=== PATIENT | female | born 2000 | race Caucasian/White ===

== ENCOUNTER 2023-01-25 05:24 | Inpatient (IN) | payer OTHER, SELFPAY ==
[2023-01-25] VITALS (40 sets, daily range): BP systolic 104–148; BP diastolic 47–84; PULSE 74–196; RESP 13–29; TEMP 36.4–36.8; O2SAT 97–100
[2023-01-25 06:33] LABS: Basophils Percent Auto 0.3 % (0.2-2.0); Eosinophils Absolute Auto 0.1 10^3/uL (0.0-0.7); Eosinophils Percent Auto 0.6 % (0.9-7.0); Hematocrit 34.1 % (36.0-48.0); Hemoglobin 11.2 g/dL (12.0-16.0); Immature Granulocytes Abs Auto 0.11 10^3/uL (0.00-0.03); Lymphocytes Percent Auto 18.3 % (20.5-60.0); Mean Corpuscular HGB Conc 32.8 g/dL (29.9-35.2); Mean Corpuscular Hemoglobin 27.8 pg (26.7-34.0); Mean Corpuscular Volume 84.6 fL (81.0-99.0); Mean Platelet Volume 12.2 fL (9.5-13.5); Monocytes Absolute Auto 0.8 10^3/uL (0.3-0.8); Monocytes Percent Auto 7.5 % (1.7-12.0); Neutrophils Percent Auto 72.3 % (43.0-75.0); Platelet Count 123 10^3/uL (150-450); Red Blood Count 4.03 10^6/uL (4.20-5.40); Red Cell Distribution Width 14.6 % (11.0-15.0)
[2023-01-25 06:35] LABS: Bilirubin Urine SMALL (NEGATIVE); Blood Urine NEGATIVE (NEGATIVE); Color Urine YELLOW (YELLOW); Glucose Urine UA NEGATIVE (NEGATIVE); Ketones Urine >=80 mg/dL (NEGATIVE); Leukocyte Esterase Urine TRACE (NEGATIVE); Nitrite Urine NEGATIVE (NEGATIVE); Protein Urine TRACE mg/dL (NEG/TRACE); Specific Gravity Urine 1.025 (1.005-1.025); pH Urine 6.5 (5.0-9.0)
[2023-01-25 06:44] LABS: Amphetamine Screen Urine NEGATIVE (NEGATIVE); Bacteria Urine SMALL #/HPF (NONE SEEN); Barbiturates Screen Urine NEGATIVE (NEGATIVE); Benzodiazepines Screen Urine NEGATIVE (NEGATIVE); Buprenorphine Screen Urine NEGATIVE (NEGATIVE); Cannabinoid Screen Urine NEGATIVE (NEGATIVE); Cast Seen? NONE SEEN #/LPF (NONE SEEN); Clarity Urine SLIGHTLY CLOUDY (CLEAR); Cocaine Screen Urine NEGATIVE (NEGATIVE); Crystals Seen? None Seen #/HPF (None Seen); Methadone Screen Urine NEGATIVE (NEGATIVE); Methamphetamines Screen Urine NEGATIVE (NEGATIVE); Mucus Urine NONE SEEN (NONE SEEN); Opiate Screen Urine NEGATIVE (NEGATIVE); Oxycodone Screen Urine NEGATIVE (NEGATIVE); Phencyclidine Screen Urine NEGATIVE (NEGATIVE); RBC Urine NONE SEEN #/HPF (0-2); Squamous Epithelial Cell Urine MANY #/LPF (NONE/RARE); Tricyclic Antidepressant Urine NEGATIVE (NEGATIVE); WBC Urine 0-2 #/HPF (NONE SEEN)
[2023-01-25] MEDS: LACTATED RINGER'S SOLUTION 1,000 ML 2000 ML IV (07:05)
--- NOTE | 2023-01-25 07:15 | P.OBHP_ITS ---
OB - H&P: HPI History of Present Illness Chief complaint: L&d : 2 Para: 1 Gestational age based on last menstrual period: 39.0 History of Present Dating criteria: LMP confirmed by 1st trimester US care: good care Ultrasounds: normal 1st trimester US and normal mid trimester US complications comment: none Medical complications OB: other Labs Blood type: A (+) positive Rubella: immune RPR/VDLR: nonreactive GBS status: positive HBsAG: negative Meds Home Medications and Allergies Allergies Allergy/AdvReac Type Severity Reaction Status Date / Time No Known Drug Allergies Allergy Verified 01/25/23 07:04 Exam Constitutional Vital Signs, click to edit/add: Last Vital Signs Temp 97.7 F 01/25/23 06:30 Pulse 116 H 01/25/23 06:30 Resp 18 01/25/23 06:30 BP 148/64 H 01/25/23 06:30 Pulse Ox 98 01/25/23 06:30 O2 Del Method Room Air 01/25/23 06:30 Common normals: no apparent distress and oriented x3 Orientation/consciousness: Yes awake, Yes oriented to person, Yes oriented to place and Yes oriented to time HENMT Common normals: normocephalic Eye Common normals: EOMs intact bilaterally Neck & C-Spine Common normals: full ROM and no lymphadenopathy Lymph Lymphatic: no lymphadenopathy noted Chest Common normals: inspection of chest normal Respiratory Common normals: normal respiratory effort Auscultation: clear to auscultation bilaterally Cardio Common normals: regular rate and regular rhythm GI Common normals: Normal to inspection, nondistended, normoactive bowel sounds present Inspection: normal to inspection Common normals: no CVA tenderness Back & Pelvis Common normals: no CVA tenderness Extremity Common normals: normal to inspection and full ROM Neuro Common normals: oriented x3 and moves all extremities Sensorium/orientation: awake, alert, oriented to person, oriented to place and oriented to time Psych Common normals: mental status grossly normal Results Labs Labs: Short CBC 01/25/23 Range/Units 06:05 WBC 11.0 (4.0-11.0) 10^3/uL Hgb 11.2 L (12.0-16.0) g/dL Hct 34.1 L (36.0-48.0) % Plt Count 123 L (150-450) 10^3/uL Urine 01/25/23 Range/Units 06:05 Urine Color Yellow (YELLOW) Urine Clarity Slightly cloudy A (CLEAR) Urine pH 6.5 (5.0-9.0) Ur Specific [place] 1.025 (1.005-1.025) Urine Protein Trace (NEG/TRACE) mg/dL Urine Glucose (UA) Negative (NEGATIVE) mg/dL OB - A/P Assessment and Plan (1) Term : (2) Status post repeat low transverse section: Plan repeat section Additional Plan Induction method: none Plan: expectant management and other (repeat section )
[2023-01-25] MEDS: ONDANSETRON PF 4 MG/2 ML VIAL IV (07:20)
[2023-01-25] MEDS: METOCLOPRAMIDE HCL 10 MG/2 ML VIAL IVP (07:20)
[2023-01-25] MEDS: CEFAZOLIN SODIUM/DEXTROSE,ISO 2 GM/50 ML PIGGYBACK IV ×2 (07:21→15:02)
[2023-01-25] MEDS: CITRIC ACID/SODIUM CITRATE 30 ML SOLUTION ORACIT SHOHL'S SOLN PO (07:21)
--- NOTE | 2023-01-25 07:30 | PC.NURSE ---
Pre-op GI meds and ATB admin as ordered. Anesthesia at bedside.
--- NOTE | 2023-01-25 08:36 | PM.ONB ---
Brief Operative Note Date of procedure: 01/25/23 Pre-op diagnosis: iup at 39wks, previous c/s Post-op diagnosis: same as pre-op Procedure: NAME OF PROCEDURE: [ section ] PROCEDURE: Patient was taken back to the Operating Room where she was given a spinal anesthesia with Duramorph without difficulty. She was prepped and draped in the normal sterile fashion. A Pfannenstiel skin incision was then made 2 cm above the symphysis pubis and carried down to underlying rectus fascia using a Bovie. The fascia was incised in the midline and extended laterally using Anderson scissors. Two Joseline clamps were placed on the superior aspect of the fascia and dissected off the underlying rectus muscles. The same was performed on the inferior aspect as well. The muscles were then in the midline. Peritoneum was identified and entered bluntly. The peritoneum was then extended superiorly and inferiorly with good visualization of the bladder. The bladder blade was inserted. A low transverse incision was made on the patient's uterus and extended laterally digitally. The infant was then delivered atraumatically after the bladder blade was removed in the cephalic position. The cord was clamped and cut. Cord blood was obtained. The was handed off to awaiting team. The patient's placenta was spontaneously delivered. The uterus was then exteriorized. The uterus was cleared of all clots and debris. The bladder blade was reinserted. The patient's uterine incision was closed using #0 Vicryl in a running lock fashion. Excellent hemostasis was assured. The uterus was then returned to the patient's abdomen. The patient's abdomen was copiously irrigated using warm saline. Peritoneal gutters were cleared of all clots and debris. Again excellent hemostasis was assured. The patient's peritoneum was closed using 3-0 Vicryl in a running fashion. The patient's fascia was closed using #0 Vicryl in a running fashion. The patient's skin was closed using 4-0 Vicryl subcuticularly. The patient tolerated the procedure well. Sponge, lap, and needle counts were correct x2. The patient was taken to the Recovery Room in stable condition. Anesthesia: spinal Surgeon: Oleksandr Roberson Wood Floor Refinisher: HOOD AMADOR Estimated blood loss (mL): 600 Pathology: none sent Condition: stable Disposition: floor
--- NOTE | 2023-01-25 08:37 | PM.OBPRCCS ---
Procedure Pre-op/Post-op diagnoses: Pre-Op/Post-Op Diagnoses Operation Date: 01/25/23 07:30 <No data on this case meets the specified criteria> Procedure: Procedures Operation Date: 01/25/23 07:30 Actual Procedure Side Surgeon p repeat (Francesca Amador) Not Applicable Oleksandr Roberson DO Nursing Surgical Services Director: HOOD AMADOR Estimated blood loss (mL): 600 Disposition: PACU Anesthesia type: Spinal
[2023-01-25] MEDS: LACTATED RINGER'S SOLUTION 1,000 ML 50 ML IV (08:40)
--- NOTE | 2023-01-25 09:05 | P.EN_ITS ---
Event Note Event Note: [employer] Note: I first assisted Dr Roberson with repeat section. I first assisted as directed by physician. I independently closed the SQ layer with 3-0 vicryl without difficulty. I then independently closed the skin incision with 4-0 vicryl on a Vitaliy needle without difficulty. Good hemostasis noted at completion. Patient tolerated procedure well.
[2023-01-25] MEDS: OXYTOCIN/0.9 % SODIUM CHLORIDE 20 UNITS/1,000 ML PLAST..BAG 200 UNIT IV (09:11)
[2023-01-25] MEDS: KETOROLAC TROMETHAMINE 30 MG/ML VIAL IVP ×3 (09:34→22:27)
[2023-01-25] MEDS: ENOXAPARIN SODIUM 40 MG/0.4 ML SYRINGE SUBQ (22:27)
[2023-01-26] VITALS (11 sets, daily range): BP systolic 95–102; BP diastolic 54–63; PULSE 70–74; RESP 16–18; TEMP 36.8–37.1
[2023-01-26] MEDS: KETOROLAC TROMETHAMINE 30 MG/ML VIAL IVP ×4 (05:00→22:04)
[2023-01-26 06:03] LABS: Basophils Percent Auto 0.2 % (0.2-2.0); Eosinophils Absolute Auto 0.1 10^3/uL (0.0-0.7); Eosinophils Percent Auto 0.6 % (0.9-7.0); Hematocrit 28.4 % (36.0-48.0); Hemoglobin 9.2 g/dL (12.0-16.0); Immature Granulocytes Abs Auto 0.12 10^3/uL (0.00-0.03); Lymphocytes Absolute Auto 2.2 10^3/uL (1.2-3.8); Lymphocytes Percent Auto 18.1 % (20.5-60.0); Mean Corpuscular HGB Conc 32.4 g/dL (29.9-35.2); Mean Corpuscular Volume 86.3 fL (81.0-99.0); Mean Platelet Volume 11.7 fL (9.5-13.5); Monocytes Absolute Auto 1.3 10^3/uL (0.3-0.8); Monocytes Percent Auto 10.4 % (1.7-12.0); Neutrophils Absolute Auto 8.5 10^3/uL (1.4-6.5); Neutrophils Percent Auto 69.7 % (43.0-75.0); Platelet Count 127 10^3/uL (150-450); Red Blood Count 3.29 10^6/uL (4.20-5.40); Red Cell Distribution Width 14.6 % (11.0-15.0); White Blood Count 12.2 10^3/uL (4.0-11.0)
--- NOTE | 2023-01-26 07:30 | W.PC.ACHO ---
Registration Status: ADM IN Primary Language: Estonian Preferred Language: Estonian Report is given. Care was relinguished. Diet Category Date Time Status NPO Diet Diet 01/25/23 05:39 Active Consults Category Date Time Status Consult to Anesthesiology Routine Cons 01/25/23 Ordered IV Insertion/Site Date of IV Line Insertion [ 01/25/23 right Wrist] IV Insertion Time [right Wrist 06:05 ] Neurology Patient orientation (short person,place,time,situation list) Respiratory Pulse Oximetry 98 Oxygen Delivery Method Room Air
--- NOTE | 2023-01-26 08:41 | P.OBPN_ITS ---
OB - PN: Subj Subjective Patient comments: no complaints and pain well controlled [place] status: doing well Exam Constitutional Vital Signs, click to edit/add: Last Vital Signs Temp 98.2 F 01/25/23 22:25 Pulse 71 01/26/23 04:47 Resp 15 01/25/23 12:30 BP 102/55 01/26/23 04:47 Pulse Ox 99 01/25/23 12:35 O2 Del Method Room Air 01/25/23 09:30 Documenting provider has reviewed patient's vital signs: yes Common normals: no apparent distress Respiratory Common normals: normal respiratory effort and clear to auscultation bilaterally Cardio Common normals: regular rate and regular rhythm GI Common normals: Normal to inspection, nondistended, normoactive bowel sounds present Extremity Common normals: no clubbing, cyanosis or edema and no calf tenderness Results Labs Labs: Short CBC 01/26/23 Range/Units 05:52 WBC 12.2 H (4.0-11.0) 10^3/uL Hgb 9.2 L (12.0-16.0) g/dL Hct 28.4 L (36.0-48.0) % Plt Count 127 L (150-450) 10^3/uL OB - PN: A/P Assessment and Plan (1) Term : (2) Status post repeat low transverse section: Plan - day: 1 Plan: routine postop care Time Spent with Patient Time: Total time spent is greater than 50% in coordination of care (as documented) at patient's floor/unit and/or counseling patient: Total time spent with greater than 50% in coordination of care (as documented) at patient's floor/unit and/or counseling patient: less than 15 minutes
[2023-01-26] MEDS: DOCUSATE SODIUM 100 MG CAPSULE PO ×2 (10:44→22:04)
--- NOTE | 2023-01-26 10:55 | PC.NURSE ---
1055 abdominal dressing removed, GEORGETTE with SS intact.
[2023-01-26] MEDS: ENOXAPARIN SODIUM 40 MG/0.4 ML SYRINGE SUBQ (22:04)
[2023-01-27] MEDS: OXYCODONE HCL/ACETAMINOPHEN 5MG/325MG 1 TAB PO (08:31)
[2023-01-27] MEDS: DOCUSATE SODIUM 100 MG CAPSULE PO (08:31)
[2023-01-27 08:36] VITALS: BP 101/59; PULSE 76
--- NOTE | 2023-01-27 11:15 | PM.OBDS ---
DS: Providers Provider Date of admission: 01/25/23 05:24 Primary care physician: DRAGAN BLACKWOOD Attending physician on admission: Oleksandr Roberson Consults: 01/25/23 Consult to Anesthesiology Routine Consulting Provider: Td Bains Reason for consultation: spinal Has provider been notified: Yes Discharging clinician: Anne Fisher DS: Diagnosis Discharge Diagnosis (1) Status post repeat low transverse section: Assessment and plan: CLINICAL EXAM NON FOCAL. REQUESTING TO BE DISCHARGED. SCRIPTS TO BE PROVIDED. TEACHING DONE WITH STATED UNDERSTANDING Plan ROUTINE POST C - SECTION INSTRUCTIONS GIVEN OB - DS: Summary Hospital Course Hospital Course: UNCOMPLICATED Peripartum Data - Procedures: Procedures Operation Date: 01/25/23 07:30 Actual Procedure Side Surgeon p repeat (Francesca Tiwari) Not Applicable Oleksandr Roberson DO Peripartum Data - Vaginal Delivery Procedures: Procedures Operation Date: 01/25/23 07:30 Actual Procedure Side Surgeon p repeat (Francesca Tiwari) Not Applicable Oleksandr Roberson DO Complications complications: none Delivery method: section Gender: male Discharge plan: home Status at Discharge Functional status at discharge: independent ambulation Time Spent with Patient Time attestation: Total time spent providing and/or coordinating discharge services: Time spent: less than 30 minutes Exam Constitutional Vital Signs, click to edit/add: Last Vital Signs Temp 98.8 F 01/26/23 22:41 Pulse 76 01/27/23 08:36 Resp 16 01/26/23 22:41 BP 101/59 01/27/23 08:36 Pulse Ox 99 01/25/23 12:35 O2 Del Method Room Air 01/25/23 09:30 Documenting provider has reviewed patient's vital signs: yes Common normals: no apparent distress HENMT Common normals: normocephalic and head/scalp atraumatic Eye Pupil: PERRL and accommodation reflex normal Neck & C-Spine Common normals: full ROM Respiratory Common normals: normal respiratory effort Cardio Common normals: regular rate and regular rhythm GI Common normals: Normal to inspection, nondistended, normoactive bowel sounds present Back & Pelvis Common normals: no CVA tenderness Extremity Common normals: normal to inspection, full ROM and no calf tenderness Neuro Common normals: CN's II-XII intact bilaterally, no focal motor deficits and no sensory deficits noted Psych Common normals: mental status grossly normal, cooperative and affect normal Discharge Plan Discharge Disposition: Home, Self-Care Condition: Good Assessment: CONDITION GOOD, VOICING NO COMPLAINTS, AMBULATING EATING AND ELIMINATING NORMAL, VSS, AFEBRILE, INCISION CLEAN AND INTACT Plan of Treatment: ROUTING POST CSECTION CARE Discharge Medications: New ibuprofen 800 mg tablet 800 mg PO Q8H PRN (Reason: pain) 14 Days Qty: 40 0RF oxycodone-acetaminophen [Percocet] 5-325 mg tablet 1 tab PO Q6H PRN (Reason: pain) 7 Days Qty: 28 0RF Continued [id number] 1 mg tablet PO Activity: resume usual activities as tolerated Activity Detail: NO SEX SIX WEEKS, MAY CLIMB STAIRS, WALKING ONLY EXERCISE, ONLY LIFT BABY, SPORTS BRA IF DECIDES TO STOP BREAST FEEDING, MAKE APPOINTMENT TO SEE DR. ROBERSON WITHIN WEEK FOR INCISION CHECK, CALL FOR PROBLEM OR CONCERN Diet: regular diet Patient Instructions: (DC) Activity Restrictions/Additional Instructions: STATED ABOVE Forms: Portal Instructions Follow Up Appointments: NEEDIS TO SEE DR. ROBERSON IN ONE WEEK FOR INCISION CHECK Discharge location: HOME
[2023-01-27 11:39] VITALS: BP 101/59; PULSE 76; RESP 16; TEMP 36.8
== END 2023-01-27 14:00 | disposition home or self-care (01) | DRG 788 ==
PROVIDERS: Obstetrics & Gynecology; Admitting Provider Midwife; PCP Internal Medicine; Visit Provider Obstetrics & Gynecology
PROC: 10D00Z1 Extraction of Products of Conception, Low, Open Approach (ICD-10-PCS; CPT 59514; principal; 2023-01-25 07:30)
DX: O34.211 Maternal care for low transverse scar from previous cesarean delivery (principal); Z3A.39 39 weeks gestation of pregnancy; Z37.0 Single live birth; O99.824 Streptococcus B carrier state complicating childbirth; Z23 Encounter for immunization
CPT/HCPCS: 36415; 80307; 81001; 85025; 86850; 86900; 86901; 94667; 94668; 96372; 96374; 96375; 96376

== ENCOUNTER 2023-01-29 08:40 | Outpatient (OUT) | payer OTHER, SELFPAY ==
--- NOTE | 2023-01-29 15:35 | PC.NURSE ---
Family arrives for follow up visit. Mom states she is doing well, first night home difficult but last night was much better. Family adjusting well to new baby, father supportive and hands on. Iesha states continues to take Percocet every 6-8 hours and has 1-2 doses of Motrin in 24 hours. No further comments or concerns noted. going well, nipples intact, feeds every 1-3 hours as baby cues for feed. Only feeds 1 breast for 30 minutes. Discussed benefits of nursing from both breasts at each feeding. Verbalized understanding. Baby attempts to latch in cradle hold, displays difficulties reaching breast and mom states he gets so frustrated with latching . Shown to use cross cradle hold for deeper latching, ease and comfort. Mom pleased with better positioning. Rodrick has audible swallows and feeds well. Assessment WNL and has large void and mod yellow stool during assessment. No concerns noted at this time. om aware to call or attend MOMS group as needed for continued support.
[2023-01-29 15:36] VITALS: BP 104/73; PULSE 68; RESP 16; TEMP 36.7; O2SAT 97
--- OUTSIDE RECORDS SUMMARY | 2023-03-06 18:44 | XMS_ITS | CCD ---
Author Name Unknown Address [address] [place] [address] Organization [facility] Care Team Providers Care Parts Product Analyst Name Role Phone SOHEILA MEHTA Referring Unavailabl e HIESTAND, DRAGAN Herrera Primary Care Unavailable SOHEILA MEHTA Referring Unavailabl e HIESTAND, DRAGAN Herrera Primary Care Unavailable ELISA RUVALCABA Admitting Unav ailable ELISA RUVALCABA Attending Unav ailable DRAGAN BLACKWOOD Admitting Unavailable DRAGAN BLACKWOOD Consulting Unavailable DRAGAN BLACKWOOD Attending Unavailable LA MALDONADO Admitting Unavailable ERICALA GAYLE Consulting Unavailable ERICALA GAYLE Attending Unavailable FLORHOOD Grimaldo Attending Unavailable FLORHOOD Grimaldo Attending Unavailable Problems Active Problems Problem Classification Problem Date Documented Da te Episodic/Chronic Administrative/social admission (4 sources) Encounter for pre-employment examination; Translations: [ENCOUNTER FOR PRE-EMPLOYMENT EXAM] Onset: 03-26-2020 Episodic Menstrual disorders (1 source) Amenorrhea, unspecified; Translations: [Amenorrhea, unspecified] Onset: 06-24-2018 Chronic Other and delivery including normal (2 sources) Encounter for supervision of normal , unspecified, first trimester; Translations: [Encounter for test, result positive] Onset: 06-24-2018 Episodic Past or Other Problems Problem Classification Problem Date Documented Da te Episodic/Chronic Immunizations and screening for infectious disease (4 sources) Contact with and (suspected) exposure to other viral communicable diseases; Translations: [CONTCT EXPS OTH VIRL COMMUNICABL DZ] Onset: 10-01-2019 Episodic Results Test Name Value Interpretation Reference Range Facil ity HEPATITIS B SURFACE ANTIBODY , QUANTon 03-30-2020 Hepatitis B Surf AB Quant <3.1 Critically low Immuni ty>9.9 [facility] Comment on above: Result Comment: Stat us of Immunity Anti-HBs Level Inconsistent with Immunity 0.0 - 9.9 Consistent with Immunity >9.9 Performed By: #### H EPBSRF #### [facility] [address] [place] [address] Darya Camejo MMR IMMUNITYon 03-30-2020 Mumps Abs, IgG 23.7 AU/mL Normal Immune >10.[address] [facility] Comment on above: Result Comment: Nega tive <9.0 Equivocal 9.0 - 10.9 Positive >10.9 A positive result generally indicates past exposure to Mumps virus or previous vaccination. Performed By: #### M MRIMMU #### [facility] [address] [place] [address] Darya Camejo Rubella Antibodies, IgG 1.71 index Normal Immune >0.99 [facility] Comment on above: Result Comment: Non- immune <0.90 Equivocal 0.90 - 0.99 Immune >0.99 Performed By: #### M MRIMMU #### [facility] [address] [place] [address] Darya Camejo Rubeola Ab, IgG 82.4 AU/mL Normal Immune >16.4 [facility] Comment on above: Result Comment: Nega tive <13.5 Equivocal 13.5 - 16.4 Positive >16.4 Presence of antibodies to Rubeola is presumptive evidence of immunity except when acute infection is suspected. Performed By: #### M MRIMMU #### [facility] [address] [place] [address] Darya Camejo QUANTIFERON TB GOLD PLUS (NO N-INC)on 03-30-2020 Comment Incubation performed. Normal [facility] Comment on above: Performed By: #### Q NTTBG #### [facility] [address] [place] [address] Darya Camejo Criteria Comment Normal [facility] Comment on above: Result Comment: The QuantiFERON-TB Gold Plus result is determined by subtracting the Nil value from either TB antigen (Ag) tube. The mitogen tube serves as a control for the test. Performed By: #### Q NTTBG #### [facility] [address] [place] [address] Daryarosmery Judgeen Mitogen Value >10.00 Normal [facility] Comment on above: Performed By: #### Q NTTBG #### [facility] [address] [place], [place] [id number] Darya Nell Nill Value 0.03 IU/mL Normal [facility] Comment on above: Performed By: #### Q NTTBG #### [facility] [address] [place] [address] Daryarosmery Judgeen Quantiferon Gold Plus Negative Normal Negative [facility] Comment on above: Performed By: #### Q NTTBG #### [facility] [address] [place] [address] Darya Nell TB1 Ag Value 0.02 IU/mL Normal [facility] Comment on above: Performed By: #### Q NTTBG #### [facility] [address] [place] [address] Darya Nell TB2 Ag Value 0.03 IU/mL Normal [facility] Comment on above: Performed By: #### Q NTTBG #### [facility] [address] [place] [address] Darya Camejo VARICELLA IGG ABon 1 Varicella Zoster IgG <135 Critically low Immune >165 [facility] Comment on above: Result Comment: Nega tive <135 Equivocal 135 - 165 Positive >165 A positive result generally indicates exposure to the pathogen or administration of specific immunoglobulins, but it is not indication of active infection or stage of disease. Performed By: #### V ARCEL #### [facility] [address] [place] [address] Darya Judgeen COVID-19 PCRon 10-04-2019 SARS-CoV-2, DYLAN Not Detected Normal Not Detected [facility] Comment on above: Result Comment: This test was developed and its performance characteristics determined by [facility]. This test has not been FDA cleared or approved. This test has been authorized by FDA under an Emergency Use Authorization (EUA). This test is only authorized for the duration of time the declaration that circumstances exist justifying the authorization of the emergency use of in vitro diagnostic tests for detection of SARS-CoV-2 virus and/or diagnosis of COVID-19 infection under section 564(b)(1) of the Act, 21 U.S.C. 360bbb-3(b)(1), unless the authorization is terminated or revoked sooner. When diagnostic testing is negative, the possibility of a false negative result should be considered in the context of a patient's recent exposures and the presence of clinical signs and symptoms consistent with COVID-19. An individual without symptoms of COVID-19 and who is not shedding SARS-CoV-2 virus would expect to have a negative (not detected) result in this assay. Performed By: #### C VDPCR #### [facility] [address] [address] Darya Oglesby & AYE RAMIREZon 04-28-2019 Chlamydia, DNA Negative Normal Negative [facility] Comment on above: Result Comment: The APTIMA Combo 2 Assay is a target amplification nucleic acid probe test that utilizes target capture for the in-vitro qualitative detection of ribosomal RNA (rRNA) form Chlamydia trachomatis/CT and /or Neisseria gonorrhoeae/GC. A negative result does not preclude the presence of a CT or GC infection because results are dependent of adequate specimen collection, absence of inhibitors and sufficient rRNA to be detected. Results from the APTIMA Combo 2 Assay should be interpreted in conjunction with other laboratory and clinical data available to the clinician. Performed By: #### . Automated Diff #### [facility] [address] [place] [address] Gonorrhea, DNA Negative Normal Negative [facility] Comment on above: Result Comment: The APTIMA Combo 2 Assay is a target amplification nucleic acid probe test that utilizes target capture for the in-vitro qualitative detection of ribosomal RNA (rRNA) form Chlamydia trachomatis/CT and /or Neisseria gonorrhoeae/GC A negative result does not preclude the presence of a CT or GC infection because results are dependent of adequate specimen collection, absence of inhibitors and sufficient rRNA to be detected. Results from the APTIMA Combo 2 Assay should be interpreted in conjunction with other laboratory and clinical data available to the clinician. Performed By: #### . Automated Diff #### [place] [address] Operative Reporton Operative Report Patient: Iesha Thomas Age: 18 years Sex: Female : 2000 Associated Diagnoses: None Author: Elisa Elizalde DO Preop: IUP at term Suspected CPD Persistent OP presentation Nonreassuring heart tones Post op: Same Procedure: Primary low transverse Surgeon: Elisa Elizalde D.O. Asst: Deven GarciaNMorris Anesthesia: epidural EBL: 600 cc Fluids: LR Urine: clear Condition: stable Complications: none Findings: Viable male in vtx presentation with caput; OP presentation; grossly nl uterus, tubes, and ovaries. Operative Note: The patient was taken to the operating suite where her epidural anesthesia was found to be adequate. She was prepped and draped in the normal sterile fashion in dorsal supine position with a leftward tilt. Time-out was performed prior to procedure start. A Morrow catheter was in place and draining. A Pfannenstiel skin incision was created with the scalpel and carried down to the underlying fascia. The fascia was incised in the midline and extended laterally and mildly elliptically using the Anderson scissors. The underlying rectus muscles were dissected free of the fascia, superiorly and inferiorly, and bluntly. The peritoneum was entered sharply. The peritoneal cavity was free of adhesions. The bladder blade was inserted. A hysterotomy was created in the low transverse fashion in the lower uterine segment with the scalpel and extended bluntly. The amnion was ruptured with an Allis clamp with clear fluid being noted. The head was delivered atraumatically through the hysterotomy, followed by both shoulders and the rest of the body. Spontaneous cry was noted upon delivery. The infant?s nose and mouth were bulb suctioned, the cord was doubly clamped and cut, and the was handed off to the nurses for further evaluation. The placenta was delivered. The uterus was exteriorized and a damp laparotomy pad used to clear the endometrial cavity, removing any remaining clot and membrane. The uterine incision was closed in a double layer fashion with 0 Vicryl with hemostasis being noted. The uterus was firm and returned to the abdomen. The gutters were cleared of all clot and debris. Hemostasis was assured. The peritoneum was closed with 3-0 Vicryl. Hemostasis was noted on the rectus muscles. The fascia was closed in a running fashion with 0 Vicryl. The subcutaneous layer was inspected and points of bleeding were cauterized. The sub-q layer was reapproximated with 3-0 Vicryl. The skin was closed in a subcuticular fashion with 4-0 Monocryl. Steri-strips and Mepilex dressing placed. All sponge, lap, needle and instrument counts were correct x 2. The patient tolerated the procedure well and was taken to her labor and delivery room to recover in apparently stable condition. Electronically signed by Elisa Elizalde DO 02/03/19 15:45 EST Normal [facility] CBC w/ Diffon 01-27-2019 Erythrocyte distribution wid th (RBC) [Ratio] 15.8 % High 11.6-14.8 [facility] Comment on above: Performed By: #### . Automated Diff #### [address] [address] Hematocrit (Bld) [Volume fraction] 26.5 % Low 36.0-46.0 [facility] Comment on above: Performed By: #### . Automated Diff #### [address] [address] Hemoglobin (Bld) [Mass/Vol] 8.6 g/dL Low 12.0-16. 0 [facility] Comment on above: Performed By: #### . Automated Diff #### [address] [address] MCH (RBC) [Entitic mass] 27.3 pg Normal 27.0-35.0 [facility] Comment on above: Performed By: #### . Automated Diff #### [address] [address] MCHC (RBC) [Mass/Vol] 32.5 % Normal 31.0-37.0 [facility] Comment on above: Performed By: #### . Automated Diff #### [address] [address] MCV (RBC) [Entitic vol] 83.9 fL Normal 80.0-100.0 [facility] Comment on above: Performed By: #### . Automated Diff #### [address] [address] Platelet mean volume (Bld) [Entitic vol] 9.3 fL Normal 6.7-10.6 [facility] Comment on above: Performed By: #### . Automated Diff #### [address] [address] Platelets (Bld) [#/Vol] 131 x10*3/mcL Low 150-350 [facility] Comment on above: Performed By: #### . Automated Diff #### [address] [address] RBC (Bld) [#/Vol] 3.16 x10*6/mcL Low 3.80-5.20 [facility] Comment on above: Performed By: #### . Automated Diff #### [address] [address] WBC (Bld) [#/Vol] 13.3 x10*3/mcL High 4.5-11.0 [facility] Comment on above: Performed By: #### . Automated Diff #### [address] [address] Diff Autoon 01-27-2019 Baso Absolute 0.0 x10*3/mcL Normal 0.0-0.2 [facility] Comment on above: Performed By: #### . Automated Diff #### [address] [address] Basophils/100 WBC (Bld) 0.1 % Normal 0.0-1.5 [facility] Comment on above: Performed By: #### . Automated Diff #### [address] [address] Eos Absolute 0.1 x10*3/mcL Normal 0.0-0.4 [facility] Comment on above: Performed By: #### . Automated Diff #### [address] [address] Eosinophils/100 WBC (Bld) 0.4 % Normal 0.0-5.4 [facility] Comment on above: Performed By: #### . Automated Diff #### [address] [address] Lymphocytes (Bld) [#/Vol] 2.0 x10*3/mcL Normal 1.2-5.2 [facility] Comment on above: Performed By: #### . Automated Diff #### [address] [address] Lymphocytes/100 WBC (Bld) 14.7 % Low 28.0-42.0 [facility] Comment on above: Performed By: #### . Automated Diff #### [address] [address] [place] Absolute 1.5 x10*3/mcL High 0.1-1.1 [facility] Comment on above: Performed By: #### . Automated Diff #### [address] [address] Monocytes/100 WBC (Bld) 11.4 % Normal 3.7-11.9 [facility] Comment on above: Performed By: #### . Automated Diff #### [address] [address] Neutro Absolute 9.8 x10*3/mcL High 1.8-8.0 [facility] Comment on above: Performed By: #### . Automated Diff #### [address] [address] Neutro Auto 73.4 % High 45.6-68.4 [facility] Comment on above: Performed By: #### . Automated Diff #### [facility] [address] [place] [address] Inpatient Clinical Summaryon 01-27-2019 Inpatient Clinical Summary [address] [address] Clinical Summary Person Information Name: Iesha Thomas Age: 18 Years : 2000 Sex: Female PCP: Marital Status: Single PCP: Race: White Ethnicity: Not or Language: German Visit Id: Visit Reason: IUP Speciality: Acuity: PP C/S Enc Type: Inpatient Med Service: Gynecology-Obstetrics Arrival: 01/24/2019 10:56:00 Discharge: Dispo Type: Address: [address] [place] [address] [place] [address] Diagnosis: Mother positive for group B Streptococcus colonization; Post-op pain; Prolonged ; Thin meconium stained amniotic fluid Discharged To: Home Treatments: Devices/Equipment: Professional Skilled Services: Special Services and Community Resources: Mode of Discharge Transportation: Discharge Orders Activity Restrictions Diet Instruction Regular home diet Discharge Special Instructions Follow up 01/27/19 10:35:00 EST, 1 week Allergies No Known Allergies Functional Status: Sensory Deficits: History of Falls: Mobility Assistance Prior to Admission: ADLs: Independent Gait: Steady Ambulation Assist: Assistive Device: Special Orthopedic Devices: Current Level of Assistance for Self-Care/Mobility: Cognitive Status: Orientation: Orientation Assessment Oriented x 4 Level of Consciousness: Alert Characteristics of Speech: Clear Aspiration Risk: None Affect/Behavior: Appropriate, Calm, Cooperative Laboratory or Other Results This Visit (last charted value for your 01/24/2019 visit) Hematology 01/27/2019 8:41 AM WBC: 13.3 x10 RBC: 3.16 x10 Neutro Auto: 73.4 % -- Normal range between ( 45.6 and 68.4 ) Lymph Auto: 14.7 % -- Normal range between ( 28.0 and 42.0 ) [place] Auto: 11.4 % -- Normal range between ( 3.7 and 11.9 ) Eos Auto: 0.4 % -- Normal range between ( 0.0 and 5.4 ) Basophil Auto: 0.1 % -- Normal range between ( 0.0 and 1.5 ) Baso Absolute: 0.0 x10 MCV: 83.9 fL -- Normal range between ( 80.0 and 100.0 ) MCHC: 32.5 % -- Normal range between ( 31.0 and 37.0 ) Lymph Absolute: 2.0 x10 Hct: 26.5 % -- Normal range between ( 36.0 and 46.0 ) [place] Absolute: 1.5 x10 MCH: 27.3 pg -- Normal range between ( 27.0 and 35.0 ) Neutro Absolute: 9.8 x10 Hgb: 8.6 g/dL -- Normal range between ( 12.0 and 16.0 ) Mean Platelet Volume: 9.3 fL -- Normal range between ( 6.7 and 10.6 ) Platelet: 131 x10 Eos Absolute: 0.1 x10 RDW: 15.8 % -- Normal range between ( 11.6 and 14.8 ) Urinalysis 01/24/2019 12:07 PM UA Spec Grav: 1.015 -- Normal range between ( 1.003 and 1.035 ) UA pH: 6.0 Chemistry 01/24/2019 12:07 PM Ur Creatinine Tox Scrn: 102.2 mg/dL Toxicology 01/24/2019 12:07 PM Ur Methadone Scrn w/Conf: Negative ng/mL Ur Amph Scrn w/Conf: Negative ng/mL Ur Serene Scrn w/Conf: Negative ng/mL Ur Benzodia Scrn w/Conf: Negative ng/mL Ur Cannab Scrn w/Conf: Negative ng/mL Ur Cocaine Scrn w/Conf: Negative ng/mL Ur Opiate Scrn w/Conf: Negative ng/mL Ur PCP Scrn w/Conf: Negative ng/mL Ur Buprenorphine Scrn w/Conf: Negative ng/mL Ur Oxy Screen w/Conf: Negative ng/mL Measurements: Height: Weight: Blood Pressure: 100 mmHg / BMI: Respiratory: Respirations: Unlabored, Quiet Respiratory Symptoms: Cardiovascular: Heart Sounds: Heart Rhythm: Regular Gastrointestinal: GI Symptoms: Bowel Sounds: Present Vital Signs: Temp Axillary: Temp Temporal Artery: 36.4 degC Temp Oral: 36.8 degC Temp Rectal: Apical Heart Rate: Peripheral Pulse Rate: 80 bpm Heart Rate: 88 bpm Respiratory Rate: 14 br/min Diet Diet: Feeding Tolerance: Appetite: Good [place] Assessment: 23 Procedures (01/25/2019) Section (01/25/2019) Immunizations No Immunizations Documented This Visit New Medications [facility], [address] [place], [place] [id number], [phone] docusate (Doculase 100 mg oral capsule) 1 Capsules Oral (given by mouth) 2 times a day. Refills: 0. Last Dose: ibuprofen (ibuprofen 800 mg oral tablet) 800 Milligram Oral (given by mouth) every 8 hours standard times as needed as needed for pain. Refills: 0. Last Dose: oxyCODONE-acetaminophen (oxyCODONE-acetaminophen 5 mg-325 mg oral tablet) 1 Tabs Oral (given by mouth) every 4 hours as needed moderate pain [4-6 on pain scale] for 7 Days. Refills: 0. Last Dose: Care Team Members: Attending Physician: Elisa Elizalde DO Consulting Physician: Referring Physician: Follow up: Michael [facility] Obstetrics Progress Noteon 1 03-29-2018 Obstetrics Progress Note Patient: Iesha Thomas Age: 18 years Sex: Female : 2000 Associated Diagnoses: Thin meconium stained amniotic fluid; Prolonged ; Post-op pain; Mother positive for group B Streptococcus colonization Author: William ERVIN, Elmira Beard Basic Information Pt is POD#2 s/p primary LTCS, doing well. Pain controlled, louise po well, voiding/amb without difficulties, decreased vb. Desires d/c today Review of Systems Constitutional: Negative. Respiratory: Negative. Cardiovascular: Negative. Gastrointestinal: Negative. Neurologic: Negative. Psychiatric: Negative. Health Status Allergies: Allergic Reactions (Selected) No Known Allergies Problem list: All Problems / [id number] / Confirmed, Problems (Active Problems Only) (SNOMED CT: [id number], Onset: 06/14/18) Physical Examination VS/Measurements Vital Signs (last 24 hrs) Last Charted Temp Oral 36.8 degC (JAN 27:) Heart Rate Peripheral 80 bpm (JAN 27:) Resp Rate 14 br/min (JAN 27:) SBP 100 mmHg (JAN 27:) DBP 64 mmHg (JAN 27:) General: Alert and oriented, No acute distress. HENT: Normocephalic. Respiratory: Respirations are non-labored. Cardiovascular: Normal rate. Gastrointestinal: Soft, Non-tender, Non-distended. Exam: incision: Clean, Dry. Uterus: Fundal height ( U/1 ). Integumentary: Warm, Dry. Neurologic: Alert, Oriented. Psychiatric: Cooperative, Appropriate mood & affect. Review / Management Results review: Labs (Last four charted values) WBC H 13.3 (JAN 27) H 22.8 (JAN 26) H 17.0 (JAN 25) H 13.9 (JAN 24) Hgb L 8.6 (JAN 27) L 10.2 (JAN 26) L 10.2 (JAN 25) L 10.3 (JAN 24) Hct L 26.5 (JAN 27) L 31.4 (JAN 26) L 30.6 (JAN 25) L 30.4 (JAN 24) Plt L 131 (JAN 27) 152 (JAN 26) 150 (JAN 25) L 114 (JAN 24) . Impression and Plan Condition: Stable. Plan Routine care. Diagnosis Thin meconium stained amniotic fluid (WDH26-FA P96.83, Discharge, Medical). Prolonged (RDM56-IH O48.1, Discharge, Medical). Post-op pain (VOK69-ES G89.18, Discharge, Medical). Mother positive for group B Streptococcus colonization (NRF63-EC P00.2, Discharge, Medical). Course: Progressing as expected, d/c home. Electronically signed by Elmira Thomas MD 01/27/19 10:36 EST Normal [facility] CBC w/ Diffon 01-26-2019 Erythrocyte distribution wid th (RBC) [Ratio] 15.8 % High 11.6-14.8 [facility] Comment on above: Performed By: #### . Automated Diff #### [address] [address] Hematocrit (Bld) [Volume fraction] 31.4 % Low 36.0-46.0 [facility] Comment on above: Performed By: #### . Automated Diff #### [address] [address] Hemoglobin (Bld) [Mass/Vol] 10.2 g/dL Low 12.0-16. 0 [facility] Comment on above: Performed By: #### . Automated Diff #### [address] [address] MCH (RBC) [Entitic mass] 27.4 pg Normal 27.0-35.0 [facility] Comment on above: Performed By: #### . Automated Diff #### [address] [address] MCHC (RBC) [Mass/Vol] 32.6 % Normal 31.0-37.0 [facility] Comment on above: Performed By: #### . Automated Diff #### [address] [address] MCV (RBC) [Entitic vol] 84.1 fL Normal 80.0-100.0 [facility] Comment on above: Performed By: #### . Automated Diff #### [address] [address] Platelet mean volume (Bld) [Entitic vol] 9.4 fL Normal 6.7-10.6 [facility] Comment on above: Performed By: #### . Automated Diff #### [address] [address] Platelets (Bld) [#/Vol] 152 x10*3/mcL Normal 150-350 [facility] Comment on above: Performed By: #### . Automated Diff #### [address] [address] RBC (Bld) [#/Vol] 3.73 x10*6/mcL Low 3.80-5.20 [facility] Comment on above: Performed By: #### . Automated Diff #### [address] [address] WBC (Bld) [#/Vol] 22.8 x10*3/mcL High 4.5-11.0 [facility] Comment on above: Performed By: #### . Automated Diff #### [address] [address] Diff Autoon 01-26-2019 Baso Absolute 0.0 x10*3/mcL Normal 0.0-0.2 [facility] Comment on above: Performed By: #### . Automated Diff #### [address] [address] Basophils/100 WBC (Bld) 0.1 % Normal 0.0-1.5 [facility] Comment on above: Performed By: #### . Automated Diff #### [address] [address] Eos Absolute 0.0 x10*3/mcL Normal 0.0-0.4 [facility] Comment on above: Performed By: #### . Automated Diff #### [address] [address] Eosinophils/100 WBC (Bld) 0.0 % Normal 0.0-5.4 [facility] Comment on above: Performed By: #### . Automated Diff #### [address] [address] Lymphocytes (Bld) [#/Vol] 0.7 x10*3/mcL Low 1.2-5.2 [facility] Comment on above: Performed By: #### . Automated Diff #### [address] [address] Lymphocytes/100 WBC (Bld) 2.9 % Low 28.0-42.0 [facility] Comment on above: Performed By: #### . Automated Diff #### [address] [address] [place] Absolute 1.0 x10*3/mcL Normal 0.1-1.1 [facility] Comment on above: Performed By: #### . Automated Diff #### [address] [address] Monocytes/100 WBC (Bld) 4.2 % Normal 3.7-11.9 [facility] Comment on above: Performed By: #### . Automated Diff #### [address] [address] Neutro Absolute 21.2 x10*3/mcL High 1.8-8.0 [facility] Comment on above: Performed By: #### . Automated Diff #### [address] [address] Neutro Auto 92.8 % High 45.6-68.4 [facility] Comment on above: Performed By: #### . Automated Diff #### [address] [address] Obstetrics Progress Noteon 1 03-28-2018 Obstetrics Progress Note Patient: Iesha Thomas Age: 18 years Sex: Female : 2000 Associated Diagnoses: None Author: Molly Neal CNM Progress Note S: Patient doing well s/p delivery. medications and comfort measures effective - pain controlled. Patient is tolerating a regular diet. She is ambulating without difficulty. Morrow is still in place. Bonding appropriately with baby. O: Vital signs are stable. Patient is afebrile. Vital Signs (last 24 hrs) Last Charted Temp Oral 36.7 degC (JAN 26) Resp Rate 18 br/min (JAN 26:) SBP 118 mmHg (JAN 26:) DBP 61 mmHg (JAN 26:) SpO2 94 % (JAN 26) CBC showed significant elevation in WBC and shift with elevated neutrophils Labs (Last four charted values) WBC H 22.8 (JAN 26) H 17.0 (JAN 25) H 13.9 (JAN 24) Hgb L 10.2 (JAN 26) L 10.2 (JAN 25) L 10.3 (JAN 24) Hct L 31.4 (JAN 26) L 30.6 (JAN 25) L 30.4 (JAN 24) Plt 152 (JAN 26) 150 (JAN 25) L 114 (JAN 24) Breasts: soft/not engorged; Patient is breast feeding. Abdomen: soft/appropriate tenderness/minimal distention; Fundus is firm and below the umbilicus. Incision is dry and intact with Mepilex dressing in place. A: Normal/stable course. P: D/C Morrow today. Routine supportive care. Collaborated with Dr Grace - will start antibiotics, monitor closely for fever or tachycardia, repeat CBC tomorrow morning. Electronically signed by Val RIZWANADeanneMolly Cay 01/26/19 10:04 EST Normal [facility] CBC w/ Diffon 01-25-2019 Erythrocyte distribution wid th (RBC) [Ratio] 15.9 % High 11.6-14.8 [facility] Comment on above: Performed By: #### C BC #### [facility] [address] [place] [address] Hematocrit (Bld) [Volume fraction] 30.6 % Low 36.0-46.0 [facility] Comment on above: Performed By: #### C BC #### [facility] [address] [place] [address] Hemoglobin (Bld) [Mass/Vol] 10.2 g/dL Low 12.0-16. 0 [facility] Comment on above: Performed By: #### C BC #### [facility] [address] [place] [address] MCH (RBC) [Entitic mass] 28.0 pg Normal 27.0-35.0 [facility] Comment on above: Performed By: #### C BC #### [address] [address] MCHC (RBC) [Mass/Vol] 33.3 % Normal 31.0-37.0 [facility] Comment on above: Performed By: #### C BC #### [address] [address] MCV (RBC) [Entitic vol] 84.1 fL Normal 80.0-100.0 [facility] Comment on above: Performed By: #### C BC #### [address] [address] Platelet mean volume (Bld) [Entitic vol] 9.2 fL Normal 6.7-10.6 [facility] Comment on above: Performed By: #### C BC #### [address] [address] Platelets (Bld) [#/Vol] 150 x10*3/mcL Normal 150-350 [facility] Comment on above: Performed By: #### C BC #### [address] [address] RBC (Bld) [#/Vol] 3.64 x10*6/mcL Low 3.80-5.20 [facility] Comment on above: Performed By: #### C BC #### [address] [address] WBC (Bld) [#/Vol] 17.0 x10*3/mcL High 4.5-11.0 [facility] Comment on above: Performed By: #### C BC #### [address] [address] Diff Autoon 01-25-2019 Baso Absolute 0.0 x10*3/mcL Normal 0.0-0.2 [facility] Comment on above: Performed By: #### . Automated Diff #### [address] [address] Basophils/100 WBC (Bld) 0.0 % Normal 0.0-1.5 [facility] Comment on above: Performed By: #### . Automated Diff #### [address] [address] Eos Absolute 0.0 x10*3/mcL Normal 0.0-0.4 [facility] Comment on above: Performed By: #### . Automated Diff #### [address] [address] Eosinophils/100 WBC (Bld) 0.1 % Normal 0.0-5.4 [facility] Comment on above: Performed By: #### . Automated Diff #### [address] [address] Lymphocytes (Bld) [#/Vol] 1.6 x10*3/mcL Normal 1.2-5.2 [facility] Comment on above: Performed By: #### . Automated Diff #### [address] [address] Lymphocytes/100 WBC (Bld) 9.5 % Low 28.0-42.0 [facility] Comment on above: Performed By: #### . Automated Diff #### [address] [address] [place] Absolute 1.5 x10*3/mcL High 0.1-1.1 [facility] Comment on above: Performed By: #### . Automated Diff #### [address] [address] Monocytes/100 WBC (Bld) 9.0 % Normal 3.7-11.9 [facility] Comment on above: Performed By: #### . Automated Diff #### [address] [address] Neutro Absolute 13.8 x10*3/mcL High 1.8-8.0 [facility] Comment on above: Performed By: #### . Automated Diff #### [address] [address] Neutro Auto 81.4 % High 45.6-68.4 [facility] Comment on above: Performed By: #### . Automated Diff #### [facility] [address] [place] [address] Obstetrics Progress Noteon 1 03-27-2018 Obstetrics Progress Note Patient: Iesha Thomas Age: 18 years Sex: Female : 2000 Associated Diagnoses: None Author: Molly Neal CNM Basic Information Gestational Age: Gestational Age (EGA) and MASOOD * Note: EGA calculated as of 01/25/2019 MASOOD: 01/23/2019 EGA*: 40 weeks 2 days Type: Final Method Date: 06/14/2018 Method: Last Menstrual Period (06/14/2018) Confirmation: Confirmed Description: -- Comments: -- Entered by: La Cassidy on 01/24/2019 Other MASOOD Calculations for this : No additional MASOOD calculations have been recorded for this . Review of Systems No change in system findings from previous examination Health Status Problem list: Problems (Active Problems Only) (SNOMED CT: [id number], Onset: 06/14/18) Physical Examination VS/Measurements Vital Signs (last 24 hrs) Last Charted Resp Rate 16 br/min (JAN 25 13:00) SBP 115 mmHg (JAN 25 19:45) DBP 69 mmHg (JAN 25 19:45) SpO2 98 % (JAN 25 19:45) General: Alert and oriented. Eye: Pupils are equal, round and reactive to light. Respiratory: Respirations are non-labored. Cardiovascular: Normal rate. Gastrointestinal: Soft. OB Results Review Reviewed Results: Contraction Monitoring Obstetric Exam Uterus: consistent with gestational age. [place]/ Baby A evaluation: movement present, heart tones (within normal limits (110 to 160 bpm), rate and rhythm regular, variability (moderate (6-25 bpm over baseline), Had period of moderate to marked variability in the midst of 15 minute deceleration), decelerations (prolonged (decrease lasts 2 to 10 min), Had prolonged deceleration which started at 1957 and lasted approximately 15 minutes)), assessment of heart tracing reassuring heart rate, presentation/ presenting part vertex. Cervix: dilated 5.5 cm, 90 % effaced, station/ evidence of descent Caput at 0 station, head is -1 station. , membrane status ruptured, amniotic fluid meconium. Musculoskeletal Normal range of motion. Integumentary: Warm, Dry, [place]. Neurologic: Alert, Oriented. Psychiatric: Cooperative. Review / Management OB Results Review MASOOD/ EGA: 01/24/2019 13:11 EST 1 Current 01/25/2019 19:57 EST Monitoring Annotations Plan of care being discussed. 01/25/2019 19:56 EST Monitoring Annotations SVE per B. Val CNM. 01/25/2019 19:54 EST Monitoring Annotations B. Val CNM at bedside. 01/25/2019 19:05 EST Monitoring Annotations Pitocin shut off. 01/25/2019 19:00 EST Cervix Dilation 6 cm Cervix Effacement 100 Station 0 Station Calculation 0 Cervical Consistency Soft Cervical Position Anterior Rao's Score 12 Presenting Part Vertex Vaginal Exam Performed By Paula Aden Labor 01/25/2019 19:57 EST Monitoring Annotations Plan of care being discussed. 01/25/2019 19:56 EST Monitoring Annotations SVE per B. Val CNM. 01/25/2019 19:54 EST Monitoring Annotations B. Val CNM at bedside. 01/25/2019 19:05 EST Monitoring Annotations Pitocin shut off. 01/25/2019 19:00 EST Cervix Dilation 6 cm Cervix Effacement 100 Station 0 Station Calculation 0 Cervical Consistency Soft Cervical Position Anterior Rao's Score 12 Presenting Part Vertex Vaginal Exam Performed By Paula Aden Impression and Plan condition: Reassuring heart rate. Maternal condition: Stable. Plan . Was notified at 191 by RN that infant had prolonged deceleration with moderate variability and periods of marked variability in the midst. After deceleration - heart tones were returning to baseline with 3 recurrent early decelerations. Oxygen was applied, Pitocin was turned off per RN. I let RN know that I would come evaluate patient. I arrived at bedside to evaluate at 1949. SVE was performed and we discussed caput present, tracing with deceleration, and concern for CPD and OP presentation. Patient was agreeable for c/s at this time. Team - anesthesia, Dr Grace, and surgical orderly were notified by loading unit tool setter at 2007 for a planned 2044 c/s. Consents were obtained. Electronically signed by Val MERCHANTMolly Pan Kyleigh 01/25/19 20:35 EST Normal [facility] Obstetrics Progress Note Patient: Iesha Thomas Age: 18 years Sex: Female : 2000 Associated Diagnoses: None Author: Molly Neal CNM Basic Information Gestational Age: Gestational Age (EGA) and MASOOD * Note: EGA calculated as of 01/25/2019 MASOOD: 01/23/2019 EGA*: 40 weeks 2 days Type: Final Method Date: 06/14/2018 Method: Last Menstrual Period (06/14/2018) Confirmation: Confirmed Description: -- Comments: -- Entered by: La Cassidy on 01/24/2019 Other MASOOD Calculations for this : No additional MASOOD calculations have been recorded for this . Review of Systems Constitutional: Negative. Eye: Negative. Ear/Nose/Mouth/Throat: Negative. Respiratory: Negative. Cardiovascular: Negative. Breast: Negative. Gastrointestinal: Negative. Genitourinary: Negative, Morrow catheter in place. Gynecologic: Negative. Hematology/Lymphatics: Negative. Endocrine/Renal: Negative. Immunologic: Negative. Musculoskeletal: Negative. Integumentary: Negative. Neurologic: Negative. Psychiatric: Negative. Health Status Problem list: Problems (Active Problems Only) [id number], Onset: 06/14/18) Physical Examination VS/Measurements Vital Signs (last 24 hrs) Last Charted Resp Rate 16 br/min (JAN 25 13:00) SBP 119 mmHg (JAN 25 15:45) DBP 82 mmHg (JAN 25 15:45) SpO2 96 % (JAN 25 14:15) General: Alert and oriented. Respiratory: Respirations are non-labored. Cardiovascular: Normal rate. Gastrointestinal: Soft. Genitourinary: Morrow catheter in place - patent/draining. Obstetric Exam Contractions noted: regular pattern, moderate in quality. Uterus: consistent with gestational age. [place]/ Baby A evaluation: movement present, heart tones (within normal limits (110 to 160 bpm), rate and rhythm regular, variability moderate (6-25 bpm over baseline), acceleration pattern present - greater than 15 bpm over baseline for 15 seconds but less than 2 minutes, decelerations (prolonged (decrease lasts 2 to 10 min), 2 minute deceleration at 1627 which recovered with maternal repositioning)), assessment of heart tracing reassuring heart rate, presentation/ presenting part vertex. Cervix: dilated 4 cm, 90 % effaced, station/ evidence of descent -1, membrane status ruptured, amniotic fluid (meconium, leaking). Integumentary: Warm, Dry, [place]. Neurologic: Alert, Oriented. Psychiatric: Cooperative. Review / Management OB Results Review MASOOD/ EGA: 01/24/2019 13:11 EST 1 Current 01/25/2019 15:45 EST Uterine Contraction Frequency 2-3 Uterine Contraction Duration 50-60 Uterine Contraction Description Moderate A FHR Baseline: 130 bpm FHR Baseline Description: Normal, 110-160 bpm FHR Baseline Variability: Moderate variability FHR Accelerations: Present 01/25/2019 15:33 EST Monitoring Annotations pt positioned to left side with peanut ball in place, 01/25/2019 15:30 EST Uterine Contraction Frequency 2-3 Uterine Contraction Duration 60-80 Uterine Contraction Description Moderate FHR Baseline: 135 bpm FHR Baseline Description: Normal, 110-160 bpm FHR Baseline Variability: Moderate variability 01/25/2019 15:15 EST Uterine Contraction Frequency 2-3 Uterine Contraction Duration 60-80 Uterine Contraction Description Moderate FHR Baseline: 135 bpm FHR Baseline Description: Normal, 110-160 bpm FHR Baseline Variability: Moderate variability FHR Deceleration: Present 01/25/2019 15:00 EST Uterine Contraction Frequency 2-4 Uterine Contraction Duration 60-70 Uterine Contraction Description Moderate FHR Baseline: 130 bpm FHR Baseline Description: Normal, 110-160 bpm FHR Baseline Variability: Moderate variability 01/25/2019 14:57 EST Monitoring Annotations B.Val CNM updated on status of pt, review of strip and SVE 01/25/2019 14:45 EST Uterine Contraction Frequency 2-4 Uterine Contraction Duration 50-70 Uterine Contraction Description Moderate FHR Baseline: 130 bpm FHR Baseline Description: Normal, 110-160 bpm FHR Baseline Variability: Moderate variability Cervix Dilation 4 cm Cervix Effacement 90 Station -1 Station Calculation -1 Cervical Consistency Soft Cervical Position Anterior Rao's Score 11 Presenting Part Vertex Vaginal Exam Performed By Tiffany Quevedo 01/25/2019 14:30 EST Uterine Contraction Frequency 2-4 Uterine Contraction Duration 40-60 Uterine Contraction Description Moderate FHR Baseline: 130 bpm FHR Baseline Description: Normal, 110-160 bpm FHR Baseline Variability: Moderate variability FHR Accelerations: Present 01/25/2019 14:15 EST Uterine Contraction Frequency 2 Uterine Contraction Duration 50-60 Uterine Contraction Description Moderate FHR Baseline: 130 bpm FHR Baseline Description: Normal, 110-160 bpm FHR Baseline Variability: Moderate variability FHR Accelerations: Present 01/25/2019 14:00 EST Uterine Contraction Frequency 2-3 Uterine Contraction Duration 50-60 Uterine Contraction Description Moderate FHR Baseline: 125 bpm FHR Baseline Description: Normal, 110-160 bpm FHR Baseline Variability: Moderate variability FHR Accelerations: Present 01/25/2019 13:51 EST Monitoring Annotations Dom SENIOR TECHNICAL RECRUITER at bedside discussing epidural and obtaining consent. 01/25/2019 13:45 EST Uterine Contraction Frequency 2 Uterine Contraction Duration 60-70 Uterine Contraction Description Moderate FHR Baseline: 130 bpm FHR Baseline Description: Normal, 110-160 bpm FHR Baseline Variability: Moderate variability FHR Accelerations: Present 01/25/2019 13:37 EST Monitoring Annotations pt requesting epidural 01/25/2019 13:30 EST Uterine Contraction Frequency 2-3 Uterine Contraction Duration 60-70 Uterine Contraction Description Moderate FHR Baseline: 135 bpm FHR Baseline Description: Normal, 110-160 bpm FHR Baseline Variability: Moderate variability 01/25/2019 13:15 EST Uterine Contraction Frequency 2-3 Uterine Contraction Duration 60-70 Uterine Contraction Description Moderate FHR Baseline: 135 bpm FHR Baseline Description: Normal, 110-160 bpm FHR Baseline Variability: Moderate variability 01/25/2019 13:00 EST Uterine Contraction Frequency 2-5 Uterine Contraction Duration 50-60 Uterine Contraction Description Mild FHR Baseline: 135 bpm FHR Baseline Description: Normal, 110-160 bpm FHR Baseline Variability: Moderate variability Cervix Dilation 4 cm Cervix Effacement 90 Station -2 Station Calculation -2 Cervical Consistency Soft Vaginal Exam Performed By Tiffany Quevedo 01/25/2019 12:45 EST Uterine Contraction Frequency 2-3 Uterine Contraction Duration 50-70 Uterine Contraction Description Mild 01/25/2019 12:30 EST Uterine Contraction Frequency 2-3 Uterine Contraction Duration 50-60 Uterine Contraction Description Mild FHR Baseline: 140 bpm 01/25/2019 12:15 EST Uterine Contraction Frequency 2-3 Uterine Contraction Duration 50-70 Uterine Contraction Description Mild FHR Monitoring Method: External wireless FHR Baseline: 145 bpm FHR Baseline Description: Normal, 110-160 bpm FHR Baseline Variability: Moderate variability 01/25/2019 12:00 EST Uterine Contraction Frequency 2-3 Uterine Contraction Duration 60-70 Uterine Contraction Description Mild FHR Monitoring Method: External wireless FHR Baseline: 135 bpm FHR Baseline Description: Normal, 110-160 bpm FHR Baseline Variability: Moderate variability FHR Accelerations: Present 01/25/2019 11:45 EST Uterine Contraction Frequency 2-5 Uterine Contraction Duration 60-70 Uterine Contraction Description Mild FHR Monitoring Method: External wireless FHR Baseline: 135 bpm FHR Baseline Description: Normal, 110-160 bpm FHR Baseline Variability: Moderate variability 01/25/2019 11:30 EST Uterine Contraction Monitoring Method External toco Uterine Contraction Description Uterine irritability, Occasional contractions FHR Monitoring Method: External wireless FHR Baseline: 135 bpm FHR Baseline Description: Normal, 110-160 bpm FHR Baseline Variability: Moderate variability FHR Accelerations: Present 01/25/2019 11:15 EST Uterine Contraction Monitoring Method External toco Uterine Contraction Description Uterine irritability, Occasional contractions FHR Monitoring Method: External wireless FHR Baseline Description: Normal, 110-160 bpm FHR Baseline Variability: Moderate variability FHR Accelerations: Present FHR: 135 bpm 01/25/2019 11:04 EST Monitoring Annotations noneffective IFM and removal per RN 01/25/2019 11:00 EST Uterine Contraction Monitoring Method External toco Uterine Contraction Description Uterine irritability, Occasional contractions FHR Monitoring Method: External wireless FHR Baseline: 130 bpm FHR Baseline Description: Normal, 110-160 bpm FHR Baseline Variability: Moderate variability Cervix Dilation 3 cm Cervix Effacement 90 Station -2 Station Calculation -2 Cervical Consistency Soft Cervical Position Mid Rao's Score 9 Presenting Part Vertex Vaginal Exam Performed By Tiffany Quevedo 01/25/2019 10:58 EST Monitoring Annotations SVE and attempt at placement of IFM 01/25/2019 10:45 EST Uterine Contraction Monitoring Method External toco Uterine Contraction Description Uterine irritability, Occasional contractions FHR Monitoring Method: External wireless FHR Baseline Description: Normal, 110-160 bpm FHR Baseline Variability: Moderate variability FHR: 120 bpm 01/25/2019 10:30 EST Uterine Contraction Monitoring Method External toco Uterine Contraction Description Uterine irritability, Occasional contractions FHR Monitoring Method: External wireless FHR Baseline: 135 bpm FHR Baseline Description: Normal, 110-160 bpm FHR Baseline Variability: Moderate variability FHR Accelerations: Present 01/25/2019 10:15 EST Uterine Contraction Monitoring Method External toco Uterine Contraction Description Uterine irritability, Occasional contractions FHR Monitoring Method: External wireless FHR Baseline: 140 bpm FHR Baseline Description: Normal, 110-160 bpm FHR Baseline Variability: Moderate variability FHR Accelerations: Present 01/25/2019 10:02 EST Cervix Dilation 1.5 Cervix Effacement 90 Station -2 01/25/2019 10:00 EST Monitoring Annotations BNieves WAGONER at bedside for review of strip, SVE and AROM 01/25/2019 10:00 EST Uterine Contraction Monitoring Method External toco Uterine Contraction Description Uterine irritability, Occasional contractions FHR Monitoring Method: External wireless FHR Baseline: 135 bpm FHR Baseline Description: Normal, 110-160 bpm FHR Baseline Variability: Moderate variability FHR Accelerations: Present ROM Date, Time: 01/25/2019 10:00 Membrane Status: Artificial rupture of membranes ROM Performed By: Molly Neal CNM ROM Confirmed By: Visual pool Amniotic Fluid Amount: Small Amniotic Fluid Color/Description: Thin meconium Amniotic Fluid Odor: None Cervix Dilation 2 cm Cervix Effacement 90 Station -2 Station Calculation -2 Cervical Consistency Soft Presenting Part Vertex Vaginal Exam Performed By Molly Neal CNM (Modified) 01/25/2019 9:45 EST Uterine Contraction Monitoring Method External toco Uterine Contraction Description Uterine irritability, Occasional contractions FHR Monitoring Method: External wireless FHR Baseline: 130 bpm FHR Baseline Description: Normal, 110-160 bpm FHR Baseline Variability: Moderate variability FHR Accelerations: Present 01/25/2019 9:30 EST Uterine Contraction Monitoring Method External toco Uterine Contraction Description Uterine irritability, Occasional contractions FHR Baseline: 125 bpm FHR Baseline Description: Normal, 110-160 bpm FHR Baseline Variability: Moderate variability FHR Accelerations: Present 01/25/2019 9:15 EST Uterine Contraction Monitoring Method External toco Uterine Contraction Description Uterine irritability, Occasional contractions FHR Monitoring Method: Doppler ultrasound FHR Monitoring Frequency: Continuous FHR Baseline: 125 bpm FHR Baseline Description: Normal, 110-160 bpm FHR Baseline Variability: Moderate variability FHR Accelerations: Present 01/25/2019 9:00 EST Uterine Contraction Monitoring Method External toco Uterine Contraction Description Uterine irritability, Occasional contractions FHR Monitoring Method: Doppler ultrasound FHR Monitoring Frequency: Continuous FHR Baseline: 130 bpm FHR Baseline Description: Normal, 110-160 bpm FHR Baseline Variability: Moderate variability FHR Accelerations: Present 01/25/2019 8:45 EST Uterine Contraction Monitoring Method External toco Uterine Contraction Description Uterine irritability, Occasional contractions FHR Monitoring Method: Doppler ultrasound FHR Monitoring Frequency: Continuous FHR Baseline: 130 bpm FHR Baseline Description: Normal, 110-160 bpm FHR Baseline Variability: Moderate variability FHR Accelerations: Present 01/25/2019 8:30 EST Uterine Contraction Monitoring Method External toco Uterine Contraction Description Uterine irritability, Occasional contractions FHR Monitoring Method: Doppler ultrasound FHR Monitoring Frequency: Continuous FHR Baseline: 135 bpm FHR Baseline Description: Normal, 110-160 bpm FHR Baseline Variability: Moderate variability 01/25/2019 8:15 EST Uterine Contraction Monitoring Method External toco Uterine Contraction Description Uterine irritability, Occasional contractions FHR Monitoring Method: Doppler ultrasound FHR Monitoring Frequency: Continuous FHR Baseline: 130 bpm FHR Baseline Description: Normal, 110-160 bpm FHR Baseline Variability: Moderate variability FHR Accelerations: Present 01/25/2019 8:12 EST Monitoring Annotations novi monitor placed 01/25/2019 8:00 EST Uterine Contraction Monitoring Method External toco Uterine Contraction Description Uterine irritability, Occasional contractions FHR Monitoring Method: Doppler ultrasound FHR Monitoring Frequency: Continuous FHR Baseline: 130 bpm FHR Baseline Description: Normal, 110-160 bpm FHR Baseline Variability: Moderate variability 01/25/2019 7:45 EST Monitoring Annotations pt sitting in rocking chair, novi placed Monitoring Annotations In Error (In Error) 01/25/2019 7:45 EST Uterine Contraction Monitoring Method External toco Uterine Contraction Description Uterine irritability, Occasional contractions FHR Monitoring Method: Doppler ultrasound FHR Monitoring Frequency: Continuous FHR Baseline: 140 bpm FHR Baseline Description: Normal, 110-160 bpm FHR Baseline Variability: Moderate variability 01/25/2019 7:17 EST Monitoring Annotations pt up to bathroom 01/25/2019 7:15 EST Uterine Contraction Monitoring Method External toco Uterine Contraction Description Uterine irritability, Occasional contractions FHR Monitoring Method: Doppler ultrasound FHR Monitoring Frequency: Continuous FHR Baseline: 130 bpm FHR Baseline Description: Normal, 110-160 bpm FHR Baseline Variability: Moderate variability FHR Accelerations: Present 01/25/2019 7:13 EST Monitoring Annotations pt sitting high fowlers 01/25/2019 7:00 EST Uterine Contraction Monitoring Method External toco Uterine Contraction Description Uterine irritability, Occasional contractions FHR Monitoring Method: Doppler ultrasound FHR Monitoring Frequency: Continuous FHR Baseline: 130 bpm FHR Baseline Description: Normal, 110-160 bpm FHR Baseline Variability: Moderate variability 01/25/2019 6:58 EST Monitoring Annotations pt returned to bed. 01/25/2019 6:50 EST Monitoring Annotations pt up to bathroom 01/25/2019 6:45 EST Uterine Contraction Monitoring Method External toco Uterine Contraction Description Uterine irritability, Occasional contractions FHR Monitoring Method: Doppler ultrasound FHR Monitoring Frequency: Continuous FHR Baseline: 135 bpm FHR Baseline Description: Normal, 110-160 bpm FHR Baseline Variability: Moderate variability 01/25/2019 6:30 EST Uterine Contraction Monitoring Method External toco Uterine Contraction Description Uterine irritability, Occasional contractions FHR Monitoring Method: Doppler ultrasound FHR Monitoring Method: Doppler ultrasound FHR Monitoring Frequency: Continuous FHR Monitoring Frequency: Continuous FHR Baseline: 130 bpm FHR Baseline Description: Normal, 110-160 bpm FHR Baseline Description: Normal, 110-160 bpm FHR Baseline Variability: Moderate variability FHR Baseline Variability: Moderate variability FHR Accelerations: Present 01/25/2019 6:15 EST Uterine Contraction Monitoring Method External toco Uterine Contraction Description Uterine irritability, Occasional contractions FHR Monitoring Method: Doppler ultrasound FHR Monitoring Method: Doppler ultrasound FHR Monitoring Frequency: Continuous FHR Monitoring Frequency: Continuous FHR Baseline: 130 bpm FHR Baseline Description: Normal, 110-160 bpm FHR Baseline Description: Normal, 110-160 bpm FHR Baseline Variability: Moderate variability FHR Baseline Variability: Moderate variability 01/25/2019 6:00 EST Uterine Contraction Monitoring Method External toco Uterine Contraction Description Uterine irritability, Occasional contractions FHR Monitoring Method: Doppler ultrasound FHR Monitoring Method: Doppler ultrasound FHR Monitoring Frequency: Continuous FHR Monitoring Frequency: Continuous FHR Baseline: 120 bpm FHR Baseline Description: Normal, 110-160 bpm FHR Baseline Description: Normal, 110-160 bpm FHR Baseline Variability: Moderate variability FHR Baseline Variability: Moderate variability 01/25/2019 5:45 EST Uterine Contraction Monitoring Method External toco Uterine Contraction Description Occasional contractions FHR Monitoring Method: Doppler ultrasound FHR Monitoring Frequency: Continuous FHR Baseline: 125 bpm FHR Baseline Description: Normal, 110-160 bpm FHR Baseline Variability: Moderate variability 01/25/2019 5:30 EST Uterine Contraction Monitoring Method External toco Uterine Contraction Description Occasional contractions FHR Monitoring Method: Doppler ultrasound FHR Monitoring Frequency: Continuous FHR Baseline: 125 bpm FHR Baseline Description: Normal, 110-160 bpm FHR Baseline Variability: Moderate variability 01/25/2019 5:15 EST Uterine Contraction Monitoring Method External toco Uterine Contraction Description Occasional contractions FHR Monitoring Method: Doppler ultrasound FHR Monitoring Frequency: Continuous FHR Baseline: 130 bpm FHR Baseline Description: Normal, 110-160 bpm FHR Baseline Variability: Moderate variability 01/25/2019 5:00 EST Uterine Contraction Monitoring Method External toco Uterine Contraction Description Occasional contractions FHR Monitoring Method: Doppler ultrasound FHR Monitoring Frequency: Continuous FHR Baseline Description: Normal, 110-160 bpm FHR Baseline Variability: Moderate variability FHR: 130 bpm 01/25/2019 4:51 EST Monitoring Annotations EFM readjusted 01/25/2019 4:32 EST Monitoring Annotations oxytocin infusion increased 01/25/2019 4:31 EST Monitoring Annotations pt returned to bed 01/25/2019 4:30 EST Uterine Contraction Monitoring Method External toco Uterine Contraction Description Mild, Occasional contractions FHR Monitoring Method: Doppler ultrasound FHR Monitoring Frequency: Continuous FHR Baseline: 125 bpm FHR Baseline Description: Normal, 110-160 bpm FHR Baseline Variability: Moderate variability FHR Accelerations: Present 01/25/2019 4:28 EST Monitoring Annotations pt up to bathroom 01/25/2019 4:15 EST Uterine Contraction Monitoring Method External toco Uterine Contraction Description Mild, Occasional contractions FHR Monitoring Method: Doppler ultrasound FHR Monitoring Frequency: Continuous FHR Baseline: 125 bpm FHR Baseline Description: Normal, 110-160 bpm FHR Baseline Variability: Moderate variability FHR Accelerations: Present 01/25/2019 4:00 EST Uterine Contraction Monitoring Method External toco Uterine Contraction Description Mild, Occasional contractions FHR Monitoring Method: Doppler ultrasound FHR Monitoring Frequency: Continuous FHR Baseline: 125 bpm FHR Baseline Description: Normal, 110-160 bpm FHR Baseline Variability: Moderate variability FHR Accelerations: Present 01/25/2019 3:45 EST Uterine Contraction Monitoring Method External toco Uterine Contraction Frequency 2-4 Uterine Contraction Duration 50-70 Uterine Contraction Description Mild FHR Monitoring Method: Doppler ultrasound FHR Monitoring Frequency: Continuous FHR Baseline: 125 bpm FHR Baseline Description: Normal, 110-160 bpm FHR Baseline Variability: Moderate variability FHR Accelerations: Present 01/25/2019 3:30 EST Uterine Contraction Monitoring Method External toco Uterine Contraction Description Mild, Occasional contractions FHR Monitoring Method: Doppler ultrasound FHR Monitoring Frequency: Continuous FHR Baseline: 135 bpm FHR Baseline Description: Normal, 110-160 bpm FHR Baseline Variability: Moderate variability FHR Accelerations: Present 01/25/2019 3:15 EST Uterine Contraction Monitoring Method External toco Uterine Contraction Description Uterine irritability, Occasional contractions 01/25/2019 3:00 EST Uterine Contraction Monitoring Method External toco Uterine Contraction Description Uterine irritability 01/25/2019 2:45 EST Uterine Contraction Monitoring Method External toco Uterine Contraction Frequency 2-3 Uterine Contraction Duration 60-120 Uterine Contraction Description Mild FHR Monitoring Method: Doppler ultrasound FHR Monitoring Frequency: Continuous FHR Baseline: 130 bpm FHR Baseline Description: Normal, 110-160 bpm FHR Baseline Variability: Moderate variability FHR Accelerations: Present 01/25/2019 2:30 EST Uterine Contraction Monitoring Method External toco Uterine Contraction Description Uterine irritability FHR Monitoring Method: Doppler ultrasound FHR Monitoring Frequency: Continuous FHR Baseline: 130 bpm FHR Baseline Description: Normal, 110-160 bpm FHR Baseline Variability: Moderate variability FHR Accelerations: Present 01/25/2019 2:15 EST Uterine Contraction Monitoring Method External toco Uterine Contraction Description Uterine irritability FHR Monitoring Method: Doppler ultrasound FHR Monitoring Frequency: Continuous FHR Baseline: 130 bpm FHR Baseline Description: Normal, 110-160 bpm FHR Baseline Variability: Moderate variability FHR Accelerations: Present 01/25/2019 2:00 EST Uterine Contraction Monitoring Method External toco Uterine Contraction Description Uterine irritability FHR Monitoring Method: Doppler ultrasound FHR Monitoring Frequency: Continuous FHR Baseline: 150 bpm FHR Baseline Description: Normal, 110-160 bpm FHR Baseline Variability: Moderate variability 01/25/2019 1:00 EST Provider Contacted Via Personal communication via phone Provider Response Other: pt may eat and shower; start oxytocin infusion in 1 hour OB Notification Reason Dilation Uterine Contraction Monitoring Method External toco Uterine Contraction Description Uterine irritability FHR Monitoring Method: Doppler ultrasound FHR Monitoring Frequency: Continuous FHR Baseline: 110 bpm FHR Baseline Description: Normal, 110-160 bpm FHR Baseline Variability: Moderate variability 01/25/2019 0:56 EST Monitoring Annotations SVE; Cervidil removed 01/25/2019 0:56 EST Cervix Dilation 1 cm Cervix Effacement 90 Station -2 Station Calculation -2 Cervical Consistency Soft Cervical Position Anterior Rao's Score 9 01/25/2019 0:52 EST Monitoring Annotations pt returned to bed 01/25/2019 0:49 EST Monitoring Annotations pt up to bathroom 01/25/2019 0:45 EST Uterine Contraction Monitoring Method External toco Uterine Contraction Description Uterine irritability FHR Monitoring Method: Doppler ultrasound FHR Monitoring Frequency: Continuous FHR Baseline: 110 bpm FHR Baseline Description: Normal, 110-160 bpm FHR Baseline Variability: Moderate variability FHR Accelerations: Present 01/25/2019 0:44 EST Monitoring Annotations RN evaluation of strip 01/25/2019 0:30 EST Monitoring Annotations RN evaluation of strip 01/25/2019 0:30 EST Uterine Contraction Monitoring Method External toco Uterine Contraction Description Uterine irritability FHR Monitoring Method: Doppler ultrasound FHR Monitoring Frequency: Continuous FHR Baseline: 110 bpm FHR Baseline Description: Normal, 110-160 bpm FHR Baseline Variability: Moderate variability 01/25/2019 0:15 EST Uterine Contraction Monitoring Method External toco Uterine Contraction Description None FHR Monitoring Method: Doppler ultrasound FHR Monitoring Frequency: Continuous FHR Baseline: 110 bpm FHR Baseline Description: Normal, 110-160 bpm FHR Baseline Variability: Moderate variability FHR Accelerations: Present 01/25/2019 0:00 EST Uterine Contraction Monitoring Method External toco Uterine Contraction Description None FHR Monitoring Method: Doppler ultrasound FHR Monitoring Frequency: Continuous FHR Baseline: 110 bpm FHR Baseline Description: Normal, 110-160 bpm FHR Baseline Variability: Moderate variability FHR Accelerations: Present 01/24/2019 23:45 EST Uterine Contraction Monitoring Method External toco Uterine Contraction Description Uterine irritability FHR Monitoring Method: Doppler ultrasound FHR Monitoring Frequency: Continuous FHR Baseline: 115 bpm FHR Baseline Description: Normal, 110-160 bpm FHR Baseline Variability: Moderate variability FHR Accelerations: Present 01/24/2019 23:30 EST Uterine Contraction Monitoring Method External toco Uterine Contraction Description Uterine irritability FHR Monitoring Method: Doppler ultrasound FHR Monitoring Frequency: Continuous FHR Baseline: 110 bpm FHR Baseline Description: Normal, 110-160 bpm FHR Baseline Variability: Moderate variability 01/24/2019 23:15 EST Uterine Contraction Monitoring Method External toco Uterine Contraction Description Occasional contractions FHR Monitoring Method: Doppler ultrasound FHR Monitoring Frequency: Continuous FHR Baseline: 110 bpm FHR Baseline Description: Normal, 110-160 bpm FHR Baseline Variability: Moderate variability FHR Accelerations: Present 01/24/2019 23:00 EST Uterine Contraction Monitoring Method External toco Uterine Contraction Description Uterine irritability FHR Monitoring Method: Doppler ultrasound FHR Monitoring Frequency: Continuous FHR Baseline: 110 bpm FHR Baseline Description: Normal, 110-160 bpm FHR Baseline Variability: Moderate variability 01/24/2019 22:45 EST Uterine Contraction Monitoring Method External toco Uterine Contraction Description Uterine irritability FHR Monitoring Method: Doppler ultrasound FHR Monitoring Frequency: Continuous FHR Baseline: 115 bpm FHR Baseline Description: Normal, 110-160 bpm FHR Baseline Variability: Moderate variability FHR Accelerations: Present 01/24/2019 22:30 EST Uterine Contraction Monitoring Method External toco Uterine Contraction Description Uterine irritability, Occasional contractions FHR Monitoring Method: Doppler ultrasound FHR Monitoring Frequency: Continuous FHR Baseline: 115 bpm FHR Baseline Description: Normal, 110-160 bpm FHR Baseline Variability: Moderate variability FHR Accelerations: Present 01/24/2019 22:15 EST Uterine Contraction Monitoring Method External toco Uterine Contraction Description Uterine irritability FHR Monitoring Method: Doppler ultrasound FHR Monitoring Frequency: Continuous FHR Baseline: 115 bpm FHR Baseline Description: Normal, 110-160 bpm FHR Baseline Variability: Moderate variability FHR Accelerations: Present 01/24/2019 22:00 EST Uterine Contraction Monitoring Method External toco Uterine Contraction Description Uterine irritability, Occasional contractions FHR Monitoring Method: Doppler ultrasound FHR Monitoring Frequency: Continuous FHR Baseline: 115 bpm FHR Baseline Description: Normal, 110-160 bpm FHR Baseline Variability: Moderate variability FHR Accelerations: Present 01/24/2019 21:49 EST Monitoring Annotations pt standing at bedside 01/24/2019 21:45 EST Uterine Contraction Monitoring Method External toco Uterine Contraction Description Uterine irritability FHR Monitoring Method: Doppler ultrasound FHR Monitoring Frequency: Continuous FHR Baseline: 115 bpm FHR Baseline Description: Normal, 110-160 bpm FHR Baseline Variability: Moderate variability FHR Accelerations: Present 01/24/2019 21:30 EST Uterine Contraction Monitoring Method External toco Uterine Contraction Description Uterine irritability FHR Monitoring Method: Doppler ultrasound FHR Monitoring Frequency: Continuous FHR Baseline: 110 bpm FHR Baseline Description: Normal, 110-160 bpm FHR Baseline Variability: Moderate variability FHR Accelerations: Present 01/24/2019 21:15 EST Uterine Contraction Monitoring Method External toco Uterine Contraction Description Uterine irritability FHR Monitoring Method: Doppler ultrasound FHR Monitoring Frequency: Continuous FHR Baseline: 110 bpm FHR Baseline Description: Normal, 110-160 bpm FHR Baseline Variability: Moderate variability FHR Accelerations: Present 01/24/2019 21:00 EST Uterine Contraction Monitoring Method External toco Uterine Contraction Description Uterine irritability FHR Monitoring Method: Doppler ultrasound FHR Monitoring Frequency: Continuous FHR Baseline: 120 bpm FHR Baseline Description: Normal, 110-160 bpm FHR Baseline Variability: Moderate variability FHR Accelerations: Present 01/24/2019 20:45 EST Uterine Contraction Monitoring Method External toco Uterine Contraction Description Uterine irritability FHR Monitoring Method: Doppler ultrasound FHR Monitoring Frequency: Continuous FHR Baseline: 125 bpm FHR Reactive: Yes FHR Baseline Description: Normal, 110-160 bpm FHR Baseline Variability: Moderate variability FHR Accelerations: Present FHR Acceleration Description: Abrupt FHR Deceleration: Absent 01/24/2019 20:30 EST Uterine Contraction Monitoring Method External toco Uterine Contraction Description Uterine irritability, Occasional contractions FHR Monitoring Method: Doppler ultrasound FHR Monitoring Frequency: Continuous FHR Baseline: 125 bpm FHR Reactive: Yes FHR Baseline Description: Normal, 110-160 bpm FHR Baseline Variability: Moderate variability FHR Accelerations: Present FHR Acceleration Description: Abrupt FHR Deceleration: Absent 01/24/2019 20:15 EST Uterine Contraction Monitoring Method External toco Uterine Contraction Description None FHR Monitoring Method: Doppler ultrasound FHR Monitoring Frequency: Continuous FHR Baseline: 125 bpm FHR Reactive: Yes FHR Baseline Description: Normal, 110-160 bpm FHR Baseline Variability: Moderate variability FHR Accelerations: Present FHR Acceleration Description: Abrupt FHR Deceleration: Absent 01/24/2019 20:00 EST Uterine Contraction Monitoring Method External toco Uterine Contraction Description None FHR Monitoring Method: Doppler ultrasound FHR Monitoring Frequency: Continuous FHR Baseline: 125 bpm FHR Reactive: Yes FHR Baseline Description: Normal, 110-160 bpm FHR Baseline Variability: Moderate variability FHR Accelerations: Present FHR Acceleration Description: Abrupt FHR Deceleration: Absent 01/24/2019 19:45 EST A FHR Monitoring Method: Doppler ultrasound FHR Monitoring Frequency: Continuous FHR: 135 bpm 01/24/2019 19:30 EST Uterine Contraction Monitoring Method External toco Uterine Contraction Description Uterine irritability FHR Monitoring Method: Doppler ultrasound FHR Monitoring Frequency: Continuous FHR: 135 bpm 01/24/2019 19:00 EST Uterine Contraction Monitoring Method External toco Uterine Contraction Description Uterine irritability, Occasional contractions FHR Monitoring Method: Doppler ultrasound FHR Monitoring Frequency: Continuous FHR Baseline: 130 bpm FHR Reactive: Yes FHR Baseline Description: Normal, 110-160 bpm FHR Baseline Variability: Moderate variability Labor 01/25/2019 15:45 EST Uterine Contraction Frequency 2-3 Uterine Contraction Duration 50-60 Uterine Contraction Description Moderate A FHR Baseline: 130 bpm FHR Baseline Description: Normal, 110-160 bpm FHR Baseline Variability: Moderate variability FHR Accelerations: Present 01/25/2019 15:33 EST Monitoring Annotations pt positioned to left side with peanut ball in place, 01/25/2019 15:30 EST Uterine Contraction Frequency 2-3 Uterine Contraction Duration 60-80 Uterine Contraction Description Moderate FHR Baseline: 135 bpm FHR Baseline Description: Normal, 110-160 bpm FHR Baseline Variability: Moderate variability 01/25/2019 15:15 EST Uterine Contraction Frequency 2-3 Uterine Contraction Duration 60-80 Uterine Contraction Description Moderate FHR Baseline: 135 bpm FHR Baseline Description: Normal, 110-160 bpm FHR Baseline Variability: Moderate variability FHR Deceleration: Present 01/25/2019 15:00 EST Uterine Contraction Frequency 2-4 Uterine Contraction Duration 60-70 Uterine Contraction Description Moderate FHR Baseline: 130 bpm FHR Baseline Description: Normal, 110-160 bpm FHR Baseline Variability: Moderate variability 01/25/2019 14:57 EST Monitoring Annotations BRcVal CNM updated on status of pt, review of strip and SVE 01/25/2019 14:45 EST Uterine Contraction Frequency 2-4 Uterine Contraction Duration 50-70 Uterine Contraction Description Moderate FHR Baseline: 130 bpm FHR Baseline Description: Normal, 110-160 bpm FHR Baseline Variability: Moderate variability Cervix Dilation 4 cm Cervix Effacement 90 Station -1 Station Calculation -1 Cervical Consistency Soft Cervical Position Anterior Rao's Score 11 Presenting Part Vertex Vaginal Exam Performed By Tiffany Quevedo 01/25/2019 14:30 EST Uterine Contraction Frequency 2-4 Uterine Contraction Duration 40-60 Uterine Contraction Description Moderate FHR Baseline: 130 bpm FHR Baseline Description: Normal, 110-160 bpm FHR Baseline Variability: Moderate variability FHR Accelerations: Present 01/25/2019 14:15 EST Uterine Contraction Frequency 2 Uterine Contraction Duration 50-60 Uterine Contraction Description Moderate FHR Baseline: 130 bpm FHR Baseline Description: Normal, 110-160 bpm FHR Baseline Variability: Moderate variability FHR Accelerations: Present 01/25/2019 14:00 EST Uterine Contraction Frequency 2-3 Uterine Contraction Duration 50-60 Uterine Contraction Description Moderate FHR Baseline: 125 bpm FHR Baseline Description: Normal, 110-160 bpm FHR Baseline Variability: Moderate variability FHR Accelerations: Present 01/25/2019 13:51 EST Monitoring Annotations Dom BERRY at bedside discussing epidural and obtaining consent. 01/25/2019 13:45 EST Uterine Contraction Frequency 2 Uterine Contraction Duration 60-70 Uterine Contraction Description Moderate FHR Baseline: 130 bpm FHR Baseline Description: Normal, 110-160 bpm FHR Baseline Variability: Moderate variability FHR Accelerations: Present 01/25/2019 13:37 EST Monitoring Annotations pt requesting epidural 01/25/2019 13:30 EST Uterine Contraction Frequency 2-3 Uterine Contraction Duration 60-70 Uterine Contraction Description Moderate FHR Baseline: 135 bpm FHR Baseline Description: Normal, 110-160 bpm FHR Baseline Variability: Moderate variability 01/25/2019 13:15 EST Uterine Contraction Frequency 2-3 Uterine Contraction Duration 60-70 Uterine Contraction Description Moderate FHR Baseline: 135 bpm FHR Baseline Description: Normal, 110-160 bpm FHR Baseline Variability: Moderate variability 01/25/2019 13:00 EST Uterine Contraction Frequency 2-5 Uterine Contraction Duration 50-60 Uterine Contraction Description Mild FHR Baseline: 135 bpm FHR Baseline Description: Normal, 110-160 bpm FHR Baseline Variability: Moderate variability Cervix Dilation 4 cm Cervix Effacement 90 Station -2 Station Calculation -2 Cervical Consistency Soft Vaginal Exam Performed By Tiffany Quevedo 01/25/2019 12:45 EST Uterine Contraction Frequency 2-3 Uterine Contraction Duration 50-70 Uterine Contraction Description Mild 01/25/2019 12:30 EST Uterine Contraction Frequency 2-3 Uterine Contraction Duration 50-60 Uterine Contraction Description Mild FHR Baseline: 140 bpm 01/25/2019 12:15 EST Uterine Contraction Frequency 2-3 Uterine Contraction Duration 50-70 Uterine Contraction Description Mild FHR Monitoring Method: External wireless FHR Baseline: 145 bpm FHR Baseline Description: Normal, 110-160 bpm FHR Baseline Variability: Moderate variability 01/25/2019 12:00 EST Uterine Contraction Frequency 2-3 Uterine Contraction Duration 60-70 Uterine Contraction Description Mild FHR Monitoring Method: External wireless FHR Baseline: 135 bpm FHR Baseline Description: Normal, 110-160 bpm FHR Baseline Variability: Moderate variability FHR Accelerations: Present 01/25/2019 11:45 EST Uterine Contraction Frequency 2-5 Uterine Contraction Duration 60-70 Uterine Contraction Description Mild FHR Monitoring Method: External wireless FHR Baseline: 135 bpm FHR Baseline Description: Normal, 110-160 bpm FHR Baseline Variability: Moderate variability 01/25/2019 11:30 EST Uterine Contraction Monitoring Method External toco Uterine Contraction Description Uterine irritability, Occasional contractions FHR Monitoring Method: External wireless FHR Baseline: 135 bpm FHR Baseline Description: Normal, 110-160 bpm FHR Baseline Variability: Moderate variability FHR Accelerations: Present 01/25/2019 11:15 EST Uterine Contraction Monitoring Method External toco Uterine Contraction Description Uterine irritability, Occasional contractions FHR Monitoring Method: External wireless FHR Baseline Description: Normal, 110-160 bpm FHR Baseline Variability: Moderate variability FHR Accelerations: Present FHR: 135 bpm 01/25/2019 11:04 EST Monitoring Annotations noneffective IFM and removal per RN 01/25/2019 11:00 EST Uterine Contraction Monitoring Method External toco Uterine Contraction Description Uterine irritability, Occasional contractions FHR Monitoring Method: External wireless FHR Baseline: 130 bpm FHR Baseline Description: Normal, 110-160 bpm FHR Baseline Variability: Moderate variability Cervix Dilation 3 cm Cervix Effacement 90 Station -2 Station Calculation -2 Cervical Consistency Soft Cervical Position Mid Rao's Score 9 Presenting Part Vertex Vaginal Exam Performed By Tiffany Quevedo 01/25/2019 10:58 EST Monitoring Annotations SVE and attempt at placement of IFM 01/25/2019 10:45 EST Uterine Contraction Monitoring Method External toco Uterine Contraction Description Uterine irritability, Occasional contractions FHR Monitoring Method: External wireless FHR Baseline Description: Normal, 110-160 bpm FHR Baseline Variability: Moderate variability FHR: 120 bpm 01/25/2019 10:30 EST Uterine Contraction Monitoring Method External toco Uterine Contraction Description Uterine irritability, Occasional contractions FHR Monitoring Method: External wireless FHR Baseline: 135 bpm FHR Baseline Description: Normal, 110-160 bpm FHR Baseline Variability: Moderate variability FHR Accelerations: Present 01/25/2019 10:15 EST Uterine Contraction Monitoring Method External toco Uterine Contraction Description Uterine irritability, Occasional contractions FHR Monitoring Method: External wireless FHR Baseline: 140 bpm FHR Baseline Description: Normal, 110-160 bpm FHR Baseline Variability: Moderate variability FHR Accelerations: Present 01/25/2019 10:02 EST Cervix Dilation 1.5 Cervix Effacement 90 Station -2 01/25/2019 10:00 EST Monitoring Annotations BNieves WAGONER at bedside for review of strip, SVE and AROM 01/25/2019 10:00 EST Uterine Contraction Monitoring Method External toco Uterine Contraction Description Uterine irritability, Occasional contractions FHR Monitoring Method: External wireless FHR Baseline: 135 bpm FHR Baseline Description: Normal, 110-160 bpm FHR Baseline Variability: Moderate variability FHR Accelerations: Present ROM Date, Time: 01/25/2019 10:00 Membrane Status: Artificial rupture of membranes ROM Performed By: Molly Neal CNM ROM Confirmed By: Visual pool Amniotic Fluid Amount: Small Amniotic Fluid Color/Description: Thin meconium Amniotic Fluid Odor: None Cervix Dilation 2 cm Cervix Effacement 90 Station -2 Station Calculation -2 Cervical Consistency Soft Presenting Part Vertex Vaginal Exam Performed By Molly Neal CNM (Modified) 01/25/2019 9:45 EST Uterine Contraction Monitoring Method External toco Uterine Contraction Description Uterine irritability, Occasional contractions FHR Monitoring Method: External wireless FHR Baseline: 130 bpm FHR Baseline Description: Normal, 110-160 bpm FHR Baseline Variability: Moderate variability FHR Accelerations: Present 01/25/2019 9:30 EST Uterine Contraction Monitoring Method External toco Uterine Contraction Description Uterine irritability, Occasional contractions FHR Baseline: 125 bpm FHR Baseline Description: Normal, 110-160 bpm FHR Baseline Variability: Moderate variability FHR Accelerations: Present 01/25/2019 9:15 EST Uterine Contraction Monitoring Method External toco Uterine Contraction Description Uterine irritability, Occasional contractions FHR Monitoring Method: Doppler ultrasound FHR Monitoring Frequency: Continuous FHR Baseline: 125 bpm FHR Baseline Description: Normal, 110-160 bpm FHR Baseline Variability: Moderate variability FHR Accelerations: Present 01/25/2019 9:00 EST Uterine Contraction Monitoring Method External toco Uterine Contraction Description Uterine irritability, Occasional contractions FHR Monitoring Method: Doppler ultrasound FHR Monitoring Frequency: Continuous FHR Baseline: 130 bpm FHR Baseline Description: Normal, 110-160 bpm FHR Baseline Variability: Moderate variability FHR Accelerations: Present 01/25/2019 8:45 EST Uterine Contraction Monitoring Method External toco Uterine Contraction Description Uterine irritability, Occasional contractions FHR Monitoring Method: Doppler ultrasound FHR Monitoring Frequency: Continuous FHR Baseline: 130 bpm FHR Baseline Description: Normal, 110-160 bpm FHR Baseline Variability: Moderate variability FHR Accelerations: Present 01/25/2019 8:30 EST Uterine Contraction Monitoring Method External toco Uterine Contraction Description Uterine irritability, Occasional contractions FHR Monitoring Method: Doppler ultrasound FHR Monitoring Frequency: Continuous FHR Baseline: 135 bpm FHR Baseline Description: Normal, 110-160 bpm FHR Baseline Variability: Moderate variability 01/25/2019 8:15 EST Uterine Contraction Monitoring Method External toco Uterine Contraction Description Uterine irritability, Occasional contractions FHR Monitoring Method: Doppler ultrasound FHR Monitoring Frequency: Continuous FHR Baseline: 130 bpm FHR Baseline Description: Normal, 110-160 bpm FHR Baseline Variability: Moderate variability FHR Accelerations: Present 01/25/2019 8:12 EST Monitoring Annotations novi monitor placed 01/25/2019 8:00 EST Uterine Contraction Monitoring Method External toco Uterine Contraction Description Uterine irritability, Occasional contractions FHR Monitoring Method: Doppler ultrasound FHR Monitoring Frequency: Continuous FHR Baseline: 130 bpm FHR Baseline Description: Normal, 110-160 bpm FHR Baseline Variability: Moderate variability 01/25/2019 7:45 EST Monitoring Annotations pt sitting in rocking chair, novi placed Monitoring Annotations In Error (In Error) 01/25/2019 7:45 EST Uterine Contraction Monitoring Method External toco Uterine Contraction Description Uterine irritability, Occasional contractions FHR Monitoring Method: Doppler ultrasound FHR Monitoring Frequency: Continuous FHR Baseline: 140 bpm FHR Baseline Description: Normal, 110-160 bpm FHR Baseline Variability: Moderate variability 01/25/2019 7:17 EST Monitoring Annotations pt up to bathroom 01/25/2019 7:15 EST Uterine Contraction Monitoring Method External toco Uterine Contraction Description Uterine irritability, Occasional contractions FHR Monitoring Method: Doppler ultrasound FHR Monitoring Frequency: Continuous FHR Baseline: 130 bpm FHR Baseline Description: Normal, 110-160 bpm FHR Baseline Variability: Moderate variability FHR Accelerations: Present 01/25/2019 7:13 EST Monitoring Annotations pt sitting high fowlers 01/25/2019 7:00 EST Uterine Contraction Monitoring Method External toco Uterine Contraction Description Uterine irritability, Occasional contractions FHR Monitoring Method: Doppler ultrasound FHR Monitoring Frequency: Continuous FHR Baseline: 130 bpm FHR Baseline Description: Normal, 110-160 bpm FHR Baseline Variability: Moderate variability 01/25/2019 6:58 EST Monitoring Annotations pt returned to bed. 01/25/2019 6:50 EST Monitoring Annotations pt up to bathroom 01/25/2019 6:45 EST Uterine Contraction Monitoring Method External toco Uterine Contraction Description Uterine irritability, Occasional contractions FHR Monitoring Method: Doppler ultrasound FHR Monitoring Frequency: Continuous FHR Baseline: 135 bpm FHR Baseline Description: Normal, 110-160 bpm FHR Baseline Variability: Moderate variability 01/25/2019 6:30 EST Uterine Contraction Monitoring Method External toco Uterine Contraction Description Uterine irritability, Occasional contractions FHR Monitoring Method: Doppler ultrasound FHR Monitoring Method: Doppler ultrasound FHR Monitoring Frequency: Continuous FHR Monitoring Frequency: Continuous FHR Baseline: 130 bpm FHR Baseline Description: Normal, 110-160 bpm FHR Baseline Description: Normal, 110-160 bpm FHR Baseline Variability: Moderate variability FHR Baseline Variability: Moderate variability FHR Accelerations: Present 01/25/2019 6:15 EST Uterine Contraction Monitoring Method External toco Uterine Contraction Description Uterine irritability, Occasional contractions FHR Monitoring Method: Doppler ultrasound FHR Monitoring Method: Doppler ultrasound FHR Monitoring Frequency: Continuous FHR Monitoring Frequency: Continuous FHR Baseline: 130 bpm FHR Baseline Description: Normal, 110-160 bpm FHR Baseline Description: Normal, 110-160 bpm FHR Baseline Variability: Moderate variability FHR Baseline Variability: Moderate variability 01/25/2019 6:00 EST Uterine Contraction Monitoring Method External toco Uterine Contraction Description Uterine irritability, Occasional contractions FHR Monitoring Method: Doppler ultrasound FHR Monitoring Method: Doppler ultrasound FHR Monitoring Frequency: Continuous FHR Monitoring Frequency: Continuous FHR Baseline: 120 bpm FHR Baseline Description: Normal, 110-160 bpm FHR Baseline Description: Normal, 110-160 bpm FHR Baseline Variability: Moderate variability FHR Baseline Variability: Moderate variability 01/25/2019 5:45 EST Uterine Contraction Monitoring Method External toco Uterine Contraction Description Occasional contractions FHR Monitoring Method: Doppler ultrasound FHR Monitoring Frequency: Continuous FHR Baseline: 125 bpm FHR Baseline Description: Normal, 110-160 bpm FHR Baseline Variability: Moderate variability 01/25/2019 5:30 EST Uterine Contraction Monitoring Method External toco Uterine Contraction Description Occasional contractions FHR Monitoring Method: Doppler ultrasound FHR Monitoring Frequency: Continuous FHR Baseline: 125 bpm FHR Baseline Description: Normal, 110-160 bpm FHR Baseline Variability: Moderate variability 01/25/2019 5:15 EST Uterine Contraction Monitoring Method External toco Uterine Contraction Description Occasional contractions FHR Monitoring Method: Doppler ultrasound FHR Monitoring Frequency: Continuous FHR Baseline: 130 bpm FHR Baseline Description: Normal, 110-160 bpm FHR Baseline Variability: Moderate variability 01/25/2019 5:00 EST Uterine Contraction Monitoring Method External toco Uterine Contraction Description Occasional contractions FHR Monitoring Method: Doppler ultrasound FHR Monitoring Frequency: Continuous FHR Baseline Description: Normal, 110-160 bpm FHR Baseline Variability: Moderate variability FHR: 130 bpm 01/25/2019 4:51 EST Monitoring Annotations EFM readjusted 01/25/2019 4:32 EST Monitoring Annotations oxytocin infusion increased 01/25/2019 4:31 EST Monitoring Annotations pt returned to bed 01/25/2019 4:30 EST Uterine Contraction Monitoring Method External toco Uterine Contraction Description Mild, Occasional contractions FHR Monitoring Method: Doppler ultrasound FHR Monitoring Frequency: Continuous FHR Baseline: 125 bpm FHR Baseline Description: Normal, 110-160 bpm FHR Baseline Variability: Moderate variability FHR Accelerations: Present 01/25/2019 4:28 EST Monitoring Annotations pt up to bathroom 01/25/2019 4:15 EST Uterine Contraction Monitoring Method External toco Uterine Contraction Description Mild, Occasional contractions FHR Monitoring Method: Doppler ultrasound FHR Monitoring Frequency: Continuous FHR Baseline: 125 bpm FHR Baseline Description: Normal, 110-160 bpm FHR Baseline Variability: Moderate variability FHR Accelerations: Present 01/25/2019 4:00 EST Uterine Contraction Monitoring Method External toco Uterine Contraction Description Mild, Occasional contractions FHR Monitoring Method: Doppler ultrasound FHR Monitoring Frequency: Continuous FHR Baseline: 125 bpm FHR Baseline Description: Normal, 110-160 bpm FHR Baseline Variability: Moderate variability FHR Accelerations: Present 01/25/2019 3:45 EST Uterine Contraction Monitoring Method External toco Uterine Contraction Frequency 2-4 Uterine Contraction Duration 50-70 Uterine Contraction Description Mild FHR Monitoring Method: Doppler ultrasound FHR Monitoring Frequency: Continuous FHR Baseline: 125 bpm FHR Baseline Description: Normal, 110-160 bpm FHR Baseline Variability: Moderate variability FHR Accelerations: Present 01/25/2019 3:30 EST Uterine Contraction Monitoring Method External toco Uterine Contraction Description Mild, Occasional contractions FHR Monitoring Method: Doppler ultrasound FHR Monitoring Frequency: Continuous FHR Baseline: 135 bpm FHR Baseline Description: Normal, 110-160 bpm FHR Baseline Variability: Moderate variability FHR Accelerations: Present 01/25/2019 3:15 EST Uterine Contraction Monitoring Method External toco Uterine Contraction Description Uterine irritability, Occasional contractions 01/25/2019 3:00 EST Uterine Contraction Monitoring Method External toco Uterine Contraction Description Uterine irritability 01/25/2019 2:45 EST Uterine Contraction Monitoring Method External toco Uterine Contraction Frequency 2-3 Uterine Contraction Duration 60-120 Uterine Contraction Description Mild FHR Monitoring Method: Doppler ultrasound FHR Monitoring Frequency: Continuous FHR Baseline: 130 bpm FHR Baseline Description: Normal, 110-160 bpm FHR Baseline Variability: Moderate variability FHR Accelerations: Present 01/25/2019 2:30 EST Uterine Contraction Monitoring Method External toco Uterine Contraction Description Uterine irritability FHR Monitoring Method: Doppler ultrasound FHR Monitoring Frequency: Continuous FHR Baseline: 130 bpm FHR Baseline Description: Normal, 110-160 bpm FHR Baseline Variability: Moderate variability FHR Accelerations: Present 01/25/2019 2:15 EST Uterine Contraction Monitoring Method External toco Uterine Contraction Description Uterine irritability FHR Monitoring Method: Doppler ultrasound FHR Monitoring Frequency: Continuous FHR Baseline: 130 bpm FHR Baseline Description: Normal, 110-160 bpm FHR Baseline Variability: Moderate variability FHR Accelerations: Present 01/25/2019 2:00 EST Uterine Contraction Monitoring Method External toco Uterine Contraction Description Uterine irritability FHR Monitoring Method: Doppler ultrasound FHR Monitoring Frequency: Continuous FHR Baseline: 150 bpm FHR Baseline Description: Normal, 110-160 bpm FHR Baseline Variability: Moderate variability 01/25/2019 1:00 EST Provider Contacted Via Personal communication via phone Provider Response Other: pt may eat and shower; start oxytocin infusion in 1 hour OB Notification Reason Dilation Uterine Contraction Monitoring Method External toco Uterine Contraction Description Uterine irritability FHR Monitoring Method: Doppler ultrasound FHR Monitoring Frequency: Continuous FHR Baseline: 110 bpm FHR Baseline Description: Normal, 110-160 bpm FHR Baseline Variability: Moderate variability 01/25/2019 0:56 EST Monitoring Annotations SVE; Cervidil removed 01/25/2019 0:56 EST Cervix Dilation 1 cm Cervix Effacement 90 Station -2 Station Calculation -2 Cervical Consistency Soft Cervical Position Anterior Rao's Score 9 01/25/2019 0:52 EST Monitoring Annotations pt returned to bed 01/25/2019 0:49 EST Monitoring Annotations pt up to bathroom 01/25/2019 0:45 EST Uterine Contraction Monitoring Method External toco Uterine Contraction Description Uterine irritability FHR Monitoring Method: Doppler ultrasound FHR Monitoring Frequency: Continuous FHR Baseline: 110 bpm FHR Baseline Description: Normal, 110-160 bpm FHR Baseline Variability: Moderate variability FHR Accelerations: Present 01/25/2019 0:44 EST Monitoring Annotations RN evaluation of strip 01/25/2019 0:30 EST Monitoring Annotations RN evaluation of strip 01/25/2019 0:30 EST Uterine Contraction Monitoring Method External toco Uterine Contraction Description Uterine irritability FHR Monitoring Method: Doppler ultrasound FHR Monitoring Frequency: Continuous FHR Baseline: 110 bpm FHR Baseline Description: Normal, 110-160 bpm FHR Baseline Variability: Moderate variability 01/25/2019 0:15 EST Uterine Contraction Monitoring Method External toco Uterine Contraction Description None FHR Monitoring Method: Doppler ultrasound FHR Monitoring Frequency: Continuous FHR Baseline: 110 bpm FHR Baseline Description: Normal, 110-160 bpm FHR Baseline Variability: Moderate variability FHR Accelerations: Present 01/25/2019 0:00 EST Uterine Contraction Monitoring Method External toco Uterine Contraction Description None FHR Monitoring Method: Doppler ultrasound FHR Monitoring Frequency: Continuous FHR Baseline: 110 bpm FHR Baseline Description: Normal, 110-160 bpm FHR Baseline Variability: Moderate variability FHR Accelerations: Present 01/24/2019 23:45 EST Uterine Contraction Monitoring Method External toco Uterine Contraction Description Uterine irritability FHR Monitoring Method: Doppler ultrasound FHR Monitoring Frequency: Continuous FHR Baseline: 115 bpm FHR Baseline Description: Normal, 110-160 bpm FHR Baseline Variability: Moderate variability FHR Accelerations: Present 01/24/2019 23:30 EST Uterine Contraction Monitoring Method External toco Uterine Contraction Description Uterine irritability FHR Monitoring Method: Doppler ultrasound FHR Monitoring Frequency: Continuous FHR Baseline: 110 bpm FHR Baseline Description: Normal, 110-160 bpm FHR Baseline Variability: Moderate variability 01/24/2019 23:15 EST Uterine Contraction Monitoring Method External toco Uterine Contraction Description Occasional contractions FHR Monitoring Method: Doppler ultrasound FHR Monitoring Frequency: Continuous FHR Baseline: 110 bpm FHR Baseline Description: Normal, 110-160 bpm FHR Baseline Variability: Moderate variability FHR Accelerations: Present 01/24/2019 23:00 EST Uterine Contraction Monitoring Method External toco Uterine Contraction Description Uterine irritability FHR Monitoring Method: Doppler ultrasound FHR Monitoring Frequency: Continuous FHR Baseline: 110 bpm FHR Baseline Description: Normal, 110-160 bpm FHR Baseline Variability: Moderate variability 01/24/2019 22:45 EST Uterine Contraction Monitoring Method External toco Uterine Contraction Description Uterine irritability FHR Monitoring Method: Doppler ultrasound FHR Monitoring Frequency: Continuous FHR Baseline: 115 bpm FHR Baseline Description: Normal, 110-160 bpm FHR Baseline Variability: Moderate variability FHR Accelerations: Present 01/24/2019 22:30 EST Uterine Contraction Monitoring Method External toco Uterine Contraction Description Uterine irritability, Occasional contractions FHR Monitoring Method: Doppler ultrasound FHR Monitoring Frequency: Continuous FHR Baseline: 115 bpm FHR Baseline Description: Normal, 110-160 bpm FHR Baseline Variability: Moderate variability FHR Accelerations: Present 01/24/2019 22:15 EST Uterine Contraction Monitoring Method External toco Uterine Contraction Description Uterine irritability FHR Monitoring Method: Doppler ultrasound FHR Monitoring Frequency: Continuous FHR Baseline: 115 bpm FHR Baseline Description: Normal, 110-160 bpm FHR Baseline Variability: Moderate variability FHR Accelerations: Present 01/24/2019 22:00 EST Uterine Contraction Monitoring Method External toco Uterine Contraction Description Uterine irritability, Occasional contractions FHR Monitoring Method: Doppler ultrasound FHR Monitoring Frequency: Continuous FHR Baseline: 115 bpm FHR Baseline Description: Normal, 110-160 bpm FHR Baseline Variability: Moderate variability FHR Accelerations: Present 01/24/2019 21:49 EST Monitoring Annotations pt standing at bedside 01/24/2019 21:45 EST Uterine Contraction Monitoring Method External toco Uterine Contraction Description Uterine irritability FHR Monitoring Method: Doppler ultrasound FHR Monitoring Frequency: Continuous FHR Baseline: 115 bpm FHR Baseline Description: Normal, 110-160 bpm FHR Baseline Variability: Moderate variability FHR Accelerations: Present 01/24/2019 21:30 EST Uterine Contraction Monitoring Method External toco Uterine Contraction Description Uterine irritability FHR Monitoring Method: Doppler ultrasound FHR Monitoring Frequency: Continuous FHR Baseline: 110 bpm FHR Baseline Description: Normal, 110-160 bpm FHR Baseline Variability: Moderate variability FHR Accelerations: Present 01/24/2019 21:15 EST Uterine Contraction Monitoring Method External toco Uterine Contraction Description Uterine irritability FHR Monitoring Method: Doppler ultrasound FHR Monitoring Frequency: Continuous FHR Baseline: 110 bpm FHR Baseline Description: Normal, 110-160 bpm FHR Baseline Variability: Moderate variability FHR Accelerations: Present 01/24/2019 21:00 EST Uterine Contraction Monitoring Method External toco Uterine Contraction Description Uterine irritability FHR Monitoring Method: Doppler ultrasound FHR Monitoring Frequency: Continuous FHR Baseline: 120 bpm FHR Baseline Description: Normal, 110-160 bpm FHR Baseline Variability: Moderate variability FHR Accelerations: Present 01/24/2019 20:45 EST Uterine Contraction Monitoring Method External toco Uterine Contraction Description Uterine irritability FHR Monitoring Method: Doppler ultrasound FHR Monitoring Frequency: Continuous FHR Baseline: 125 bpm FHR Reactive: Yes FHR Baseline Description: Normal, 110-160 bpm FHR Baseline Variability: Moderate variability FHR Accelerations: Present FHR Acceleration Description: Abrupt FHR Deceleration: Absent 01/24/2019 20:30 EST Uterine Contraction Monitoring Method External toco Uterine Contraction Description Uterine irritability, Occasional contractions FHR Monitoring Method: Doppler ultrasound FHR Monitoring Frequency: Continuous FHR Baseline: 125 bpm FHR Reactive: Yes FHR Baseline Description: Normal, 110-160 bpm FHR Baseline Variability: Moderate variability FHR Accelerations: Present FHR Acceleration Description: Abrupt FHR Deceleration: Absent 01/24/2019 20:15 EST Uterine Contraction Monitoring Method External toco Uterine Contraction Description None FHR Monitoring Method: Doppler ultrasound FHR Monitoring Frequency: Continuous FHR Baseline: 125 bpm FHR Reactive: Yes FHR Baseline Description: Normal, 110-160 bpm FHR Baseline Variability: Moderate variability FHR Accelerations: Present FHR Acceleration Description: Abrupt FHR Deceleration: Absent 01/24/2019 20:00 EST Uterine Contraction Monitoring Method External toco Uterine Contraction Description None FHR Monitoring Method: Doppler ultrasound FHR Monitoring Frequency: Continuous FHR Baseline: 125 bpm FHR Reactive: Yes FHR Baseline Description: Normal, 110-160 bpm FHR Baseline Variability: Moderate variability FHR Accelerations: Present FHR Acceleration Description: Abrupt FHR Deceleration: Absent 01/24/2019 19:45 EST A FHR Monitoring Method: Doppler ultrasound FHR Monitoring Frequency: Continuous FHR: 135 bpm 01/24/2019 19:30 EST Uterine Contraction Monitoring Method External toco Uterine Contraction Description Uterine irritability FHR Monitoring Method: Doppler ultrasound FHR Monitoring Frequency: Continuous FHR: 135 bpm 01/24/2019 19:00 EST Uterine Contraction Monitoring Method External toco Uterine Contraction Description Uterine irritability, Occasional contractions FHR Monitoring Method: Doppler ultrasound FHR Monitoring Frequency: Continuous FHR Baseline: 130 bpm FHR Reactive: Yes FHR Baseline Description: Normal, 110-160 bpm FHR Baseline Variability: Moderate variability Impression and Plan condition: Reassuring heart rate. Maternal condition: Stable. Plan Continue present care. With patient consent - IFM and IUPC were placed without difficulty. After both were placed tracing exhibited deceleration which did respond to maternal repositioning. Was noted to have small amount of caput during cervical exam - discussed with patient family possible malposition or CPD Will continue pitocin per protocol and monitor closely Dr Grace updated and is agreeable with plan. Electronically signed by Molly Neal CNM 01/25/19 16:40 EST Normal [facility] Obstetrics Progress Note Patient: Iesha Thomas Age: 18 years Sex: Female : 2000 Associated Diagnoses: Thin meconium stained amniotic fluid Author: Molly Neal CNM Basic Information Gestational Age: Gestational Age (EGA) and MASOOD * Note: EGA calculated as of 01/25/2019 MASOOD: 01/23/2019 EGA*: 40 weeks 2 days Type: Final Method Date: 06/14/2018 Method: Last Menstrual Period (06/14/2018) Confirmation: Confirmed Description: -- Comments: -- Entered by: La Cassidy on 01/24/2019 Other MASOOD Calculations for this : No additional MASOOD calculations have been recorded for this . Review of Systems Constitutional: Negative. Eye: Negative. Ear/Nose/Mouth/Throat: Negative. Respiratory: Negative. Cardiovascular: Negative. Breast: Negative. Gastrointestinal: Negative. Genitourinary: Negative. Gynecologic: Negative. Hematology/Lymphatics: Negative. Endocrine/Renal: Negative. Immunologic: Negative. Musculoskeletal: Negative. Integumentary: Negative. Neurologic: Negative. Psychiatric: Negative. All other systems are negative Health Status Problem list: Problems (Active Problems Only) (SNOMED CT: [id number], Onset: 06/14/18) Physical Examination VS/Measurements Vital Signs (last 24 hrs) Last Charted Temp Oral 36.8 degC (JAN 24 11:45) Resp Rate 16 br/min (JAN 25:) SBP 107 mmHg (JAN 25:15) DBP L 56mmHg (JAN 25:) Weight 106 kg (JAN 24 11:21) General: Alert and oriented. Eye: Pupils are equal, round and reactive to light. HENT: Normocephalic. Respiratory: Respirations are non-labored. Cardiovascular: Normal rate. Gastrointestinal: Soft. Obstetric Exam Contractions noted: mild in quality. Uterus: consistent with gestational age. [place]/ Baby A evaluation: movement present, heart tones (within normal limits (110 to 160 bpm), rate and rhythm regular, variability moderate (6-25 bpm over baseline), acceleration pattern present - greater than 15 bpm over baseline for 15 seconds but less than 2 minutes, decelerations absent), assessment of heart tracing reassuring heart rate, presentation/ presenting part vertex. Cervix: dilated 1.5 cm, 90 % effaced, station/ evidence of descent -2, membrane status ruptured artificially, amniotic fluid (thinly meconium stained, moderate amount). Musculoskeletal Normal range of motion. Integumentary: Warm, Dry, [place]. Neurologic: Alert, Oriented. Psychiatric: Cooperative. Review / Management OB Results Review MASOOD/ EGA: 01/24/2019 13:11 EST 1 Current 01/25/2019 9:15 EST Uterine Contraction Monitoring Method External toco Uterine Contraction Description Uterine irritability, Occasional contractions A FHR Monitoring Method: Doppler ultrasound FHR Monitoring Frequency: Continuous FHR Baseline: 125 bpm FHR Baseline Description: Normal, 110-160 bpm FHR Baseline Variability: Moderate variability FHR Accelerations: Present 01/25/2019 9:00 EST Uterine Contraction Monitoring Method External toco Uterine Contraction Description Uterine irritability, Occasional contractions FHR Monitoring Method: Doppler ultrasound FHR Monitoring Frequency: Continuous FHR Baseline: 130 bpm FHR Baseline Description: Normal, 110-160 bpm FHR Baseline Variability: Moderate variability FHR Accelerations: Present 01/25/2019 8:45 EST Uterine Contraction Monitoring Method External [place] Uterine Contraction Description Uterine irritability, Occasional contractions FHR Monitoring Method: Doppler ultrasound FHR Monitoring Frequency: Continuous FHR Baseline: 130 bpm FHR Baseline Description: Normal, 110-160 bpm FHR Baseline Variability: Moderate variability FHR Accelerations: Present 01/25/2019 8:30 EST Uterine Contraction Monitoring Method External toco Uterine Contraction Description Uterine irritability, Occasional contractions FHR Monitoring Method: Doppler ultrasound FHR Monitoring Frequency: Continuous FHR Baseline: 135 bpm FHR Baseline Description: Normal, 110-160 bpm FHR Baseline Variability: Moderate variability 01/25/2019 8:15 EST Uterine Contraction Monitoring Method External toco Uterine Contraction Description Uterine irritability, Occasional contractions FHR Monitoring Method: Doppler ultrasound FHR Monitoring Frequency: Continuous FHR Baseline: 130 bpm FHR Baseline Description: Normal, 110-160 bpm FHR Baseline Variability: Moderate variability FHR Accelerations: Present 01/25/2019 8:12 EST Monitoring Annotations novi monitor placed 01/25/2019 8:00 EST Uterine Contraction Monitoring Method External toco Uterine Contraction Description Uterine irritability, Occasional contractions FHR Monitoring Method: Doppler ultrasound FHR Monitoring Frequency: Continuous FHR Baseline: 130 bpm FHR Baseline Description: Normal, 110-160 bpm FHR Baseline Variability: Moderate variability 01/25/2019 7:45 EST Monitoring Annotations pt sitting in rocking chair, novi placed Monitoring Annotations In Error (In Error) 01/25/2019 7:45 EST Uterine Contraction Monitoring Method External toco Uterine Contraction Description Uterine irritability, Occasional contractions FHR Monitoring Method: Doppler ultrasound FHR Monitoring Frequency: Continuous FHR Baseline: 140 bpm FHR Baseline Description: Normal, 110-160 bpm FHR Baseline Variability: Moderate variability 01/25/2019 7:17 EST Monitoring Annotations pt up to bathroom 01/25/2019 7:15 EST Uterine Contraction Monitoring Method External toco Uterine Contraction Description Uterine irritability, Occasional contractions FHR Monitoring Method: Doppler ultrasound FHR Monitoring Frequency: Continuous FHR Baseline: 130 bpm FHR Baseline Description: Normal, 110-160 bpm FHR Baseline Variability: Moderate variability FHR Accelerations: Present 01/25/2019 7:13 EST Monitoring Annotations pt sitting high fowlers 01/25/2019 7:00 EST Uterine Contraction Monitoring Method External toco Uterine Contraction Description Uterine irritability, Occasional contractions FHR Monitoring Method: Doppler ultrasound FHR Monitoring Frequency: Continuous FHR Baseline: 130 bpm FHR Baseline Description: Normal, 110-160 bpm FHR Baseline Variability: Moderate variability 01/25/2019 6:58 EST Monitoring Annotations pt returned to bed. 01/25/2019 6:50 EST Monitoring Annotations pt up to bathroom 01/25/2019 6:45 EST Uterine Contraction Monitoring Method External toco Uterine Contraction Description Uterine irritability, Occasional contractions FHR Monitoring Method: Doppler ultrasound FHR Monitoring Frequency: Continuous FHR Baseline: 135 bpm FHR Baseline Description: Normal, 110-160 bpm FHR Baseline Variability: Moderate variability 01/25/2019 6:30 EST Uterine Contraction Monitoring Method External toco Uterine Contraction Description Uterine irritability, Occasional contractions FHR Monitoring Method: Doppler ultrasound FHR Monitoring Method: Doppler ultrasound FHR Monitoring Frequency: Continuous FHR Monitoring Frequency: Continuous FHR Baseline: 130 bpm FHR Baseline Description: Normal, 110-160 bpm FHR Baseline Description: Normal, 110-160 bpm FHR Baseline Variability: Moderate variability FHR Baseline Variability: Moderate variability FHR Accelerations: Present 01/25/2019 6:15 EST Uterine Contraction Monitoring Method External toco Uterine Contraction Description Uterine irritability, Occasional contractions FHR Monitoring Method: Doppler ultrasound FHR Monitoring Method: Doppler ultrasound FHR Monitoring Frequency: Continuous FHR Monitoring Frequency: Continuous FHR Baseline: 130 bpm FHR Baseline Description: Normal, 110-160 bpm FHR Baseline Description: Normal, 110-160 bpm FHR Baseline Variability: Moderate variability FHR Baseline Variability: Moderate variability 01/25/2019 6:00 EST Uterine Contraction Monitoring Method External toco Uterine Contraction Description Uterine irritability, Occasional contractions FHR Monitoring Method: Doppler ultrasound FHR Monitoring Method: Doppler ultrasound FHR Monitoring Frequency: Continuous FHR Monitoring Frequency: Continuous FHR Baseline: 120 bpm FHR Baseline Description: Normal, 110-160 bpm FHR Baseline Description: Normal, 110-160 bpm FHR Baseline Variability: Moderate variability FHR Baseline Variability: Moderate variability 01/25/2019 5:45 EST Uterine Contraction Monitoring Method External toco Uterine Contraction Description Occasional contractions FHR Monitoring Method: Doppler ultrasound FHR Monitoring Frequency: Continuous FHR Baseline: 125 bpm FHR Baseline Description: Normal, 110-160 bpm FHR Baseline Variability: Moderate variability 01/25/2019 5:30 EST Uterine Contraction Monitoring Method External toco Uterine Contraction Description Occasional contractions FHR Monitoring Method: Doppler ultrasound FHR Monitoring Frequency: Continuous FHR Baseline: 125 bpm FHR Baseline Description: Normal, 110-160 bpm FHR Baseline Variability: Moderate variability 01/25/2019 5:15 EST Uterine Contraction Monitoring Method External toco Uterine Contraction Description Occasional contractions FHR Monitoring Method: Doppler ultrasound FHR Monitoring Frequency: Continuous FHR Baseline: 130 bpm FHR Baseline Description: Normal, 110-160 bpm FHR Baseline Variability: Moderate variability 01/25/2019 5:00 EST Uterine Contraction Monitoring Method External toco Uterine Contraction Description Occasional contractions FHR Monitoring Method: Doppler ultrasound FHR Monitoring Frequency: Continuous FHR Baseline Description: Normal, 110-160 bpm FHR Baseline Variability: Moderate variability FHR: 130 bpm 01/25/2019 4:51 EST Monitoring Annotations EFM readjusted 01/25/2019 4:32 EST Monitoring Annotations oxytocin infusion increased 01/25/2019 4:31 EST Monitoring Annotations pt returned to bed 01/25/2019 4:30 EST Uterine Contraction Monitoring Method External toco Uterine Contraction Description Mild, Occasional contractions FHR Monitoring Method: Doppler ultrasound FHR Monitoring Frequency: Continuous FHR Baseline: 125 bpm FHR Baseline Description: Normal, 110-160 bpm FHR Baseline Variability: Moderate variability FHR Accelerations: Present 01/25/2019 4:28 EST Monitoring Annotations pt up to bathroom 01/25/2019 4:15 EST Uterine Contraction Monitoring Method External toco Uterine Contraction Description Mild, Occasional contractions FHR Monitoring Method: Doppler ultrasound FHR Monitoring Frequency: Continuous FHR Baseline: 125 bpm FHR Baseline Description: Normal, 110-160 bpm FHR Baseline Variability: Moderate variability FHR Accelerations: Present 01/25/2019 4:00 EST Uterine Contraction Monitoring Method External toco Uterine Contraction Description Mild, Occasional contractions FHR Monitoring Method: Doppler ultrasound FHR Monitoring Frequency: Continuous FHR Baseline: 125 bpm FHR Baseline Description: Normal, 110-160 bpm FHR Baseline Variability: Moderate variability FHR Accelerations: Present 01/25/2019 3:45 EST Uterine Contraction Monitoring Method External toco Uterine Contraction Frequency 2-4 Uterine Contraction Duration 50-70 Uterine Contraction Description Mild FHR Monitoring Method: Doppler ultrasound FHR Monitoring Frequency: Continuous FHR Baseline: 125 bpm FHR Baseline Description: Normal, 110-160 bpm FHR Baseline Variability: Moderate variability FHR Accelerations: Present 01/25/2019 3:30 EST Uterine Contraction Monitoring Method External toco Uterine Contraction Description Mild, Occasional contractions FHR Monitoring Method: Doppler ultrasound FHR Monitoring Frequency: Continuous FHR Baseline: 135 bpm FHR Baseline Description: Normal, 110-160 bpm FHR Baseline Variability: Moderate variability FHR Accelerations: Present 01/25/2019 3:15 EST Uterine Contraction Monitoring Method External toco Uterine Contraction Description Uterine irritability, Occasional contractions 01/25/2019 3:00 EST Uterine Contraction Monitoring Method External toco Uterine Contraction Description Uterine irritability 01/25/2019 2:45 EST Uterine Contraction Monitoring Method External toco Uterine Contraction Frequency 2-3 Uterine Contraction Duration 60-120 Uterine Contraction Description Mild FHR Monitoring Method: Doppler ultrasound FHR Monitoring Frequency: Continuous FHR Baseline: 130 bpm FHR Baseline Description: Normal, 110-160 bpm FHR Baseline Variability: Moderate variability FHR Accelerations: Present 01/25/2019 2:30 EST Uterine Contraction Monitoring Method External toco Uterine Contraction Description Uterine irritability FHR Monitoring Method: Doppler ultrasound FHR Monitoring Frequency: Continuous FHR Baseline: 130 bpm FHR Baseline Description: Normal, 110-160 bpm FHR Baseline Variability: Moderate variability FHR Accelerations: Present 01/25/2019 2:15 EST Uterine Contraction Monitoring Method External toco Uterine Contraction Description Uterine irritability FHR Monitoring Method: Doppler ultrasound FHR Monitoring Frequency: Continuous FHR Baseline: 130 bpm FHR Baseline Description: Normal, 110-160 bpm FHR Baseline Variability: Moderate variability FHR Accelerations: Present 01/25/2019 2:00 EST Uterine Contraction Monitoring Method External toco Uterine Contraction Description Uterine irritability FHR Monitoring Method: Doppler ultrasound FHR Monitoring Frequency: Continuous FHR Baseline: 150 bpm FHR Baseline Description: Normal, 110-160 bpm FHR Baseline Variability: Moderate variability 01/25/2019 1:00 EST Provider Contacted Via Personal communication via phone Provider Response Other: pt may eat and shower; start oxytocin infusion in 1 hour OB Notification Reason Dilation Uterine Contraction Monitoring Method External toco Uterine Contraction Description Uterine irritability FHR Monitoring Method: Doppler ultrasound FHR Monitoring Frequency: Continuous FHR Baseline: 110 bpm FHR Baseline Description: Normal, 110-160 bpm FHR Baseline Variability: Moderate variability 01/25/2019 0:56 EST Monitoring Annotations SVE; Cervidil removed 01/25/2019 0:56 EST Cervix Dilation 1 cm Cervix Effacement 90 Station -2 Station Calculation -2 Cervical Consistency Soft Cervical Position Anterior Rao's Score 9 01/25/2019 0:52 EST Monitoring Annotations pt returned to bed 01/25/2019 0:49 EST Monitoring Annotations pt up to bathroom 01/25/2019 0:45 EST Uterine Contraction Monitoring Method External toco Uterine Contraction Description Uterine irritability FHR Monitoring Method: Doppler ultrasound FHR Monitoring Frequency: Continuous FHR Baseline: 110 bpm FHR Baseline Description: Normal, 110-160 bpm FHR Baseline Variability: Moderate variability FHR Accelerations: Present 01/25/2019 0:44 EST Monitoring Annotations RN evaluation of strip 01/25/2019 0:30 EST Monitoring Annotations RN evaluation of strip 01/25/2019 0:30 EST Uterine Contraction Monitoring Method External toco Uterine Contraction Description Uterine irritability FHR Monitoring Method: Doppler ultrasound FHR Monitoring Frequency: Continuous FHR Baseline: 110 bpm FHR Baseline Description: Normal, 110-160 bpm FHR Baseline Variability: Moderate variability 01/25/2019 0:15 EST Uterine Contraction Monitoring Method External toco Uterine Contraction Description None FHR Monitoring Method: Doppler ultrasound FHR Monitoring Frequency: Continuous FHR Baseline: 110 bpm FHR Baseline Description: Normal, 110-160 bpm FHR Baseline Variability: Moderate variability FHR Accelerations: Present 01/25/2019 0:00 EST Uterine Contraction Monitoring Method External toco Uterine Contraction Description None FHR Monitoring Method: Doppler ultrasound FHR Monitoring Frequency: Continuous FHR Baseline: 110 bpm FHR Baseline Description: Normal, 110-160 bpm FHR Baseline Variability: Moderate variability FHR Accelerations: Present 01/24/2019 23:45 EST Uterine Contraction Monitoring Method External toco Uterine Contraction Description Uterine irritability FHR Monitoring Method: Doppler ultrasound FHR Monitoring Frequency: Continuous FHR Baseline: 115 bpm FHR Baseline Description: Normal, 110-160 bpm FHR Baseline Variability: Moderate variability FHR Accelerations: Present 01/24/2019 23:30 EST Uterine Contraction Monitoring Method External toco Uterine Contraction Description Uterine irritability FHR Monitoring Method: Doppler ultrasound FHR Monitoring Frequency: Continuous FHR Baseline: 110 bpm FHR Baseline Description: Normal, 110-160 bpm FHR Baseline Variability: Moderate variability 01/24/2019 23:15 EST Uterine Contraction Monitoring Method External toco Uterine Contraction Description Occasional contractions FHR Monitoring Method: Doppler ultrasound FHR Monitoring Frequency: Continuous FHR Baseline: 110 bpm FHR Baseline Description: Normal, 110-160 bpm FHR Baseline Variability: Moderate variability FHR Accelerations: Present 01/24/2019 23:00 EST Uterine Contraction Monitoring Method External toco Uterine Contraction Description Uterine irritability FHR Monitoring Method: Doppler ultrasound FHR Monitoring Frequency: Continuous FHR Baseline: 110 bpm FHR Baseline Description: Normal, 110-160 bpm FHR Baseline Variability: Moderate variability 01/24/2019 22:45 EST Uterine Contraction Monitoring Method External toco Uterine Contraction Description Uterine irritability FHR Monitoring Method: Doppler ultrasound FHR Monitoring Frequency: Continuous FHR Baseline: 115 bpm FHR Baseline Description: Normal, 110-160 bpm FHR Baseline Variability: Moderate variability FHR Accelerations: Present 01/24/2019 22:30 EST Uterine Contraction Monitoring Method External toco Uterine Contraction Description Uterine irritability, Occasional contractions FHR Monitoring Method: Doppler ultrasound FHR Monitoring Frequency: Continuous FHR Baseline: 115 bpm FHR Baseline Description: Normal, 110-160 bpm FHR Baseline Variability: Moderate variability FHR Accelerations: Present 01/24/2019 22:15 EST Uterine Contraction Monitoring Method External toco Uterine Contraction Description Uterine irritability FHR Monitoring Method: Doppler ultrasound FHR Monitoring Frequency: Continuous FHR Baseline: 115 bpm FHR Baseline Description: Normal, 110-160 bpm FHR Baseline Variability: Moderate variability FHR Accelerations: Present 01/24/2019 22:00 EST Uterine Contraction Monitoring Method External toco Uterine Contraction Description Uterine irritability, Occasional contractions FHR Monitoring Method: Doppler ultrasound FHR Monitoring Frequency: Continuous FHR Baseline: 115 bpm FHR Baseline Description: Normal, 110-160 bpm FHR Baseline Variability: Moderate variability FHR Accelerations: Present 01/24/2019 21:49 EST Monitoring Annotations pt standing at bedside 01/24/2019 21:45 EST Uterine Contraction Monitoring Method External toco Uterine Contraction Description Uterine irritability FHR Monitoring Method: Doppler ultrasound FHR Monitoring Frequency: Continuous FHR Baseline: 115 bpm FHR Baseline Description: Normal, 110-160 bpm FHR Baseline Variability: Moderate variability FHR Accelerations: Present 01/24/2019 21:30 EST Uterine Contraction Monitoring Method External toco Uterine Contraction Description Uterine irritability FHR Monitoring Method: Doppler ultrasound FHR Monitoring Frequency: Continuous FHR Baseline: 110 bpm FHR Baseline Description: Normal, 110-160 bpm FHR Baseline Variability: Moderate variability FHR Accelerations: Present 01/24/2019 21:15 EST Uterine Contraction Monitoring Method External toco Uterine Contraction Description Uterine irritability FHR Monitoring Method: Doppler ultrasound FHR Monitoring Frequency: Continuous FHR Baseline: 110 bpm FHR Baseline Description: Normal, 110-160 bpm FHR Baseline Variability: Moderate variability FHR Accelerations: Present 01/24/2019 21:00 EST Uterine Contraction Monitoring Method External toco Uterine Contraction Description Uterine irritability FHR Monitoring Method: Doppler ultrasound FHR Monitoring Frequency: Continuous FHR Baseline: 120 bpm FHR Baseline Description: Normal, 110-160 bpm FHR Baseline Variability: Moderate variability FHR Accelerations: Present 01/24/2019 20:45 EST Uterine Contraction Monitoring Method External toco Uterine Contraction Description Uterine irritability FHR Monitoring Method: Doppler ultrasound FHR Monitoring Frequency: Continuous FHR Baseline: 125 bpm FHR Reactive: Yes FHR Baseline Description: Normal, 110-160 bpm FHR Baseline Variability: Moderate variability FHR Accelerations: Present FHR Acceleration Description: Abrupt FHR Deceleration: Absent 01/24/2019 20:30 EST Uterine Contraction Monitoring Method External toco Uterine Contraction Description Uterine irritability, Occasional contractions FHR Monitoring Method: Doppler ultrasound FHR Monitoring Frequency: Continuous FHR Baseline: 125 bpm FHR Reactive: Yes FHR Baseline Description: Normal, 110-160 bpm FHR Baseline Variability: Moderate variability FHR Accelerations: Present FHR Acceleration Description: Abrupt FHR Deceleration: Absent 01/24/2019 20:15 EST Uterine Contraction Monitoring Method External toco Uterine Contraction Description None FHR Monitoring Method: Doppler ultrasound FHR Monitoring Frequency: Continuous FHR Baseline: 125 bpm FHR Reactive: Yes FHR Baseline Description: Normal, 110-160 bpm FHR Baseline Variability: Moderate variability FHR Accelerations: Present FHR Acceleration Description: Abrupt FHR Deceleration: Absent 01/24/2019 20:00 EST Uterine Contraction Monitoring Method External toco Uterine Contraction Description None FHR Monitoring Method: Doppler ultrasound FHR Monitoring Frequency: Continuous FHR Baseline: 125 bpm FHR Reactive: Yes FHR Baseline Description: Normal, 110-160 bpm FHR Baseline Variability: Moderate variability FHR Accelerations: Present FHR Acceleration Description: Abrupt FHR Deceleration: Absent 01/24/2019 19:45 EST A FHR Monitoring Method: Doppler ultrasound FHR Monitoring Frequency: Continuous FHR: 135 bpm 01/24/2019 19:30 EST Uterine Contraction Monitoring Method External toco Uterine Contraction Description Uterine irritability FHR Monitoring Method: Doppler ultrasound FHR Monitoring Frequency: Continuous FHR: 135 bpm 01/24/2019 19:00 EST Uterine Contraction Monitoring Method External toco Uterine Contraction Description Uterine irritability, Occasional contractions FHR Monitoring Method: Doppler ultrasound FHR Monitoring Frequency: Continuous FHR Baseline: 130 bpm FHR Reactive: Yes FHR Baseline Description: Normal, 110-160 bpm FHR Baseline Variability: Moderate variability Labor 01/25/2019 9:15 EST Uterine Contraction Monitoring Method External toco Uterine Contraction Description Uterine irritability, Occasional contractions A FHR Monitoring Method: Doppler ultrasound FHR Monitoring Frequency: Continuous FHR Baseline: 125 bpm FHR Baseline Description: Normal, 110-160 bpm FHR Baseline Variability: Moderate variability FHR Accelerations: Present 01/25/2019 9:00 EST Uterine Contraction Monitoring Method External toco Uterine Contraction Description Uterine irritability, Occasional contractions FHR Monitoring Method: Doppler ultrasound FHR Monitoring Frequency: Continuous FHR Baseline: 130 bpm FHR Baseline Description: Normal, 110-160 bpm FHR Baseline Variability: Moderate variability FHR Accelerations: Present 01/25/2019 8:45 EST Uterine Contraction Monitoring Method External toco Uterine Contraction Description Uterine irritability, Occasional contractions FHR Monitoring Method: Doppler ultrasound FHR Monitoring Frequency: Continuous FHR Baseline: 130 bpm FHR Baseline Description: Normal, 110-160 bpm FHR Baseline Variability: Moderate variability FHR Accelerations: Present 01/25/2019 8:30 EST Uterine Contraction Monitoring Method External toco Uterine Contraction Description Uterine irritability, Occasional contractions FHR Monitoring Method: Doppler ultrasound FHR Monitoring Frequency: Continuous FHR Baseline: 135 bpm FHR Baseline Description: Normal, 110-160 bpm FHR Baseline Variability: Moderate variability 01/25/2019 8:15 EST Uterine Contraction Monitoring Method External toco Uterine Contraction Description Uterine irritability, Occasional contractions FHR Monitoring Method: Doppler ultrasound FHR Monitoring Frequency: Continuous FHR Baseline: 130 bpm FHR Baseline Description: Normal, 110-160 bpm FHR Baseline Variability: Moderate variability FHR Accelerations: Present 01/25/2019 8:12 EST Monitoring Annotations novi monitor placed 01/25/2019 8:00 EST Uterine Contraction Monitoring Method External toco Uterine Contraction Description Uterine irritability, Occasional contractions FHR Monitoring Method: Doppler ultrasound FHR Monitoring Frequency: Continuous FHR Baseline: 130 bpm FHR Baseline Description: Normal, 110-160 bpm FHR Baseline Variability: Moderate variability 01/25/2019 7:45 EST Monitoring Annotations pt sitting in rocking chair, novi placed Monitoring Annotations In Error (In Error) 01/25/2019 7:45 EST Uterine Contraction Monitoring Method External toco Uterine Contraction Description Uterine irritability, Occasional contractions FHR Monitoring Method: Doppler ultrasound FHR Monitoring Frequency: Continuous FHR Baseline: 140 bpm FHR Baseline Description: Normal, 110-160 bpm FHR Baseline Variability: Moderate variability 01/25/2019 7:17 EST Monitoring Annotations pt up to bathroom 01/25/2019 7:15 EST Uterine Contraction Monitoring Method External toco Uterine Contraction Description Uterine irritability, Occasional contractions FHR Monitoring Method: Doppler ultrasound FHR Monitoring Frequency: Continuous FHR Baseline: 130 bpm FHR Baseline Description: Normal, 110-160 bpm FHR Baseline Variability: Moderate variability FHR Accelerations: Present 01/25/2019 7:13 EST Monitoring Annotations pt sitting high fowlers 01/25/2019 7:00 EST Uterine Contraction Monitoring Method External toco Uterine Contraction Description Uterine irritability, Occasional contractions FHR Monitoring Method: Doppler ultrasound FHR Monitoring Frequency: Continuous FHR Baseline: 130 bpm FHR Baseline Description: Normal, 110-160 bpm FHR Baseline Variability: Moderate variability 01/25/2019 6:58 EST Monitoring Annotations pt returned to bed. 01/25/2019 6:50 EST Monitoring Annotations pt up to bathroom 01/25/2019 6:45 EST Uterine Contraction Monitoring Method External toco Uterine Contraction Description Uterine irritability, Occasional contractions FHR Monitoring Method: Doppler ultrasound FHR Monitoring Frequency: Continuous FHR Baseline: 135 bpm FHR Baseline Description: Normal, 110-160 bpm FHR Baseline Variability: Moderate variability 01/25/2019 6:30 EST Uterine Contraction Monitoring Method External toco Uterine Contraction Description Uterine irritability, Occasional contractions FHR Monitoring Method: Doppler ultrasound FHR Monitoring Method: Doppler ultrasound FHR Monitoring Frequency: Continuous FHR Monitoring Frequency: Continuous FHR Baseline: 130 bpm FHR Baseline Description: Normal, 110-160 bpm FHR Baseline Description: Normal, 110-160 bpm FHR Baseline Variability: Moderate variability FHR Baseline Variability: Moderate variability FHR Accelerations: Present 01/25/2019 6:15 EST Uterine Contraction Monitoring Method External toco Uterine Contraction Description Uterine irritability, Occasional contractions FHR Monitoring Method: Doppler ultrasound FHR Monitoring Method: Doppler ultrasound FHR Monitoring Frequency: Continuous FHR Monitoring Frequency: Continuous FHR Baseline: 130 bpm FHR Baseline Description: Normal, 110-160 bpm FHR Baseline Description: Normal, 110-160 bpm FHR Baseline Variability: Moderate variability FHR Baseline Variability: Moderate variability 01/25/2019 6:00 EST Uterine Contraction Monitoring Method External toco Uterine Contraction Description Uterine irritability, Occasional contractions FHR Monitoring Method: Doppler ultrasound FHR Monitoring Method: Doppler ultrasound FHR Monitoring Frequency: Continuous FHR Monitoring Frequency: Continuous FHR Baseline: 120 bpm FHR Baseline Description: Normal, 110-160 bpm FHR Baseline Description: Normal, 110-160 bpm FHR Baseline Variability: Moderate variability FHR Baseline Variability: Moderate variability 01/25/2019 5:45 EST Uterine Contraction Monitoring Method External toco Uterine Contraction Description Occasional contractions FHR Monitoring Method: Doppler ultrasound FHR Monitoring Frequency: Continuous FHR Baseline: 125 bpm FHR Baseline Description: Normal, 110-160 bpm FHR Baseline Variability: Moderate variability 01/25/2019 5:30 EST Uterine Contraction Monitoring Method External toco Uterine Contraction Description Occasional contractions FHR Monitoring Method: Doppler ultrasound FHR Monitoring Frequency: Continuous FHR Baseline: 125 bpm FHR Baseline Description: Normal, 110-160 bpm FHR Baseline Variability: Moderate variability 01/25/2019 5:15 EST Uterine Contraction Monitoring Method External toco Uterine Contraction Description Occasional contractions FHR Monitoring Method: Doppler ultrasound FHR Monitoring Frequency: Continuous FHR Baseline: 130 bpm FHR Baseline Description: Normal, 110-160 bpm FHR Baseline Variability: Moderate variability 01/25/2019 5:00 EST Uterine Contraction Monitoring Method External toco Uterine Contraction Description Occasional contractions FHR Monitoring Method: Doppler ultrasound FHR Monitoring Frequency: Continuous FHR Baseline Description: Normal, 110-160 bpm FHR Baseline Variability: Moderate variability FHR: 130 bpm 01/25/2019 4:51 EST Monitoring Annotations EFM readjusted 01/25/2019 4:32 EST Monitoring Annotations oxytocin infusion increased 01/25/2019 4:31 EST Monitoring Annotations pt returned to bed 01/25/2019 4:30 EST Uterine Contraction Monitoring Method External toco Uterine Contraction Description Mild, Occasional contractions FHR Monitoring Method: Doppler ultrasound FHR Monitoring Frequency: Continuous FHR Baseline: 125 bpm FHR Baseline Description: Normal, 110-160 bpm FHR Baseline Variability: Moderate variability FHR Accelerations: Present 01/25/2019 4:28 EST Monitoring Annotations pt up to bathroom 01/25/2019 4:15 EST Uterine Contraction Monitoring Method External toco Uterine Contraction Description Mild, Occasional contractions FHR Monitoring Method: Doppler ultrasound FHR Monitoring Frequency: Continuous FHR Baseline: 125 bpm FHR Baseline Description: Normal, 110-160 bpm FHR Baseline Variability: Moderate variability FHR Accelerations: Present 01/25/2019 4:00 EST Uterine Contraction Monitoring Method External toco Uterine Contraction Description Mild, Occasional contractions FHR Monitoring Method: Doppler ultrasound FHR Monitoring Frequency: Continuous FHR Baseline: 125 bpm FHR Baseline Description: Normal, 110-160 bpm FHR Baseline Variability: Moderate variability FHR Accelerations: Present 01/25/2019 3:45 EST Uterine Contraction Monitoring Method External toco Uterine Contraction Frequency 2-4 Uterine Contraction Duration 50-70 Uterine Contraction Description Mild FHR Monitoring Method: Doppler ultrasound FHR Monitoring Frequency: Continuous FHR Baseline: 125 bpm FHR Baseline Description: Normal, 110-160 bpm FHR Baseline Variability: Moderate variability FHR Accelerations: Present 01/25/2019 3:30 EST Uterine Contraction Monitoring Method External toco Uterine Contraction Description Mild, Occasional contractions FHR Monitoring Method: Doppler ultrasound FHR Monitoring Frequency: Continuous FHR Baseline: 135 bpm FHR Baseline Description: Normal, 110-160 bpm FHR Baseline Variability: Moderate variability FHR Accelerations: Present 01/25/2019 3:15 EST Uterine Contraction Monitoring Method External toco Uterine Contraction Description Uterine irritability, Occasional contractions 01/25/2019 3:00 EST Uterine Contraction Monitoring Method External toco Uterine Contraction Description Uterine irritability 01/25/2019 2:45 EST Uterine Contraction Monitoring Method External toco Uterine Contraction Frequency 2-3 Uterine Contraction Duration 60-120 Uterine Contraction Description Mild FHR Monitoring Method: Doppler ultrasound FHR Monitoring Frequency: Continuous FHR Baseline: 130 bpm FHR Baseline Description: Normal, 110-160 bpm FHR Baseline Variability: Moderate variability FHR Accelerations: Present 01/25/2019 2:30 EST Uterine Contraction Monitoring Method External toco Uterine Contraction Description Uterine irritability FHR Monitoring Method: Doppler ultrasound FHR Monitoring Frequency: Continuous FHR Baseline: 130 bpm FHR Baseline Description: Normal, 110-160 bpm FHR Baseline Variability: Moderate variability FHR Accelerations: Present 01/25/2019 2:15 EST Uterine Contraction Monitoring Method External toco Uterine Contraction Description Uterine irritability FHR Monitoring Method: Doppler ultrasound FHR Monitoring Frequency: Continuous FHR Baseline: 130 bpm FHR Baseline Description: Normal, 110-160 bpm FHR Baseline Variability: Moderate variability FHR Accelerations: Present 01/25/2019 2:00 EST Uterine Contraction Monitoring Method External toco Uterine Contraction Description Uterine irritability FHR Monitoring Method: Doppler ultrasound FHR Monitoring Frequency: Continuous FHR Baseline: 150 bpm FHR Baseline Description: Normal, 110-160 bpm FHR Baseline Variability: Moderate variability 01/25/2019 1:00 EST Provider Contacted Via Personal communication via phone Provider Response Other: pt may eat and shower; start oxytocin infusion in 1 hour OB Notification Reason Dilation Uterine Contraction Monitoring Method External toco Uterine Contraction Description Uterine irritability FHR Monitoring Method: Doppler ultrasound FHR Monitoring Frequency: Continuous FHR Baseline: 110 bpm FHR Baseline Description: Normal, 110-160 bpm FHR Baseline Variability: Moderate variability 01/25/2019 0:56 EST Monitoring Annotations SVE; Cervidil removed 01/25/2019 0:56 EST Cervix Dilation 1 cm Cervix Effacement 90 Station -2 Station Calculation -2 Cervical Consistency Soft Cervical Position Anterior Rao's Score 9 01/25/2019 0:52 EST Monitoring Annotations pt returned to bed 01/25/2019 0:49 EST Monitoring Annotations pt up to bathroom 01/25/2019 0:45 EST Uterine Contraction Monitoring Method External toco Uterine Contraction Description Uterine irritability FHR Monitoring Method: Doppler ultrasound FHR Monitoring Frequency: Continuous FHR Baseline: 110 bpm FHR Baseline Description: Normal, 110-160 bpm FHR Baseline Variability: Moderate variability FHR Accelerations: Present 01/25/2019 0:44 EST Monitoring Annotations RN evaluation of strip 01/25/2019 0:30 EST Monitoring Annotations RN evaluation of strip 01/25/2019 0:30 EST Uterine Contraction Monitoring Method External toco Uterine Contraction Description Uterine irritability FHR Monitoring Method: Doppler ultrasound FHR Monitoring Frequency: Continuous FHR Baseline: 110 bpm FHR Baseline Description: Normal, 110-160 bpm FHR Baseline Variability: Moderate variability 01/25/2019 0:15 EST Uterine Contraction Monitoring Method External toco Uterine Contraction Description None FHR Monitoring Method: Doppler ultrasound FHR Monitoring Frequency: Continuous FHR Baseline: 110 bpm FHR Baseline Description: Normal, 110-160 bpm FHR Baseline Variability: Moderate variability FHR Accelerations: Present 01/25/2019 0:00 EST Uterine Contraction Monitoring Method External toco Uterine Contraction Description None FHR Monitoring Method: Doppler ultrasound FHR Monitoring Frequency: Continuous FHR Baseline: 110 bpm FHR Baseline Description: Normal, 110-160 bpm FHR Baseline Variability: Moderate variability FHR Accelerations: Present 01/24/2019 23:45 EST Uterine Contraction Monitoring Method External toco Uterine Contraction Description Uterine irritability FHR Monitoring Method: Doppler ultrasound FHR Monitoring Frequency: Continuous FHR Baseline: 115 bpm FHR Baseline Description: Normal, 110-160 bpm FHR Baseline Variability: Moderate variability FHR Accelerations: Present 01/24/2019 23:30 EST Uterine Contraction Monitoring Method External toco Uterine Contraction Description Uterine irritability FHR Monitoring Method: Doppler ultrasound FHR Monitoring Frequency: Continuous FHR Baseline: 110 bpm FHR Baseline Description: Normal, 110-160 bpm FHR Baseline Variability: Moderate variability 01/24/2019 23:15 EST Uterine Contraction Monitoring Method External toco Uterine Contraction Description Occasional contractions FHR Monitoring Method: Doppler ultrasound FHR Monitoring Frequency: Continuous FHR Baseline: 110 bpm FHR Baseline Description: Normal, 110-160 bpm FHR Baseline Variability: Moderate variability FHR Accelerations: Present 01/24/2019 23:00 EST Uterine Contraction Monitoring Method External toco Uterine Contraction Description Uterine irritability FHR Monitoring Method: Doppler ultrasound FHR Monitoring Frequency: Continuous FHR Baseline: 110 bpm FHR Baseline Description: Normal, 110-160 bpm FHR Baseline Variability: Moderate variability 01/24/2019 22:45 EST Uterine Contraction Monitoring Method External toco Uterine Contraction Description Uterine irritability FHR Monitoring Method: Doppler ultrasound FHR Monitoring Frequency: Continuous FHR Baseline: 115 bpm FHR Baseline Description: Normal, 110-160 bpm FHR Baseline Variability: Moderate variability FHR Accelerations: Present 01/24/2019 22:30 EST Uterine Contraction Monitoring Method External toco Uterine Contraction Description Uterine irritability, Occasional contractions FHR Monitoring Method: Doppler ultrasound FHR Monitoring Frequency: Continuous FHR Baseline: 115 bpm FHR Baseline Description: Normal, 110-160 bpm FHR Baseline Variability: Moderate variability FHR Accelerations: Present 01/24/2019 22:15 EST Uterine Contraction Monitoring Method External toco Uterine Contraction Description Uterine irritability FHR Monitoring Method: Doppler ultrasound FHR Monitoring Frequency: Continuous FHR Baseline: 115 bpm FHR Baseline Description: Normal, 110-160 bpm FHR Baseline Variability: Moderate variability FHR Accelerations: Present 01/24/2019 22:00 EST Uterine Contraction Monitoring Method External toco Uterine Contraction Description Uterine irritability, Occasional contractions FHR Monitoring Method: Doppler ultrasound FHR Monitoring Frequency: Continuous FHR Baseline: 115 bpm FHR Baseline Description: Normal, 110-160 bpm FHR Baseline Variability: Moderate variability FHR Accelerations: Present 01/24/2019 21:49 EST Monitoring Annotations pt standing at bedside 01/24/2019 21:45 EST Uterine Contraction Monitoring Method External toco Uterine Contraction Description Uterine irritability FHR Monitoring Method: Doppler ultrasound FHR Monitoring Frequency: Continuous FHR Baseline: 115 bpm FHR Baseline Description: Normal, 110-160 bpm FHR Baseline Variability: Moderate variability FHR Accelerations: Present 01/24/2019 21:30 EST Uterine Contraction Monitoring Method External toco Uterine Contraction Description Uterine irritability FHR Monitoring Method: Doppler ultrasound FHR Monitoring Frequency: Continuous FHR Baseline: 110 bpm FHR Baseline Description: Normal, 110-160 bpm FHR Baseline Variability: Moderate variability FHR Accelerations: Present 01/24/2019 21:15 EST Uterine Contraction Monitoring Method External toco Uterine Contraction Description Uterine irritability FHR Monitoring Method: Doppler ultrasound FHR Monitoring Frequency: Continuous FHR Baseline: 110 bpm FHR Baseline Description: Normal, 110-160 bpm FHR Baseline Variability: Moderate variability FHR Accelerations: Present 01/24/2019 21:00 EST Uterine Contraction Monitoring Method External toco Uterine Contraction Description Uterine irritability FHR Monitoring Method: Doppler ultrasound FHR Monitoring Frequency: Continuous FHR Baseline: 120 bpm FHR Baseline Description: Normal, 110-160 bpm FHR Baseline Variability: Moderate variability FHR Accelerations: Present 01/24/2019 20:45 EST Uterine Contraction Monitoring Method External toco Uterine Contraction Description Uterine irritability FHR Monitoring Method: Doppler ultrasound FHR Monitoring Frequency: Continuous FHR Baseline: 125 bpm FHR Reactive: Yes FHR Baseline Description: Normal, 110-160 bpm FHR Baseline Variability: Moderate variability FHR Accelerations: Present FHR Acceleration Description: Abrupt FHR Deceleration: Absent 01/24/2019 20:30 EST Uterine Contraction Monitoring Method External toco Uterine Contraction Description Uterine irritability, Occasional contractions FHR Monitoring Method: Doppler ultrasound FHR Monitoring Frequency: Continuous FHR Baseline: 125 bpm FHR Reactive: Yes FHR Baseline Description: Normal, 110-160 bpm FHR Baseline Variability: Moderate variability FHR Accelerations: Present FHR Acceleration Description: Abrupt FHR Deceleration: Absent 01/24/2019 20:15 EST Uterine Contraction Monitoring Method External toco Uterine Contraction Description None FHR Monitoring Method: Doppler ultrasound FHR Monitoring Frequency: Continuous FHR Baseline: 125 bpm FHR Reactive: Yes FHR Baseline Description: Normal, 110-160 bpm FHR Baseline Variability: Moderate variability FHR Accelerations: Present FHR Acceleration Description: Abrupt FHR Deceleration: Absent 01/24/2019 20:00 EST Uterine Contraction Monitoring Method External toco Uterine Contraction Description None FHR Monitoring Method: Doppler ultrasound FHR Monitoring Frequency: Continuous FHR Baseline: 125 bpm FHR Reactive: Yes FHR Baseline Description: Normal, 110-160 bpm FHR Baseline Variability: Moderate variability FHR Accelerations: Present FHR Acceleration Description: Abrupt FHR Deceleration: Absent 01/24/2019 19:45 EST A FHR Monitoring Method: Doppler ultrasound FHR Monitoring Frequency: Continuous FHR: 135 bpm 01/24/2019 19:30 EST Uterine Contraction Monitoring Method External toco Uterine Contraction Description Uterine irritability FHR Monitoring Method: Doppler ultrasound FHR Monitoring Frequency: Continuous FHR: 135 bpm 01/24/2019 19:00 EST Uterine Contraction Monitoring Method External toco Uterine Contraction Description Uterine irritability, Occasional contractions FHR Monitoring Method: Doppler ultrasound FHR Monitoring Frequency: Continuous FHR Baseline: 130 bpm FHR Reactive: Yes FHR Baseline Description: Normal, 110-160 bpm FHR Baseline Variability: Moderate variability Impression and Plan Diagnosis Thin meconium stained amniotic fluid ([id number] P96.83, Discharge, Medical). condition: Reassuring heart rate. Maternal condition: Stable. Plan Continue present care. AROM was done with patient consent and without difficulty. Continue pitocin per protocol Epidural if patient desires Dr Grace updated on status Electronically signed by Val Molly WAGONER Kyleigh 01/25/19 10:05 EST Normal [facility] CBC w/ Diffon 01-24-2019 Erythrocyte distribution wid th (RBC) [Ratio] 15.8 % High 11.6-14.8 [facility] Comment on above: Performed By: #### C BC #### [address] [address] Hematocrit (Bld) [Volume fraction] 30.4 % Low 36.0-46.0 [facility] Comment on above: Performed By: #### C BC #### [facility] [address] [place] [address] Hemoglobin (Bld) [Mass/Vol] 10.3 g/dL Low 12.0-16. 0 [facility] Comment on above: Performed By: #### C BC #### [facility] [address] [place] [id number] MCH (RBC) [Entitic mass] 28.0 pg Normal 27.0-35.0 [facility] Comment on above: Performed By: #### C BC #### [facility] [address] [place] [address] MCHC (RBC) [Mass/Vol] 33.8 % Normal 31.0-37.0 [facility] Comment on above: Performed By: #### C BC #### [facility] [address] [place] [address] MCV (RBC) [Entitic vol] 83.0 fL Normal 80.0-100.0 [facility] Comment on above: Performed By: #### C BC #### [facility] [address] [place] [address] Platelet mean volume (Bld) [Entitic vol] 9.3 fL Normal 6.7-10.6 [facility] Comment on above: Performed By: #### C BC #### [facility] [address] [place] [id number] Platelets (Bld) [#/Vol] 114 x10*3/mcL Low 150-350 [facility] Comment on above: Performed By: #### C BC #### [address] [address] RBC (Bld) [#/Vol] 3.67 x10*6/mcL Low 3.80-5.20 [facility] Comment on above: Performed By: #### C BC #### [facility] [address] [place] [address] WBC (Bld) [#/Vol] 13.9 x10*3/mcL High 4.5-11.0 [facility] Comment on above: Performed By: #### C BC #### [address] [address] Diff Autoon 01-24-2019 Baso Absolute 0.0 x10*3/mcL Normal 0.0-0.2 [facility] Comment on above: Performed By: #### . Automated Diff #### [address] [address] Basophils/100 WBC (Bld) 0.3 % Normal 0.0-1.5 [facility] Comment on above: Performed By: #### . Automated Diff #### [address] [address] Eos Absolute 0.0 x10*3/mcL Normal 0.0-0.4 [facility] Comment on above: Performed By: #### . Automated Diff #### [address] [address] Eosinophils/100 WBC (Bld) 0.3 % Normal 0.0-5.4 [facility] Comment on above: Performed By: #### . Automated Diff #### [address] [address] Lymphocytes (Bld) [#/Vol] 1.4 x10*3/mcL Normal 1.2-5.2 [facility] Comment on above: Performed By: #### . Automated Diff #### [address] [address] Lymphocytes/100 WBC (Bld) 10.3 % Low 28.0-42.0 [facility] Comment on above: Performed By: #### . Automated Diff #### [address] [address] [place] Absolute 1.0 x10*3/mcL Normal 0.1-1.1 [facility] Comment on above: Performed By: #### . Automated Diff #### [address] [address] Monocytes/100 WBC (Bld) 6.9 % Normal 3.7-11.9 [facility] Comment on above: Performed By: #### . Automated Diff #### [facility] [address] [place] [address] Neutro Absolute 11.4 x10*3/mcL High 1.8-8.0 [facility] Comment on above: Performed By: #### . Automated Diff #### [facility] [address] [place] [address] Neutro Auto 82.2 % High 45.6-68.4 [facility] Comment on above: Performed By: #### . Automated Diff #### [facility] [address] [place] [address] History and Physicalon 01-24 History and Physical Patient: Iesha Thomas Age: 18 years Sex: Female : 2000 Associated Diagnoses: Mother positive for group B Streptococcus colonization; Prolonged Author: Molly Neal CNM Basic Information Reason for admission: Indication for induction: Patient was in office for monitoring due to 40+ weeks gestation. Was found to have a reactive NST following acoustic stimulation but did have a late deceleration <1 minute long. BPP was done and 10/24. Recommended del due to 40+ weeks gestation with variable deceleration.. Gestational Age: Gestational Age (EGA) and MASOOD * Note: EGA calculated as of 01/24/2019 No EGA/MASOOD calculations have been recorded . History of Present Illness Patient is Para Information: : 0 Para Term: 0 Para : 0 Para Abortions: 0 Para Livin. No exam data has been recorded. . Review of Systems Constitutional: Negative. Eye: Negative. Ear/Nose/Mouth/Throat: Negative. Respiratory: Negative. Cardiovascular: Negative. Breast: Negative. Gastrointestinal: Negative. Genitourinary: Negative. Gynecologic: Negative. Hematology/Lymphatics: Negative. Endocrine/Renal: Negative. Immunologic: Negative. Musculoskeletal: Negative. Integumentary: Negative. Neurologic: Negative. Psychiatric: Negative. All other systems are negative Health Status Allergies: Allergic Reactions (Selected) No Known Allergies Current medications: (Selected) Inpatient Medications Ordered LR 1,000 mL: 125 mL/hr, IV LR Bolus: 1,000 mL, 999 mL/hr, IV Bolus, Once, PRN: other (see comment) Normal Saline Flush 0.9% injectable solution: 10 mL, IV Push, As Indicated, PRN: flush Normal Saline Flush 0.9% injectable solution: 10 mL, IV Push, BID Pepcid: 20 mg, IV Push, Once, PRN: other (see comment) Stadol: 1 mg, IV Push, q1hr, PRN: moderate pain [4-6 on pain scale] Zofran: 4 mg, IV Push, Once, PRN: other (see comment) dinoprostone 10 mg vaginal insert: 10 mg, 1 EA, VAG, Once influenza virus vaccine, inactivated 5+ years old: 0.5 mL, IM, Once lidocaine 1% preservative-free injectable solution: 100 mg, 10 mL, Subcutaneous, Once, PRN: other (see comment) methylergonovine: 0.2 mg, IM, Once, PRN: other (see comment) oxytocin IV additive 30 units + Sodium Chloride 0.9% intravenous solution 500 mL: 333 mL/hr, IV oxytocin IV additive 30 units [2 munit/min] + Sodium Chloride 0.9% intravenous solution 500 mL: 2 mL/hr, IV penicillin G potassium: 2.5 millionunits, 50 mL/hr, IV Piggyback, q4hr penicillin G potassium: 5 millionunits, 100 mL/hr, IV Piggyback, Once sodium citrate-citric acid 500 mg-334 mg/5 mL oral solution: 30 mL, Oral, Once, PRN: other (see comment) terbutaline: 0.25 mg, Subcutaneous, Once, PRN: other (see comment) Histories History History (0,0,0,0) No previous pregnancies history have been recorded Family History: Other Grandmother (M) Procedure history: No active procedure history items have been selected or recorded. Physical Examination VS/Measurements Vital Signs 01/24/2019 11:45 EST Temperature Oral 36.8 degC Heart Rate Monitored 99 bpm Respiratory Rate 16 br/min Systolic Blood Pressure 118 mmHg Diastolic Blood Pressure 70 mmHg , Vital Signs (last 24 hrs) Last Charted Temp Oral 36.8 degC (JAN 24:45) Resp Rate 16 br/min (JAN 24:45) SBP 118 mmHg (JAN 24:45) DBP 70 mmHg (JAN 24:45) Weight 106 kg (JAN 24 11:21) General: Alert and oriented. HENT: Normocephalic. Respiratory: Respirations are non-labored. Cardiovascular: Normal rate. Gastrointestinal: Soft. Obstetric Exam Contractions noted: occasionally. Uterus: consistent with gestational age. [place]/ Baby A evaluation: movement present, heart tones (within normal limits (110 to 160 bpm), rate and rhythm regular, variability moderate (6-25 bpm over baseline)), assessment of heart tracing reassuring heart rate, presentation/ presenting part vertex. Cervix: dilated 1 cm, 50 % effaced, station/ evidence of descent -2, membrane status intact. Musculoskeletal Normal range of motion. Integumentary: Warm, Dry, [place]. Neurologic: Alert, Oriented. Psychiatric: Cooperative. Review / Management OB Results Review Current 01/24/2019 11:21 EST Last Menstrual Period 06/14/2018 Contractions, Subjective No Vaginal Bleeding No Urge To Push, Subjective No Patient Preferred Name Iesha Father of the Baby Name Bettina Primary OB Provider Elisa Elizalde DO Primary OB Provider Elisa Elizalde DO Currently No History No Ed-, 24 Hour Rooming In Verbalizes understanding Ed-, Skin to Skin Verbalizes understanding Blood Type, External A positive Group B Strep, External Positive Movement Present Risk Factors, Antepartum Current Preg Group B Streptococcus Education Never Infant Feeding Exclusive breast milk Infant Feeding Exclusive breast milk Care 4 visits or more Previous Uterine Incision PPH Never Gestation Description PPH [place] Previous Vaginal Deliveries PPH < or = 4 Bleeding Disorder PPH None History of PPH, None Family History of PPH, N/A Induction of labor PPH Yes Cervical Ripening PPH Yes Uterine Fibroids PPH N/A Chorioamnionitis PPH N/A Polyhydramnios PPH N/A Impression and Plan Diagnosis Mother positive for group B Streptococcus colonization ([id number] P00.2, Discharge, Medical). Prolonged ([id number] O48.1, Discharge, Medical). condition: Reassuring heart rate. Maternal condition: Stable. Plan Admit. Discussed with spouse and patient - IOL process. Discussed cervidil for cervical ripening then Pitocin for IOL. Dr Grace is agreeable with plan of care. Education and Follow-up: Counseled: Patient, Family, Regarding diagnosis, Regarding treatment, Regarding medications. Discharge Planning: Plan to discharge ( To home ). Electronically signed by Val Molly WAGONER Kyleigh 01/24/19 12:20 EST Normal [facility] UDS OB/Con 01-24-2019 Creatinine [Mass/Vol] 102.2 mg/dL Normal [facility] Comment on above: Performed By: #### C [id number] #### [address] [address] Ur Amph Scrn w/Conf Negative Normal NEG = <1000 [facility] Comment on above: Performed By: #### C D:[id number] #### [address] [address] Ur Serene Scrn w/Conf Negative Normal NEG = <200 [facility] Comment on above: Performed By: #### C D:[id number] #### [address] [address] Ur Benzodia Scrn w/Conf Negative Normal NEG = <200 [facility] Comment on above: Performed By: #### C D:[id number] #### [address] [address] Ur Cannab Scrn w/Conf Negative Normal NEG = <50 [facility] Comment on above: Performed By: #### C D:[id number] #### [address] [address] Ur Cocaine Scrn w/Conf Negative Normal NEG = <300 [facility] Comment on above: Performed By: #### C D:[id number] #### [address] [address] Ur Methadone Scrn w/Conf Negative Normal NEG = <300 [facility] Comment on above: Performed By: #### C D:[id number] #### [address] [address] Ur Opiate Scrn w/Conf Negative Normal NEG = <300 [facility] Comment on above: Performed By: #### C D:[id number] #### [address] [address] Ur Oxy Screen w/Conf Negative Normal NEG = <100 [facility] Comment on above: Performed By: #### C D:[id number] #### [address] [address] Ur Oxy Scrn Qnt w/Confirm 10 ng/mL Normal <=99 [facility] Comment on above: Performed By: #### C D:[id number] #### [address] [address] Ur PCP Scrn w/Conf Negative Normal NEG = <25 [facility] Comment on above: Performed By: #### C D:[id number] #### [address] [address] Front End Manager TEJAS QC OK Yes Normal [facility] Comment on above: Performed By: #### C D:[id number] #### [address] [address] Ur Buprenorphine Scrn w/Conf Negative Normal NEG = < 10 [facility] Comment on above: Performed By: #### C D:[id number] #### [address] [address] UA pH 6.0 Normal 4.5 - 7.8 [facility] Comment on above: Performed By: #### C D:[id number] #### [address] [address] UA Spec Grav 1.015 Normal 1.003-1.035 [facility] Comment on above: Performed By: #### C D:[id number] #### [address] [place] [address] Grp B PCRon 12-29-2018 Allergic to Penicillin? Unknown Normal B [facility] Comment on above: Result Comment: For antibiotic sensitivity, please contact the Laboratory to request anti-microbial susceptibility testing within 7 days of specimen collection. Performed By: #### C D:[id number] #### [address] [address] Group B Strep PCR Positive Abnormal Negative [facility] Comment on above: Result Comment: Grou p B Strep nucleic acid detected. The Spinelab GBS Assay is an automated nucleic acid extraction and purification Real-Time PCR detection of Streptococcus agalactiae, Group B Strep nucleic acid sequences. A positive result indicates the presence of GBS nucleic acid from CAMERON broth enrichment of vaginal-rectal swab specimens obtained from women. A positive result does not necessarily indicate the presence of viable organisms. Per CDC Recommendation Guidelines, women with positive intrapartum NAAT results for GBS should receive antibiotic prophylaxis with penicillin G, ampicillin, or cefazolin. Reflex susceptibility should be performed prior to use of clindamycin only on GBS isolates from penicillin-allergic women who are considered a high risk for anaphylaxis. Treatment with vancomycin without addtional testing is warranted if resistance to clindamycin is noted. Performed By: #### C D:[id number] #### [address] [address] Cult,Urineon 06-26-2018 Cult,Urine Specimen Description .CLEAN CATCH URINE Special Requests NOT REPORTED Culture NO SIGNIFICANT GROWTH Report Status FINAL 06/25/2018 Normal [facility] Comment on above: Performed By: #### U RC #### [facility] [address] [place] [address] Franchise Broker: Morgan Carlton MD [facility] [address] [place] [address] Franchise Broker: Chano Camacho MD Chlamydia/GC DNA, Uron 06-25 Protein mass conc Negative Normal NEG [facility] Comment on above: Result Comment: CHLA MYDIA TRACHOMATIS DNA not detected by nucleic acid amplification. This test is intended for medical purposes only and is not valid for the evaluation of suspected sexual abuse or for other forensic purposes. In certain contexts, culture may be required to meet applicable laws and regulations for diagnosis of C. trachomatis and N. gonorrhoeae infections. Per 2014 CDC recommendations, this test does not include confirmation of positive results by an alternative nucleic acid target. Performed By: #### U CGP #### [facility] [address] [id number] Franchise Broker: Morgan Carlton MD Result Comment: NEIS SERIA GONORRHOEAE DNA not detected by nucleic acid amplification. This test is intended for medical purposes only and is not valid for the evaluation of suspected sexual abuse or for other forensic purposes. In certain contexts, culture may be required to meet applicable laws and regulations for diagnosis of C. trachomatis and N. gonorrhoeae infections. Per 2014 CDC recommendations, this test does not include confirmation of positive results by an alternative nucleic acid target. HIV Ag/Abon 06-25-2018 HIV Ag/Ab NONREACTIVE Normal [facility] Comment on above: Result Comment: No l aboratory evidence of HIV infection. If acute HIV infection is suspected, consider testing for HIV-1 RNA. Performed By: #### H IVCMB, AHCV #### [place] [id number] Franchise Broker: Morgan Carlton MD Hep C Abon 06-25-2018 Hep C Ab NONREACTIVE Normal [facility] Comment on above: Result Comment: The hepatitis C procedure used in our laboratory is a Chemiluminescent test specific for three recombinant HCV antigens. A negative anti-HCV result indicates that the antibodies to hepatitis C virus are not present at this time. Individuals with reactive anti-HCV should be considered infected and infectious until proven otherwise. Confirmation of all equivocal or reactive results is recommended by ordering HCV RNA by PCR. Performed By: #### H IVCMB, AHCV #### [facility] [address] [place] [id number] Franchise Broker: Morgan Carlton MD Profileon 9 Hep B Surf Ag NONREACTIVE Normal [facility] Comment on above: Performed By: #### P RENAT #### [address] [place] [address] Franchise Broker: Morgan Carlton MD [address] [place] [address] Franchise Broker: Chano Camacho MD Rubella Ab, IgG 61.8 IU/mL Normal [facility] Comment on above: Result Comment: REFERENCE RANGE: <5.0 NON-REACTIVE (non-immune) 5.0 TO 9.9 EQUIVOCAL >=10.0 REACTIVE (immune) Performed By: #### P RENAT #### [address] [address] Franchise Broker: Morgan Carlton MD [address] [place] [address] Franchise Broker: Chano Camacho MD T.pallidum Ab Screen NONREACTIVE Normal [facility] Comment on above: Result Comment: T. pallidum antibodies are not detected. There is no serological evidence of infection with T. pallidum (early primary syphilis cannot be excluded). Retest in 2-4 weeks if syphilis is clinically suspect. Performed By: #### P RENAT #### [address] [address] Franchise Broker: Morgan Carlton MD [address] [place] [address] Franchise Broker: Chano Camacho MD Profileon 9 Abs. Basophil <0.03 Normal 0.00-0.20 [facility] Comment on above: Performed By: #### P RENAT #### [address] [address] Franchise Broker: Morgan Carlton MD [address] [place] [id number] Franchise Broker: Chano Camacho MD Abs.Imm.Granulocyte 0.06 k/uL Normal 0.00-0.30 [facility] Comment on above: Performed By: #### P RENAT #### [address] [address] Franchise Broker: Morgan Carlton MD [address] [place] [phone] Franchise Broker: Chano Camacho MD Abs.Neutrophil (Seg) 8.80 k/uL High 1.80-8.00 [facility] Comment on above: Performed By: #### P RENAT #### [address] [address] Franchise Broker: Morgan Carlton MD [address] [place] [phone] Franchise Broker: Chano Camacho MD Basophils/100 WBC (Bld) 0 % Normal 0-2 [facility] Comment on above: Performed By: #### P RENAT #### [address] [address] Franchise Broker: Morgan Carlton MD [address] [place] [id number] Franchise Broker: Chano Camacho MD Eosinophils #/vol (Bld) 0.03 10*3/uL Normal 0.00-0.44 [facility] Comment on above: Performed By: #### P RENAT #### [address] [address] Franchise Broker: Morgan Carlton MD [address] [place] [address] Franchise Broker: Chano Camacho MD Eosinophils/100 WBC (Bld) 0 % Low 1-4 [facility] Comment on above: Performed By: #### P RENAT #### [address] [address] Franchise Broker: Morgan Carlton MD [address] [place] [phone] Franchise Broker: Chano Camacho MD Erythrocyte distribution wid th Ratio (RBC) 12.5 % Normal 11.8-14.4 [facility] Comment on above: Performed By: #### P RENAT #### [address] [address] Franchise Broker: Morgan Carlton MD [address] [place] [phone] Franchise Broker: Chano Camacho MD Hematocrit Volume Fraction (Bld) 42.0 % Normal 36. 3-47.1 [facility] Comment on above: Performed By: #### P RENAT #### [address] [address] Franchise Broker: Morgan Carlton MD [address] [place] [address] Franchise Broker: Chano Camacho MD Hemoglobin mass conc (Bld) 14.0 g/dL Normal 11.9-15.1 [facility] Comment on above: Performed By: #### P RENAT #### [address] [address] Franchise Broker: Morgan Carlton MD [address] [place] [address] Franchise Broker: Chano Camacho MD Immature granulocytes #/vol (Bld) 1 % High 0 [facility] Comment on above: Performed By: #### P RENAT #### [address] [address] Franchise Broker: Morgan Carlton MD [address] [place] [address] Franchise Broker: Chano Camacho MD Lymphocytes #/vol (Bld) 1.61 10*3/uL Normal 1.20-5.20 [facility] Comment on above: Performed By: #### P RENAT #### [address] [address] Franchise Broker: Morgan Carlton MD [address] [place] [phone] Franchise Broker: Chano Camacho MD Lymphocytes/100 WBC (Bld) 14 % Low 25-45 [facility] Comment on above: Performed By: #### P RENAT #### [address] [address] Franchise Broker: Morgan Carlton MD [address] [place] [phone] Franchise Broker: Chano Camacho MD MCH Entitic mass (RBC) 29.7 pg Normal 25.2-33.5 [facility] Comment on above: Performed By: #### P RENAT #### [address] [address] Franchise Broker: Morgan Carlton MD [address] [place] [phone] Franchise Broker: Chano Camacho MD MCHC mass conc (RBC) 33.3 g/dL Normal 28.4-34.8 [facility] Comment on above: Performed By: #### P RENAT #### [address] [address] Franchise Broker: Morgan Carlton MD [address] [place] [phone] Franchise Broker: Chano Camacho MD MCV Entitic volume (RBC) 89.0 fL Normal 82.6-102.9 [facility] Comment on above: Performed By: #### P RENAT #### [address] [address] Franchise Broker: Morgan Carlton MD [address] [place] [phone] Franchise Broker: Chano Camacho MD Monocytes #/vol (Bld) 0.73 10*3/uL Normal 0.10-1.40 [facility] Comment on above: Performed By: #### P RENAT #### [address] [address] Franchise Broker: Morgan Carlton MD [address] [place], [place] 3293383 Franchise Broker: Chano Camacho MD Monocytes/100 WBC (Bld) 7 % Normal 2-8 [facility] Comment on above: Performed By: #### P RENAT #### [address] [address] Franchise Broker: Morgan Carlton MD [address] [place] [phone] Franchise Broker: Chano Camacho MD Neutrophil (Seg) 78 % High 34-64 [facility] Comment on above: Performed By: #### P RENAT #### [address] [address] Franchise Broker: Morgan Carlton MD [address] [place] [phone] Franchise Broker: Chano Camacho MD NRBC Automated 0.0 per 100 WBC Normal 0.0 [facility] Comment on above: Performed By: #### P RENAT #### [address] [address] Franchise Broker: Morgan Carlton MD [address] [place] [phone] Franchise Broker: Chano Camacho MD Platelet mean volume Entitic volume (Bld) 10.6 fL Normal 8.1-13.5 [facility] Comment on above: Performed By: #### P RENAT #### [address] [address] Franchise Broker: Morgan Carlton MD [address] [place] [address] Franchise Broker: Chano Camacho MD Platelets #/vol (Bld) 193 10*3/uL Normal 138-453 [facility] Comment on above: Performed By: #### P RENAT #### [address] [address] Franchise Broker: Morgan Carlton MD [address] [place] [phone] Franchise Broker: Chano Camacho MD RBC #/vol (Bld) 4.72 10*6/uL Normal 3.95-5.11 [facility] Comment on above: Performed By: #### P RENAT #### [address] [address] Franchise Broker: Morgan Carlton MD [address] [place] [phone] Franchise Broker: Chano Camacho MD WBC #/vol (Bld) 11.3 10*3/uL Normal 4.5-13.5 [facility] Comment on above: Performed By: #### P RENAT #### [address] [address] Franchise Broker: Morgan Carlton MD [address] [place] [phone] Franchise Broker: Chano Camacho MD Auto Diff Performed NOT REPORTED Normal [facility] Comment on above: Performed By: #### P RENAT #### [address] [address] Franchise Broker: Morgan Carlton MD [address] [place] [phone] Franchise Broker: Chano Camacho MD Platelets #/vol (Bld) NOT REPORTED Normal [facility] Comment on above: Performed By: #### P RENAT #### [address] [address] Franchise Broker: Morgan Carlton MD [facility] [address] [place] [address] Dr[place], [place] [phone] Franchise Broker: Chano Camacho MD RBC morphology finding Nom (Bld) NOT REPORTED Normal [facility] Comment on above: Performed By: #### P RENAT #### [place] [address] [place], [place] [phone] Franchise Broker: Morgan Carlton MD [facility] [address] [place] [address] [place], [place] 5124783 Franchise Broker: Chano Camacho MD WBC Morphology NOT REPORTED Normal [facility] Comment on above: Performed By: #### P RENAT #### [address] [address] Franchise Broker: Morgan Carlton MD [address] [place] [phone] Franchise Broker: Chano Camacho MD Type + Scrnon 06-24 Type + Scrn Negative [facility] Comment on above: Performed By: #### P RTYS #### [address] [place], [place] 9077483 Franchise Broker: Chano Camacho MD Toxicology Scree, Urineon Amphetamine(s),Ur Negative Normal NEG [facility] Comment on above: Performed By: #### C PDAU #### [address] [place], [place] [phone] Franchise Broker: Chano Camacho MD Barbiturate(s),Ur Negative Normal NEG [facility] Comment on above: Performed By: #### C PDAU #### [address] [place], [place] 4943383 Franchise Broker: Chano Camacho MD Benzodiazepine(s) Negative Normal NEG [facility] Comment on above: Performed By: #### C PDAU #### [facility] [address] [place] [address] Dr. [place], [place] [phone] Franchise Broker: Chano Camacho MD Buprenorphrine, Ur Negative Normal NEG [facility] Comment on above: Performed By: #### C PDAU #### [facility] [address] [place], [place] [phone] Franchise Broker: Chano Camacho MD Cannabinoid(s),Ur Negative Normal [facility] Comment on above: Performed By: #### C PDAU #### [facility] [address] [place], [place] [phone] Franchise Broker: Chano Camacho MD Cocaine Metabolite Negative Normal [facility] Comment on above: Performed By: #### C PDAU #### [facility] [address] [place], [place] [phone] Franchise Broker: Chano Camacho MD Methadone Ql (U) Negative Normal [facility] Comment on above: Performed By: #### C PDAU #### [facility] [address] [place], [place] 8643883 Franchise Broker: Chano Camacho MD Methamphetamine, Ur Negative [facility] Comment on above: Performed By: #### C PDAU #### [facility] [address] [place], [place] [phone] Franchise Broker: Chano Camacho MD Opiate(s), Ur Negative Normal [facility] Comment on above: Performed By: #### C PDAU #### [facility] [address] [place], [place] 1243683 Franchise Broker: Chano Camacho MD Oxycodone, Urine Negative Normal NEG [facility] Comment on above: Performed By: #### C PDAU #### [facility] [address] [place], [place] 7352683 Franchise Broker: Chano Camacho MD Phencyclidine, Ur Negative Normal [facility] Comment on above: Performed By: #### C PDAU #### [facility] [address] [place], [place] 0811183 Franchise Broker: Chano Camacho MD Protein mass conc (U) Negative Normal NEG [facility] Comment on above: Performed By: #### C PDAU #### [facility] [address] [place], [place] 7776983 Franchise Broker: Chano Camacho MD Tricyclic antidepressants Screen Ql (U) Negative Normal NEG [facility] Comment on above: Result Comment: Drug screen results are to be used for medical purposes only. All positive results are unconfirmed. Testing for employment or legal uses should be sent to a reference laboratory for confirmation. Performed By: #### C PDAU #### [facility] [address] [place], [place] [phone] Franchise Broker: Chano Camacho MD Interpretive Info NOT REPORTED Normal [facility] Comment on above: Performed By: #### C PDAU #### [facility] [address] [place], [place] [phone] Franchise Broker: Chano Camacho MD MDMA, Urine NOT REPORTED Normal NEG [facility] Comment on above: Performed By: #### C PDAU #### [facility] [address] [place], [place] [phone] Franchise Broker: Chano Camacho MD Encounters Encounter Date Encounter Type Care Provider Facility Start: 02-05-2023 End: 02-06-2023 ambulatory HOOD L FLORO Not Available Start: 01-23-2023 End: 01-24-2023 ambulatory HOOD L FLORO Not Available Start: 03-26-2020 End: 03-27-2020 Patient encounter procedure LA MALDONADO Facility:[facility] Start: 10-01-2019 End: 10-02-2019 Patient encounter procedure DRAGAN Herrera MERCED Facility:[facility] Start: 01-24-2019 End: 01-27-2019 Evaluation and management of inpatient ELISA MIXON SIDDHARTHA VILLAGOMEZ Facility:[facility] Start: 06-24-2018 End: 06-25-2018 Patient encounter procedure SOHEILA MEHTA [facility] Start: 06-24-2018 End: 06-24-2018 Patient encounter procedure SOHEILAALBERTO MEHTA [facility] Procedures Date Procedure Procedure Detail Performing Clinician Start: 06-24-2018 C.TRACHOMATIS N.GONO RRHOEAE DNA, URINE SOHEILA MEHTA Start: 06-24-2018 Culture bacterial qu anttative colony count urine SOHEILA MEHTA Start: 06-24-2018 Drug screen, qualitate/multi SOHEILA MEHTA Start: 06-24-2018 Antibody hiv-1&hiv-2 single result SOHEILA MEHTA Start: 06-24-2018 Hepatitis c antibody APONTE ARNOLDO MEHTA Start: 06-24-2018 Obstetric panel SOHEILA Carlson BA Start: 06-24-2018 TYPE AND SCREEN SOHEILA MEHTA Payers Date Payer Category Payer Unknown [id number] 2018 Unknown 2012 Unknown [id number] 1998 Unknown [id number] 2.16.8 [id number] 1998 Unknown [id number] 2.16.8 [id number] 1998 Unknown [id number] 2.16.8 [id number] 1998 Unknown [id number] 2.16.84 [id number] 1998 Unknown [id number] 1998 Unknown [id number] 1959 Self-pay Unknown [id number] 2.16.84 [id number] Summary Purpose Family History No Family History Records FoundNo Family History Records FoundNo Family History Records FoundNo Family History Records Found Advance Directives No Advanced Directives Records FoundNo Advanced Directives Records FoundNo Advanced Directives Records FoundNo Advanced Directives Records Found Hospital Course Note Patient: Iesha Thomas Age: 18 years Sex: Female : 2000 Associated Diagnoses: Thin meconium stained amniotic fluid; Prolonged ; Post-op pain; Mother positive for group B Streptococcus colonization Author: William ERVIN, [place] Beard Results Review Labor/ Delivery Summary Results Review Problems (Active Problems Only) (SNOMED CT: [id number], Onset: 06/14/18) Delivery Summary A Membrane Status Information ROM Date/Time: 01/25/19 10:00:00 ROM Type: Artificial rupture of membranes Amniotic Fluid Color/Description: Thin meconium Labor Information Labor Onset Methods: Elective induction Induction Methods: Artificial rupture of membranes, Dinoprostone, Oxytocin infusion Monitoring FHR Monitoring Method: External wireless Delivery Information Delivery Type: Date/Time of : 01/25/19 20:56:00 Placenta Delivery Date/Time: 01/25/19 20:57:00 Placenta Delivery Method: Manual extraction Placenta to Pathology: No C (more content not included)... Additional Source Comments INFORMATION SOURCE (unrecogn ized section and content) DATE CREATED AUTHOR 06/26/2018 [facility] DATE CREATED AUTHOR AUTHOR'S ORGANIZ ATION 04/28/2019 [facility] DATE CREATED AUTHOR AUTHOR'S ORGANIZ ATION 04/01/2020 [facility] DATE CREATED AUTHOR AUTHOR'S ORGANIZ ATION 02/10/2023 [facility] FOR RECORDS PERTAINING TO PATIENTS WHO ARE OR HAVE BEEN ENROLLED IN A CHEMICAL DEPENDENCY/SUBSTANCEABUSE PROGRAM, SOME INFORMATION MAY BE OMITTED. This clinical summary was aggregated from multiple sources. Caution should be exercised in using it in the provision of clinical care. This summary normalizes information from multiple sources, and as a consequence, information in this document may materially change the coding, format and clinical context of patient data. In addition, data may be omitted in some cases. CLINICAL DECISIONS SHOULD BE BASED ON THE PRIMARY CLINICAL RECORDS. [facility] [employer] [facility]. provides no warranty or guarantee of the accuracy or completeness of information in this document.
== END 2023-01-29 15:35 | disposition home or self-care (01) ==
PROVIDERS: PCP Internal Medicine; Visit Provider Obstetrics & Gynecology
DX: Z39.2 Encounter for routine postpartum follow-up (principal)

== ENCOUNTER 2023-04-10 14:27 | Outpatient (OUT) | payer OTHER, SELFPAY ==
--- NOTE | 2023-04-10 14:30 | US_ITS ---
The [address] [address] Patient Name: BRIEN EARL MRN: [id number] date: 2000 Sex: F Assigned Patient Location: US Current Patient Location: US Accession/Order Number: [id number] Exam Date: 04/10/2023 14:30 Report Date: 04/10/2023 15:39 At the request of: VALENCIA ROBERSON Procedure: US pelvis transvaginal EXAMINATION: US pelvis transvaginal HISTORY: PELVIC PAIN, IUD PLACEMENT COMPARISON: No relevant comparison available. FINDINGS: The uterus is normal in size, contour and echotexture measuring 8.7 x 4.5 x 4.5 cm. The uterus is anteverted, retroflexed. The endometrium measures 3 mm. Linear hyperechogenicity is identified along the lower uterine segment extending into the internal cervical os The right ovary is normal measuring 3.1 x 1.6 x 1.9 cm. Normal color Doppler flow The left ovary is not visualized No free fluid These findings were relayed to Dr. Roberson by the technologist at the time of exam US/US pelvis transvaginal IMPRESSION: Low position of the IUD along the lower uterine segment/internal cervical os Electronically authenticated by: BERNIE CHINO Date: 04/10/2023 15:39
--- OUTSIDE RECORDS SUMMARY | 2023-04-10 14:31 | XMS_ITS | CCD ---
Author Name Unknown Address [address] [place] [id number] Organization [facility] Care Team Providers Care Technical Associate Name Role Phone SOHEILA MEHTA Referring Unavailabl e HIESTAND, DRAGAN Herrera Primary Care Unavailable SOHEILA MEHTA Referring Unavailabl e HIESTAND, DRAGAN Herrera Primary Care Unavailable ELISA RUVALCABA Admitting Unav ailable ELISA RUVALCABA Attending Unav ailable DRAGAN BLACKWOOD Admitting Unavailable DRAGAN BLACKWOOD Consulting Unavailable DRAGAN BLACKWOOD Attending Unavailable ERICALA OSWALD Admitting Unavailable ERICALA GAYLE Consulting Unavailable ERICALA GAYLE Attending Unavailable HOOD AMADOR Attending Unavailable FLORO, HOOD Sweeney Attending Unavailable FLOROHOOD Attending Unavailable FLORO, HOOD Sweeney Attending Unavailable Problems Active Problems Problem Classification [...] Results Test Name Value Interpretation Reference Range Facility HEPATITIS B SURFACE ANTIBODY , QUANTon 03-30-2020 Hepatitis B Surf AB Quant <3.1 Critically low Immunity>9.9 [facility] Comment on above: Result Comment: Stat us of Immunity Anti-HBs Level Inconsistent with Immunity 0.0 - 9.9 Consistent with Immunity >9.9 Performed By: #### H EPBSRF #### [facility] [address] [place] [address] Darya Camejo MMR IMMUNITYon 03-30-2020 Mumps Abs, IgG 23.7 AU/mL Normal Immune >10.9 [facility] [place] Comment on above: Result Comment: Nega tive <9.0 Equivocal 9.0 - 10.9 Positive >10.9 A positive result generally indicates past exposure to Mumps virus or previous vaccination. Performed By: #### M MRIMMU #### [facility] [address] [place] [address] Darya Camejo Rubella Antibodies, IgG 1.71 index Normal Immune >0.99 [facility] Comment on above: Result Comment: Non- immune <0.90 Equivocal 0.90 - 0.99 Immune >0.99 Performed By: #### M MRIMMU #### [facility] [address] [place] [address] Darya Camejo Rubeola Ab, IgG 82.4 AU/mL Normal Immune >16.[address] [facility] Comment on above: Result Comment: Nega tive <13.5 Equivocal 13.5 - 16.4 Positive >16.4 Presence of antibodies to Rubeola is presumptive evidence of immunity except when acute infection is suspected. Performed By: #### M MRIMMU #### [facility] [address] [place] [address] Darya Camejo QUANTIFERON TB GOLD PLUS (NO N-INC)on 03-30-2020 Comment Incubation performed. Normal [facility] Comment on above: Performed By: #### Q NTTBG #### [facility] [address] [place] [address] Darya Camejo Criteria Comment Normal [facility] Comment on above: Result Comment: The QuantiFERON-TB Gold Plus result is determined by subtracting the Nil value from either TB antigen (Ag) tube. The mitogen tube serves as a control for the test. Performed By: #### Q NTTBG #### [facility] [address] [place] [address] Darya Camejo Mitogen Value >10.00 Normal [facility] Comment on above: Performed By: #### Q NTTBG #### [facility] [address] [place] [address] Darya Camejo Nill Value 0.03 IU/mL Normal [facility] Comment on above: Performed By: #### Q NTTBG #### [facility] [address] [place] [address] Darya Camejo Quantiferon Gold Plus Negative Normal Negative [facility] Comment on above: Performed By: #### Q NTTBG #### [facility] [address] [place] [address] Darya Camejo TB1 Ag Value 0.02 IU/mL Normal [facility] Comment on above: Performed By: #### Q NTTBG #### [facility] [address] [place] [address] Darya Judgeen TB2 Ag Value 0.03 IU/mL Normal [facility] Comment on above: Performed By: #### Q NTTBG #### [facility] [address] [place] [address] Darya Camejo VARICELLA IGG ABon 1 Varicella Zoster IgG <135 Critically low Immune >165 [facility] Comment on above: Result Comment: Nega tive <135 Equivocal 135 - 165 Positive >165 A positive result generally indicates exposure to the pathogen or administration of specific immunoglobulins, but it is not indication of active infection or stage of disease. Performed By: #### V JAIME #### [facility] [address] [place] [address] Darya Camejo COVID-19 PCRon 10-04-2019 SARS-CoV-2, DYLAN Not Detected Normal Not Detected [facility] Comment on above: Result Comment: This test was developed and its performance characteristics determined by [employer]. This test has not been FDA cleared [...] assay. Performed By: #### C VDPCR #### [facility] [address] [place], [place] [address] Darya Oglesby & Aga RAMIREZ 04-28-2019 Chlamydia, DNA Negative Normal Negative [facility] Comment on above: Result Comment: The [...] Performed By: #### . Automated Diff #### [facility] [address] [place] [address] Gonorrhea, DNA Negative Normal Negative [facility] Comment on above: Result Comment: The [...] Performed By: #### . Automated Diff #### [place] [address] Operative Reporton Operative Report Patient: Iesha Thomas Age: 18 years Sex: Female : 2000 Associated Diagnoses: None Author: Elisa Elizalde DO Preop: IUP at term Suspected CPD Persistent OP presentation Nonreassuring heart tones Post op: Same Procedure: Primary low transverse Surgeon: Elisa Elizalde D.O. Asst: Molly Neal C.N.M. Anesthesia: epidural EBL: 600 cc Fluids: LR [...] was doubly clamped and cut, and the infant was handed off to the nurses for [...] Elisa Elizalde DO 02/03/19 15:45 EST Normal [facility] CBC w/ Diffon 01-27-2019 Erythrocyte distribution width (RBC) [Ratio] 15.8 % High 11.6-14.8 [facility] Comment on above: Performed By: #### . Automated Diff #### [address] [address] Hematocrit (Bld) [Volume fraction] 26.5 % Low 36.0-46.0 [facility] Comment on above: Performed By: #### . Automated Diff #### [address] [address] Hemoglobin (Bld) [Mass/Vol] 8.6 g/dL Low 12.0-16.0 [facility] Comment on above: Performed By: #### . Automated Diff #### [address] [address] MCH (RBC) [Entitic mass] 27.3 pg Normal 27.0-35.0 [facility] Comment on above: Performed By: #### . Automated Diff #### [address] [address] MCHC (RBC) [Mass/Vol] 32.5 % Normal 31.0-37.0 [facility] Comment on above: Performed By: #### . Automated Diff #### [address] [address] MCV (RBC) [Entitic vol] 83.9 fL Normal 80.0-100.0 [facility] Comment on above: Performed By: #### . Automated Diff #### [address] [address] Platelet mean volume (Bld) [Entitic vol] 9.3 fL Normal 6.7-10.6 [facility] Comment on above: Performed By: #### . Automated Diff #### [address] [address] Platelets (Bld) [#/Vol] 131 x10*3/mcL Low 150-350 [facility] Comment on above: Performed By: #### . Automated Diff #### [address] [address] RBC (Bld) [#/Vol] 3.16 x10*6/mcL Low 3.80-5.20 [facility] Comment on above: Performed By: #### . Automated Diff #### [address] [address] WBC (Bld) [#/Vol] 13.3 x10*3/mcL High 4.5-11.0 [facility] Comment on above: Performed By: #### . Automated Diff #### [address] [address] Diff Autoon 01-27-2019 Baso Absolute 0.0 x10*3/mcL Normal 0.0-0.2 [facility] Comment on above: Performed By: #### . Automated Diff #### [address] [address] Basophils/100 WBC (Bld) 0.1 % Normal 0.0-1.5 [facility] Comment on above: Performed By: #### . Automated Diff #### [address] [address] Eos Absolute 0.1 x10*3/mcL Normal 0.0-0.4 [facility] Comment on above: Performed By: #### . Automated Diff #### [address] [address] Eosinophils/100 WBC (Bld) 0.4 % Normal 0.0-5.4 [facility] Comment on above: Performed By: #### . Automated Diff #### [address] [address] Lymphocytes (Bld) [#/Vol] 2.0 x10*3/mcL Normal 1.2-5.2 [facility] Comment on above: Performed By: #### . Automated Diff #### [address] [address] Lymphocytes/100 WBC (Bld) 14.7 % Low 28.0-42.0 [facility] Comment on above: Performed By: #### . Automated Diff #### [address] [address] Pine Absolute 1.5 x10*3/mcL High 0.1-1.1 [facility] Comment on above: Performed By: #### . Automated Diff #### [address] [address] Monocytes/100 WBC (Bld) 11.4 % Normal 3.7-11.9 [facility] Comment on above: Performed By: #### . Automated Diff #### [address] [address] Neutro Absolute 9.8 x10*3/mcL High 1.8-8.0 [facility] Comment on above: Performed By: #### . Automated Diff #### [address] [address] Neutro Auto 73.4 % High 45.6-68.4 [facility] Comment on above: Performed By: #### . Automated Diff #### [facility] [address] [place] [address] Inpatient Clinical Summaryon 01-27-2019 Inpatient Clinical Summary [address] [address] Clinical Summary Person Information Name: Iesha Thomas Age: 18 Years : 2000 Sex: Female PCP: Marital Status: Single PCP: Race: White Ethnicity: Not or Language: Albanian Visit Id: Visit Reason: IUP Speciality: Acuity: PP C/S Enc Type: Inpatient Med Service: Gynecology-Obstetrics Arrival: 01/24/2019 10:56:00 Discharge: Dispo Type: Address: [address] [place] [address] [place] [address] Diagnosis: Mother positive for group B Streptococcus [...] range between ( 28.0 and 42.0 ) Pine Auto: 11.4 % -- Normal range between [...] range between ( 36.0 and 46.0 ) Pine Absolute: 1.5 x10 MCH: 27.3 pg -- [...] Documented This Visit New Medications [facility], [address] [place], [place] [id number], [phone] docusate (Doculase 100 mg oral capsule) 1 Capsules Oral (given by mouth) 2 times a day. Refills: 0. Last Dose: ____ ibuprofen (ibuprofen 800 mg oral tablet) 800 Milligram Oral (given by mouth) every 8 hours standard times as needed as needed for pain. Refills: 0. Last Dose: ____ oxyCODONE-acetaminoph en (oxyCODONE-acetaminop hen 5 mg-325 mg oral tablet) 1 Tabs Oral (given by mouth) every 4 hours as needed moderate pain [4-6 on pain scale] for 7 Days. Refills: 0. Last Dose: ____ Care Team Members: Attending Physician: Elisa Elizalde DO Consulting Physician: Referring Physician: Follow up: [facility] Obstetrics Progress Noteon 1 03-29-2018 Obstetrics [...] Known Allergies Problem list: All Problems / [id number] / Confirmed, Problems (Active Problems Only) (SNOMED CT: 111247629, Onset: 06/14/18) Physical Examination VS/Measurements Vital Signs [...] care. Diagnosis Thin meconium stained amniotic fluid ([id number]-RO P96.83, Discharge, Medical). Prolonged (NEZ14-UW O48.1, Discharge, Medical). Post-op pain (OSJ26-UN G89.18, Discharge, Medical). Mother positive for group B Streptococcus colonization (FUV85-MU P00.2, Discharge, Medical). Course: Progressing as expected, d/c home. Electronically signed by William ERVIN, Elmira Beard 01/27/19 10:36 EST Normal [facility] CBC w/ Diffon 01-26-2019 Erythrocyte distribution width (RBC) [Ratio] 15.8 % High 11.6-14.8 [facility] Comment on above: Performed By: #### . Automated Diff #### [address] [address] Hematocrit (Bld) [Volume fraction] 31.4 % Low 36.0-46.0 [facility] Comment on above: Performed By: #### . Automated Diff #### [address] [address] Hemoglobin (Bld) [Mass/Vol] 10.2 g/dL Low 12.0-16.0 [facility] Comment on above: Performed By: #### . Automated Diff #### [address] [address] MCH (RBC) [Entitic mass] 27.4 pg Normal 27.0-35.0 [facility] Comment on above: Performed By: #### . Automated Diff #### [address] [address] MCHC (RBC) [Mass/Vol] 32.6 % Normal 31.0-37.0 [facility] Comment on above: Performed By: #### . Automated Diff #### [address] [address] MCV (RBC) [Entitic vol] 84.1 fL Normal 80.0-100.0 [facility] Comment on above: Performed By: #### . Automated Diff #### [address] [address] Platelet mean volume (Bld) [Entitic vol] 9.4 fL Normal 6.7-10.6 [facility] Comment on above: Performed By: #### . Automated Diff #### [address] [address] Platelets (Bld) [#/Vol] 152 x10*3/mcL Normal 150-350 [facility] Comment on above: Performed By: #### . Automated Diff #### [address] [address] RBC (Bld) [#/Vol] 3.73 x10*6/mcL Low 3.80-5.20 [facility] Comment on above: Performed By: #### . Automated Diff #### [address] [address] WBC (Bld) [#/Vol] 22.8 x10*3/mcL High 4.5-11.0 [facility] Comment on above: Performed By: #### . Automated Diff #### [address] [address] Diff Autoon 01-26-2019 Baso Absolute 0.0 x10*3/mcL Normal 0.0-0.2 [facility] Comment on above: Performed By: #### . Automated Diff #### [address] [address] Basophils/100 WBC (Bld) 0.1 % Normal 0.0-1.5 [facility] Comment on above: Performed By: #### . Automated Diff #### [address] [address] Eos Absolute 0.0 x10*3/mcL Normal 0.0-0.4 [facility] Comment on above: Performed By: #### . Automated Diff #### [address] [address] Eosinophils/100 WBC (Bld) 0.0 % Normal 0.0-5.4 [facility] Comment on above: Performed By: #### . Automated Diff #### [address] [address] Lymphocytes (Bld) [#/Vol] 0.7 x10*3/mcL Low 1.2-5.2 [facility] Comment on above: Performed By: #### . Automated Diff #### [address] [address] Lymphocytes/100 WBC (Bld) 2.9 % Low 28.0-42.0 [facility] Comment on above: Performed By: #### . Automated Diff #### [address] [address] Pine Absolute 1.0 x10*3/mcL Normal 0.1-1.1 [facility] Comment on above: Performed By: #### . Automated Diff #### [address] [address] Monocytes/100 WBC (Bld) 4.2 % Normal 3.7-11.9 [facility] Comment on above: Performed By: #### . Automated Diff #### [address] [address] Neutro Absolute 21.2 x10*3/mcL High 1.8-8.0 [facility] Comment on above: Performed By: #### . Automated Diff #### [address] [address] Neutro Auto 92.8 % High 45.6-68.4 [facility] Comment on above: Performed By: #### . Automated Diff #### [address] [address] Obstetrics Progress Noteon 1 03-28-2018 Obstetrics Progress [...] (JAN 26) Resp Rate 18 br/min (JAN 26) SBP 118 mmHg (JAN 26:) DBP 61 mmHg (JAN 26) SpO2 94 % (NOV 10 01:30) CBC showed significant elevation in WBC and [...] CBC tomorrow morning. Electronically signed by Val Molly WAGONER 01/26/19 10:04 EST Normal [facility] CBC w/ Diffon 01-25-2019 Erythrocyte distribution width (RBC) [Ratio] 15.9 % High 11.6-14.8 [facility] Comment on above: Performed By: #### C BC #### [facility] [address] [place] [address] Hematocrit (Bld) [Volume fraction] 30.6 % Low 36.0-46.0 [facility] Comment on above: Performed By: #### C BC #### [facility] [address] [place] [address] Hemoglobin (Bld) [Mass/Vol] 10.2 g/dL Low 12.0-16.0 [facility] Comment on above: Performed By: #### C BC #### [facility] [address] [place] [address] MCH (RBC) [Entitic mass] 28.0 pg Normal 27.0-35.0 [facility] Comment on above: Performed By: #### C BC #### [address] [address] MCHC (RBC) [Mass/Vol] 33.3 % Normal 31.0-37.0 [facility] Comment on above: Performed By: #### C BC #### [address] [address] MCV (RBC) [Entitic vol] 84.1 fL Normal 80.0-100.0 [facility] Comment on above: Performed By: #### C BC #### [address] [address] Platelet mean volume (Bld) [Entitic vol] 9.2 fL Normal 6.7-10.6 [facility] Comment on above: Performed By: #### C BC #### [address] [address] Platelets (Bld) [#/Vol] 150 x10*3/mcL Normal 150-350 [facility] Comment on above: Performed By: #### C BC #### [address] [address] RBC (Bld) [#/Vol] 3.64 x10*6/mcL Low 3.80-5.20 [facility] Comment on above: Performed By: #### C BC #### [address] [address] WBC (Bld) [#/Vol] 17.0 x10*3/mcL High 4.5-11.0 [facility] Comment on above: Performed By: #### C BC #### [address] [address] Diff Autoon 01-25-2019 Baso Absolute 0.0 x10*3/mcL Normal 0.0-0.2 [facility] Comment on above: Performed By: #### . Automated Diff #### [address] [address] Basophils/100 WBC (Bld) 0.0 % Normal 0.0-1.5 [facility] Comment on above: Performed By: #### . Automated Diff #### [address] [address] Eos Absolute 0.0 x10*3/mcL Normal 0.0-0.4 [facility] Comment on above: Performed By: #### . Automated Diff #### [address] [address] Eosinophils/100 WBC (Bld) 0.1 % Normal 0.0-5.4 [facility] Comment on above: Performed By: #### . Automated Diff #### [address] [address] Lymphocytes (Bld) [#/Vol] 1.6 x10*3/mcL Normal 1.2-5.2 [facility] Comment on above: Performed By: #### . Automated Diff #### [address] [address] Lymphocytes/100 WBC (Bld) 9.5 % Low 28.0-42.0 [facility] Comment on above: Performed By: #### . Automated Diff #### [address] [address] Pine Absolute 1.5 x10*3/mcL High 0.1-1.1 [facility] Comment on above: Performed By: #### . Automated Diff #### [address] [address] Monocytes/100 WBC (Bld) 9.0 % Normal 3.7-11.9 [facility] Comment on above: Performed By: #### . Automated Diff #### [address] [address] Neutro Absolute 13.8 x10*3/mcL High 1.8-8.0 [facility] Comment on above: Performed By: #### . Automated Diff #### [address] [address] Neutro Auto 81.4 % High 45.6-68.4 [facility] Comment on above: Performed By: #### . Automated Diff #### [facility] [address] [place] [address] Obstetrics Progress Noteon 1 03-27-2018 Obstetrics Progress [...] list: Problems (Active Problems Only) (SNOMED CT: 237662634, Onset: 06/14/18) Physical Examination VS/Measurements Vital Signs [...] Normal range of motion. Integumentary: Warm, Dry, [place]. Neurologic: Alert, Oriented. Psychiatric: Cooperative. Review / [...] condition: Stable. Plan . Was notified at 1915 by RN that infant had prolonged deceleration with moderate variability and periods of marked variability in the midst. After deceleration - heart tones were returning to baseline with 3 recurrent early decelerations. Oxygen was applied, Pitocin was turned off per RN. I let RN know that I would come evaluate patient. I arrived at bedside to evaluate at 1950. SVE was performed and we discussed caput present, tracing with deceleration, and concern for CPD and OP presentation. Patient was agreeable for c/s at this time. Team - anesthesia, Dr Grace, and surgical attendant were notified by community coordinator at 2007 for a planned 2044 c/s. Consents were obtained. Electronically signed by Val WAGONERMolly Kyleigh 01/25/19 20:35 EST Normal [facility] Obstetrics Progress Note Patient: Iesha Thomas [...] Review of Systems Constitutional: Negative. Eye: Negative. Ear/Nose/Mouth/Throat : Negative. Respiratory: Negative. Cardiovascular: Negative. Breast: Negative. Gastrointestinal: Negative. Genitourinary: Negative, Morrow catheter in place. Gynecologic: Negative. Hematology/Lymphatics : Negative. Endocrine/Renal: Negative. Immunologic: Negative. Musculoskeletal: Negative. Integumentary: Negative. Neurologic: Negative. Psychiatric: Negative. Health Status Problem list: Problems (Active Problems Only) (SNOMED CT: 292120422, Onset: 06/14/18) Physical Examination VS/Measurements Vital Signs [...] amniotic fluid (meconium, leaking). Integumentary: Warm, Dry, [place]. Neurologic: Alert, Oriented. Psychiatric: Cooperative. Review / [...] Moderate variability 01/25/2019 14:57 EST Monitoring Annotations Yousif WAGONER updated on status of pt, review of [...] rupture of membranes ROM Performed By: Molly Nela CNM ROM Confirmed By: Visual pool Amniotic [...] Molly Neal CNM 01/25/19 16:40 EST Normal [facility] Obstetrics Progress Note Patient: Iesha Thomas [...] Review of Systems Constitutional: Negative. Eye: Negative. Ear/Nose/Mouth/Throat : Negative. Respiratory: Negative. Cardiovascular: Negative. Breast: Negative. Gastrointestinal: Negative. Genitourinary: Negative. Gynecologic: Negative. Hematology/Lymphatics : Negative. Endocrine/Renal: Negative. Immunologic: Negative. Musculoskeletal: Negative. Integumentary: Negative. Neurologic: Negative. Psychiatric: Negative. All other systems are negative Health Status Problem list: Problems (Active Problems Only) (SNOMED CT: 269130807, Onset: 06/14/18) Physical Examination VS/Measurements Vital Signs (last 24 hrs) Last Charted Temp Oral 36.8 degC (JAN 24 11:45) Resp Rate 16 br/min (JAN 25:15) SBP 107 mmHg (JAN 25:15) DBP L [...] Normal range of motion. Integumentary: Warm, Dry, [place]. Neurologic: Alert, Oriented. Psychiatric: Cooperative. Review / [...] Plan Diagnosis Thin meconium stained amniotic fluid ([id number] P96.83, Discharge, Medical). condition: Reassuring heart rate. Maternal condition: Stable. Plan Continue present care. AROM was done with patient consent and without difficulty. Continue pitocin per protocol Epidural if patient desires Dr Grace updated on status Electronically signed by Val Molly WAGONER 01/25/19 10:05 EST Normal [facility] CBC w/ Diffon 01-24-2019 Erythrocyte distribution width (RBC) [Ratio] 15.8 % High 11.6-14.8 [facility] Comment on above: Performed By: #### C BC #### [address] [address] Hematocrit (Bld) [Volume fraction] 30.4 % Low 36.0-46.0 [facility] Comment on above: Performed By: #### C BC #### [address] [address] Hemoglobin (Bld) [Mass/Vol] 10.3 g/dL Low 12.0-16.0 [facility] Comment on above: Performed By: #### C BC #### [address] [address] MCH (RBC) [Entitic mass] 28.0 pg Normal 27.0-35.0 [facility] Comment on above: Performed By: #### C BC #### [address] [address] MCHC (RBC) [Mass/Vol] 33.8 % Normal 31.0-37.0 [facility] Comment on above: Performed By: #### C BC #### [address] [address] MCV (RBC) [Entitic vol] 83.0 fL Normal 80.0-100.0 [facility] Comment on above: Performed By: #### C BC #### [address] [address] Platelet mean volume (Bld) [Entitic vol] 9.3 fL Normal 6.7-10.6 [facility] Comment on above: Performed By: #### C BC #### [address] [address] Platelets (Bld) [#/Vol] 114 x10*3/mcL Low 150-350 [facility] Comment on above: Performed By: #### C BC #### [address] [address] RBC (Bld) [#/Vol] 3.67 x10*6/mcL Low 3.80-5.20 [facility] Comment on above: Performed By: #### C BC #### [address] [address] WBC (Bld) [#/Vol] 13.9 x10*3/mcL High 4.5-11.0 [facility] Comment on above: Performed By: #### C BC #### [address] [address] Diff Autoon 01-24-2019 Baso Absolute 0.0 x10*3/mcL Normal 0.0-0.2 [facility] Comment on above: Performed By: #### . Automated Diff #### [address] [address] [address] Basophils/100 WBC (Bld) 0.3 % Normal 0.0-1.5 [facility] Comment on above: Performed By: #### . Automated Diff #### [address] [address] Eos Absolute 0.0 x10*3/mcL Normal 0.0-0.4 [facility] Comment on above: Performed By: #### . Automated Diff #### [address] [address] Eosinophils/100 WBC (Bld) 0.3 % Normal 0.0-5.4 [facility] Comment on above: Performed By: #### . Automated Diff #### [address] [address] Lymphocytes (Bld) [#/Vol] 1.4 x10*3/mcL Normal 1.2-5.2 [facility] Comment on above: Performed By: #### . Automated Diff #### [address] [address] Lymphocytes/100 WBC (Bld) 10.3 % Low 28.0-42.0 [facility] Comment on above: Performed By: #### . Automated Diff #### [address] [address] Pine Absolute 1.0 x10*3/mcL Normal 0.1-1.1 [facility] Comment on above: Performed By: #### . Automated Diff #### [address] [address] Monocytes/100 WBC (Bld) 6.9 % Normal 3.7-11.9 [facility] Comment on above: Performed By: #### . Automated Diff #### [facility] [address] [place] [address] Neutro Absolute 11.4 x10*3/mcL High 1.8-8.0 [facility] Comment on above: Performed By: #### . Automated Diff #### [facility] [address] [place] [address] Neutro Auto 82.2 % High 45.6-68.4 [facility] Comment on above: Performed By: #### . Automated Diff #### [facility] [address] [place] [address] History and Physicalon 01-24 History and Physical [...] Review of Systems Constitutional: Negative. Eye: Negative. Ear/Nose/Mouth/Throat : Negative. Respiratory: Negative. Cardiovascular: Negative. Breast: Negative. Gastrointestinal: Negative. Genitourinary: Negative. Gynecologic: Negative. Hematology/Lymphatics : Negative. Endocrine/Renal: Negative. Immunologic: Negative. Musculoskeletal: Negative. [...] Normal range of motion. Integumentary: Warm, Dry, [place]. Neurologic: Alert, Oriented. Psychiatric: Cooperative. Review / [...] Current Preg Group B Streptococcus Education Never Feeding Exclusive breast milk Infant Feeding Exclusive [...] Mother positive for group B Streptococcus colonization (SEV97-LH P00.2, Discharge, Medical). Prolonged (OLV57-BF O48.1, Discharge, Medical). condition: Reassuring heart rate. [...] Molly WAGONER Kyleigh 01/24/19 12:20 EST Normal [facility] UDS OB/Con 01-24-2019 Creatinine [Mass/Vol] 102.2 mg/dL Normal [facility] Comment on above: Performed By: #### C [id number] #### [address] [address] Ur Amph Scrn w/Conf Negative Normal NEG = <1000 [facility] Comment on above: Performed By: #### C [id number] #### [address] [address] Ur Serene Scrn w/Conf Negative Normal NEG = <200 [facility] Comment on above: Performed By: #### C D:[id number] #### [address] [address] Ur Benzodia Scrn w/Conf Negative Normal NEG = <200 [facility] Comment on above: Performed By: #### C [id number] #### [address] [address] Ur Cannab Scrn w/Conf Negative Normal NEG = <50 [facility] Comment on above: Performed By: #### C D:[id number] #### [address] [address] Ur Cocaine Scrn w/Conf Negative Normal NEG = <300 [facility] Comment on above: Performed By: #### C D:[id number] #### [address] [place] [address] Ur Methadone Scrn w/Conf Negative Normal NEG = <300 [facility] Comment on above: Performed By: #### C D:[id number] #### [address] [address] Ur Opiate Scrn w/Conf Negative Normal NEG = <300 [facility] Comment on above: Performed By: #### C D:[id number] #### [address] [address] Ur Oxy Screen w/Conf Negative Normal NEG = <100 [facility] Comment on above: Performed By: #### C [id number] #### [address] [address] Ur Oxy Scrn Qnt w/Confirm 10 ng/mL Normal <=99 [facility] Comment on above: Performed By: #### C D:[id number] #### [address] [address] Ur PCP Scrn w/Conf Negative Normal NEG = <25 [facility] Comment on above: Performed By: #### C D:[id number] #### [address] [address] [employer] TEJAS [place] Yes Normal [facility] Comment on above: Performed By: #### C D:[id number] #### [address] [address] Ur Buprenorphine Scrn w/Conf Negative Normal NEG = <10 [facility] Comment on above: Performed By: #### C [id number] #### [address] [address] UA pH 6.0 Normal 4.5 - 7.8 [facility] Comment on above: Performed By: #### C D:[id number] #### [address] [address] UA Spec Grav 1.015 Normal 1.003-1.035 [facility] Comment on above: Performed By: #### C D:[id number] #### [place] [address] [place] [address] Grp B PCRon 12-29-2018 Allergic to Penicillin? Unknown Normal [facility] Comment on above: Result Comment: For antibiotic sensitivity, please contact the Laboratory to request anti-microbial susceptibility testing within 7 days of specimen collection. Performed By: #### C D:[id number] #### [address] [address] Group B Strep PCR Positive Abnormal Negative [facility] Comment on above: Result Comment: Grou p B Strep nucleic acid detected. The BeiZ GBS Assay is an automated nucleic acid [...] clindamycin is noted. Performed By: #### C D:[id number] #### [address] [address] Cult,Urineon 06-26-2018 Cult,Urine Specimen Description .CLEAN CATCH URINE Special Requests NOT REPORTED Culture NO SIGNIFICANT GROWTH Report Status FINAL 06/25/2018 Normal [facility] Comment on above: Performed By: #### U RC #### [facility] [address] [place] [address] Residential Team Leader: Morgan Carlton MD [facility] [address] [place] [address] Residential Team Leader: Chano Camacho MD Chlamydia/GC DNA, Uron 06-25 Protein mass conc Negative Normal NEG [facility] Comment on above: Result Comment: CHLA MYDIA [...] target. Performed By: #### U CGP #### [facility] [address] [place] [address] [phone] Residential Team Leader: Morgan Carlton MD Result Comment: NEIS SERIA [...] HIV Ag/Abon 06-25-2018 HIV Ag/Ab NONREACTIVE Normal [facility] Comment on above: Result Comment: No l aboratory evidence of HIV infection. If acute HIV infection is suspected, consider testing for HIV-1 RNA. Performed By: #### H IVCMB, AHCV #### [facility] [address] [place] [phone] Residential Team Leader: Morgan Carlton MD Hep C Abon 06-25-2018 Hep C Ab NONREACTIVE Normal [facility] Comment on above: Result Comment: The hepatitis [...] Performed By: #### H IVCMB, AHCV #### [facility] [address] [place] [address] [phone] Residential Team Leader: Morgan Carlton MD Profileon 9 Hep B Surf Ag NONREACTIVE Normal [facility] Comment on above: Performed By: #### P RENAT #### [facility] [address] [place] [phone] Residential Team Leader: Morgan Carlton MD [address] [place] [address] Residential Team Leader: Chano Camacho MD Rubella Ab, IgG 61.8 IU/mL Normal [facility] Comment on above: Result Comment: REFERENCE RANGE: <5.0 NON-REACTIVE (non-immune) 5.0 TO 9.9 EQUIVOCAL >=10.0 REACTIVE (immune) Performed By: #### P RENAT #### [address] [address] Residential Team Leader: Morgan Carlton MD [address] [place] [address] Residential Team Leader: Chano Camacho MD T.pallidum Ab Screen NONREACTIVE Normal [facility] Comment on above: Result Comment: T. pallidum antibodies are not detected. There is no serological evidence of infection with T. pallidum (early primary syphilis cannot be excluded). Retest in 2-4 weeks if syphilis is clinically suspect. Performed By: #### P RENAT #### [address] [address] Residential Team Leader: Morgan Carlton MD [facility] [address] [place], [place] [address]R[place] [address] Residential Team Leader: Chano Camacho MD Profileon 9 Abs. Basophil <0.03 Normal 0.00-0.20 [facility] Comment on above: Performed By: #### P RENAT #### [address] [address] Residential Team Leader: Morgan Carlton MD [facility] [address] [place], [place] [address]Rc [place] [phone] Residential Team Leader: Chano Camacho MD Abs.Imm.Granulocyte 0.06 k/uL Normal 0.00-0.30 [facility] Comment on above: Performed By: #### P RENAT #### [address] [address] Residential Team Leader: Morgan Carlton MD [address] [place] [phone] Residential Team Leader: Chano Camacho MD Abs.Neutrophil (Seg) 8.80 k/uL High 1.80-8.00 [facility] Comment on above: Performed By: #### P RENAT #### [address] [address] Residential Team Leader: Morgan Carlton MD [address] [place] [phone] Residential Team Leader: Chano Camacho MD Basophils/100 WBC (Bld) 0 % Normal 0-2 [facility] Comment on above: Performed By: #### P RENAT #### [address] [address] Residential Team Leader: Morgan Carlton MD [address] [place] [address] Residential Team Leader: Chano Camacho MD Eosinophils #/vol (Bld) 0.03 10*3/uL Normal 0.00-0.44 [facility] Comment on above: Performed By: #### P RENAT #### [address] [address] Residential Team Leader: Morgan Carlton MD [address] [place] [address] Residential Team Leader: Chano Camacho MD Eosinophils/100 WBC (Bld) 0 % Low 1-4 [facility] Comment on above: Performed By: #### P RENAT #### [address] [address] Residential Team Leader: Morgan Carlton MD [address] [place] [phone] Residential Team Leader: Chano Camacho MD Erythrocyte distribution width Ratio (RBC) 12.5 % Normal 11.8-14.4 [facility] Comment on above: Performed By: #### P RENAT #### [address] [address] Residential Team Leader: Morgan Carlton MD [facility] [address] [place] [address] Dr. [place] [phone] Residential Team Leader: Chano Camacho MD Hematocrit Volume Fraction (Bld) 42.0 % Normal 36.3-47.1 [facility] Comment on above: Performed By: #### P RENAT #### [address] [address] Residential Team Leader: Morgan Carlton MD [address] [place] [phone] Residential Team Leader: Chano Camacho MD Hemoglobin mass conc (Bld) 14.0 g/dL Normal 11.9-15.1 [facility] Comment on above: Performed By: #### P RENAT #### [address] [address] Residential Team Leader: Morgan Carlton MD [address] [place] [address] Residential Team Leader: Chano Camacho MD Immature granulocytes #/vol (Bld) 1 % High 0 [facility] Comment on above: Performed By: #### P RENAT #### [address] [address] Residential Team Leader: Morgan Carlton MD [address] [place] [phone] Residential Team Leader: Chano Camacho MD Lymphocytes #/vol (Bld) 1.61 10*3/uL Normal 1.20-5.20 [facility] Comment on above: Performed By: #### P RENAT #### [address] [address] Residential Team Leader: Morgan Carlton MD [facility] [address] [place] [address] Dr[place] [phone] Residential Team Leader: Chano Camacho MD Lymphocytes/100 WBC (Bld) 14 % Low 25-45 [facility] Comment on above: Performed By: #### P RENAT #### [address] [address] Residential Team Leader: Morgan Carlton MD [address] [place] [phone] Residential Team Leader: Chano Camacho MD MCH Entitic mass (RBC) 29.7 pg Normal 25.2-33.5 [facility] Comment on above: Performed By: #### P RENAT #### [address] [address] Residential Team Leader: Morgan Carlton MD [address] [place] [phone] Residential Team Leader: Chano Camacho MD MCHC mass conc (RBC) 33.3 g/dL Normal 28.4-34.8 [facility] Comment on above: Performed By: #### P RENAT #### [address] [address] Residential Team Leader: Morgan Carlton MD [address] [place] [phone] Residential Team Leader: Chano Camacho MD MCV Entitic volume (RBC) 89.0 fL Normal 82.6-102.9 [facility] Comment on above: Performed By: #### P RENAT #### [address] [address] Residential Team Leader: Morgan Carlton MD [address] [place] [address] Residential Team Leader: Chano Camacho MD Monocytes #/vol (Bld) 0.73 10*3/uL Normal 0.10-1.40 [facility] Comment on above: Performed By: #### P RENAT #### [place] [address] [place] [address] Residential Team Leader: Morgan Carlton MD [facility] [address] [place] [address] [place], [place] [phone] Residential Team Leader: Chano Camacho MD Monocytes/100 WBC (Bld) 7 % Normal 2-8 [facility] Comment on above: Performed By: #### P RENAT #### [address] [address] Residential Team Leader: Morgan Carlton MD [facility] [address] [place] [address] [place] [phone] Residential Team Leader: Chano Camacho MD Neutrophil (Seg) 78 % High 34-64 [facility] Comment on above: Performed By: #### P RENAT #### [address] [address] Residential Team Leader: Morgan Carlton MD [facility] [address] [place] [address] [place] [phone] Residential Team Leader: Chano Camacho MD NRBC Automated 0.0 per 100 WBC Normal 0.0 [facility] Comment on above: Performed By: #### P RENAT #### [address] [address] Residential Team Leader: Morgan Carlton MD [facility] [address] [place] [address] [place] [address] Residential Team Leader: Chano Camacho MD Platelet mean volume Entitic volume (Bld) 10.6 fL Normal 8.1-13.5 [facility] Comment on above: Performed By: #### P RENAT #### [address] [address] Residential Team Leader: Morgan Carlton MD [facility] [address] [place] [address] [place] [phone] Residential Team Leader: Chano Camacho MD Platelets #/vol (Bld) 193 10*3/uL Normal 138-453 [facility] Comment on above: Performed By: #### P RENAT #### [facility] [address] [place] [address] Residential Team Leader: Morgan Carlton MD [address] [place], [place] [phone] Residential Team Leader: Chano Camacho MD RBC #/vol (Bld) 4.72 10*6/uL Normal 3.95-5.11 [facility] Comment on above: Performed By: #### P RENAT #### [address] [address] Residential Team Leader: Morgan Carlton MD [address] [place] [address] Residential Team Leader: Chano Camacho MD WBC #/vol (Bld) 11.3 10*3/uL Normal 4.5-13.5 [facility] Comment on above: Performed By: #### P RENAT #### [address] [address] Residential Team Leader: Morgan Carlton MD [address] [place] [phone] Residential Team Leader: Chano Camacho MD Auto Diff Performed NOT REPORTED Normal [facility] Comment on above: Performed By: #### P RENAT #### [address] [address] Residential Team Leader: Morgan Carlton MD [address] [place] [address] Residential Team Leader: Chano Camacho MD Platelets #/vol (Bld) NOT REPORTED Normal [facility] Comment on above: Performed By: #### P RENAT #### [address] [address] Residential Team Leader: Morgan Carlton MD [facility] [address] [place] [address] Dr[place], [place] [phone] Residential Team Leader: Chano Camacho MD RBC morphology finding Nom (Bld) NOT REPORTED Normal [facility] Comment on above: Performed By: #### P RENAT #### [facility] [address] [place] [address] Residential Team Leader: Morgan Carlton MD [address] [place], [place] [phone] Residential Team Leader: Chano Camacho MD WBC Morphology NOT REPORTED Normal [facility] Comment on above: Performed By: #### P RENAT #### [facility] [address] [place] [address] Residential Team Leader: Morgan Carlton MD [address] [place] [phone] Residential Team Leader: Chano Camacho MD Type + Scrnon 06-24 Type + Scrn Negative [facility] Comment on above: Performed By: #### P RTYS #### [address] [place], [place] [phone] Residential Team Leader: Chano Camacho MD Toxicology Scree, Urineon Amphetamine(s),Ur Negative Normal NEG [facility] Comment on above: Performed By: #### C PDAU #### [address] [place], [place] [phone] Residential Team Leader: Chano Camacho MD Barbiturate(s),Ur Negative Normal NEG [facility] Comment on above: Performed By: #### C PDAU #### [address] [place], [place] [phone] Residential Team Leader: Chano Camacho MD Benzodiazepine(s) Negative Normal NEG [facility] Comment on above: Performed By: #### C PDAU #### [address] [place], [place] [phone] Residential Team Leader: Chano Camacho MD Buprenorphrine, Ur Negative Normal [facility] Comment on above: Performed By: #### C PDAU #### [facility] [address] [place], [place] [phone] Residential Team Leader: Chano Camacho MD Cannabinoid(s),Ur Negative Normal NEG [facility] Comment on above: Performed By: #### C PDAU #### [facility] [address] [place], [place] [phone] Residential Team Leader: Chano Camacho MD Cocaine Metabolite Negative Normal [facility] Comment on above: Performed By: #### C PDAU #### [facility] [address] [place], [place] [phone] Residential Team Leader: Chano Camacho MD Methadone Ql (U) Negative Normal [facility] Comment on above: Performed By: #### C PDAU #### [facility] [address] [place], [place] [phone] Residential Team Leader: Chano Camacho MD Methamphetamine, Ur Negative [facility] Comment on above: Performed By: #### C PDAU #### [facility] [address] [place], [place] [phone] Residential Team Leader: Chano Camacho MD Opiate(s), Ur Negative Normal [facility] Comment on above: Performed By: #### C PDAU #### [facility] [address] [place], [place] [phone] Residential Team Leader: Chano Camacho MD Oxycodone, Urine Negative Normal NEG [facility] Comment on above: Performed By: #### C PDAU #### [facility] [address] [place] [address] Residential Team Leader: Chano Camacho MD Phencyclidine, Ur Negative Normal [facility] Comment on above: Performed By: #### C PDAU #### [facility] [address] [place], [place] [phone] Residential Team Leader: Chano Camacho MD Protein mass conc (U) Negative Normal NEG [facility] Comment on above: Performed By: #### C PDAU #### [facility] [address] [place], [place] [phone] Residential Team Leader: Chano Camacho MD Tricyclic antidepressants Screen Ql (U) Negative Normal NEG [facility] Comment on above: Result Comment: Drug screen results are to be used for medical purposes only. All positive results are unconfirmed. Testing for employment or legal uses should be sent to a reference laboratory for confirmation. Performed By: #### C PDAU #### [facility] [address] [place], [place] [phone] Residential Team Leader: Chano Camacho MD Interpretive Info NOT REPORTED Normal [facility] Comment on above: Performed By: #### C PDAU #### [facility] [address] [place], [place] [phone] Residential Team Leader: Chano Camacho MD MDMA, Urine NOT REPORTED Normal NEG [facility] Comment on above: Performed By: #### C PDAU #### [facility] [address] [place] [address] Residential Team Leader: Chano Camacho MD Encounters Encounter Date Encounter Type Care Provider Facility Start: 03-28-2023 End: 03-29-2023 ambulatory HOOD L FLORO Not Available Start: 03-06-2023 End: 03-07-2023 ambulatory HOOD L FLORO Not Available Start: 02-05-2023 End: 02-06-2023 ambulatory HOOD L FLORO Not Available Start: 01-23-2023 End: 01-24-2023 ambulatory HOOD L FLORO Not Available Start: 03-26-2020 End: 03-27-2020 Patient encounter procedure LA MALDONADO Facility:[facility] Start: 10-01-2019 End: 10-02-2019 Patient encounter procedure RENOSharon BLACKWOOD Facility:[facility] Start: 01-24-2019 End: 01-27-2019 Evaluation and management of inpatient ELISA VILLAOGMEZ Facility:[facility] Start: 06-24-2018 End: 06-25-2018 Patient encounter procedure SOHEILA MEHTA [facility] Start: 06-24-2018 End: 06-24-2018 Patient encounter procedure SOHEILA MEHTA [facility] Procedures Date Procedure Procedure Detail Performing Clinician Start: 06-24-2018 C.TRACHOMATIS N.GONO RRHOEAE DNA, URINE SOHEILA MEHTA Start: 06-24-2018 Culture bacterial qu anttative colony count urine SOHEILA MEHTA Start: 06-24-2018 Drug screen, qualitate/multi SOHEILA MEHTA Start: 06-24-2018 Antibody hiv-1&hiv-2 single result SOHEILA MEHTA Start: 06-24-2018 Hepatitis c antibody FAY VILLANUEVA Start: 06-24-2018 Obstetric panel SOHEILA Carlson [facility] Start: 06-24-2018 TYPE AND SCREEN SOHEILA MEHTA Payers Date Payer Category Payer Unknown [id number] 2022 Unknown [id number] 2018 Unknown 2012 Unknown [id number] 1998 Unknown [id number] 2.16.8 [id number] 1998 Unknown [id number] 2.16.8 [id number] 1998 Unknown [id number] 2.16.8 [id number] 1998 Unknown [id number] 2.16.84 [id number] 1998 Unknown [id number] 2.16.84 [id number] 1998 Unknown [id number] 2.16.840 [id number] 1998 Unknown [id number] 2.16.840 [id number] 1998 Unknown [id number] [id number] 1959 Self-pay Unknown [id number] 2.16.84 [id number] Summary Purpose Family History No Family History [...] Review Problems (Active Problems Only) (SNOMED CT: [id number], Onset: 06/14/18) Delivery Summary A Membrane Status [...] section and content) DATE CREATED AUTHOR 06/26/2018 Bertha [place]as [facility] DATE CREATED AUTHOR AUTHOR'S ORGANIZ ATION 04/28/2019 [facility] DATE CREATED AUTHOR AUTHOR'S ORGANIZ ATION 04/01/2020 [facility] DATE CREATED AUTHOR AUTHOR'S ORGANIZ ATION 04/01/2023 [facility] FOR RECORDS PERTAINING TO PATIENTS WHO ARE [...] BE BASED ON THE PRIMARY CLINICAL RECORDS. [employer] [facility]. provides no warranty or guarantee of the accuracy or completeness of information in this document.
== END 2023-04-10 14:28 | disposition home or self-care (01) ==
LOC: US 14:27
PROVIDERS: PCP Internal Medicine; Visit Provider Obstetrics & Gynecology
DX: R10.2 Pelvic and perineal pain (principal); Z30.430 Encounter for insertion of intrauterine contraceptive device
CPT/HCPCS: 76830

== ENCOUNTER 2023-05-15 11:20 | Outpatient (OUT) | payer OTHER, SELFPAY ==
--- NOTE | 2023-05-15 11:22 | US_ITS ---
[address] [address] Patient Name: BRIEN EARL MRN: [id number] date: 2000 Sex: F Assigned Patient Location: [facility] Current Patient Location: [facility] Accession/Order Number: [id number] Exam Date: 05/15/2023 11:23 Report Date: 05/15/2023 12:01 At the request of: VALENCIA SOLORZANO Procedure: US pelvis transvaginal EXAMINATION: US pelvis transvaginal HISTORY: PELVIC PAIN, IUD PLACEMENT COMPARISON: 04/10/2023 FINDINGS: Transvaginal images The uterus is normal in size, contour and myometrial echotexture measuring 7.0 x 4.1 x 5.8 cm. Anteverted, anteflexed. The endometrium measures 10 mm, normal. Linear hyperechogenicity is identified along the lower uterine segment and cervix consistent with the IUD The right ovary is normal measuring 2.7 x 1.9 x 2.1 cm. Normal color and Doppler flow. Normal follicles. The left ovary measures 2.8 x 1.3 x 2.1 cm. Resistive index could not be obtained No free fluid US/US pelvis transvaginal IMPRESSION: Low position of the IUD along the lower uterine segment and cervix Electronically authenticated by: BERNIE CHINO Date: 05/15/2023 12:01
== END 2023-05-15 11:21 | disposition home or self-care (01) ==
LOC: NOMS 11:20
PROVIDERS: PCP Internal Medicine; Visit Provider Obstetrics & Gynecology
DX: R10.2 Pelvic and perineal pain (principal); Z97.5 Presence of (intrauterine) contraceptive device
CPT/HCPCS: 76830

== ENCOUNTER 2023-06-21 09:03 | Outpatient (OUT) | payer OTHER, SELFPAY ==
--- NOTE | 2023-06-21 09:06 | US_ITS ---
[address] [address] Patient Name: BRIEN EARL MRN: [id number] date: 2000 Sex: F Assigned Patient Location: [facility] Current Patient Location: [facility] Accession/Order Number: [id number] Exam Date: 06/21/2023 09:06 Report Date: 06/21/2023 10:15 At the request of: VALENCIA SOLORZANO Procedure: US pelvis transvaginal EXAMINATION: US pelvis transvaginal HISTORY: PELVIC PAIN, IUD PLACEMENT COMPARISON: Ultrasound pelvis 05/15/2023, 04/10/2023 TECHNIQUE: Transabdominal and/or transvaginal sonographic examination was performed as indicated by examination type. FINDINGS: UTERUS: Normal size and appearance. Uterus size: 8.1 x 3.6 x 5.8 cm ENDOMETRIUM: Normal homogeneous appearance. IUD within lower uterine segment. Endometrial thickness: 3 mm RIGHT OVARY: Normal size and appearance. Duplex Doppler demonstrates normal waveform and flow; resistive index 0.5. Ovary size: 3.4 x 1.9 x 2.2 cm LEFT OVARY: Normal size and appearance. Duplex Doppler demonstrates normal waveform and flow; resistive index 0.6. Ovary size: 2.7 x 1.5 x 2.1 cm CUL-DE-SAC: Unremarkable. No significant free fluid. BLADDER: Unremarkable. OTHER: None. US/US pelvis transvaginal IMPRESSION: 1. Grossly stable IUD within lower uterine endometrial cavity. No overtly suspicious findings. Electronically authenticated by: DEMETRIUS DOSHI Date: 06/21/2023 10:15
--- OUTSIDE RECORDS SUMMARY | 2023-06-21 09:22 | XMS_ITS | CCD ---
Author Organization [facility] Care Team Providers Care Blister Rust Eradicator Name Role Phone SOHEILA MEHTA Referring Unavailabl e HIESTDRAGAN MCCARTHY Primary Care Unavailable SOHEILA MEHTA Referring Unavailabl e DRAGAN BLACKWOOD Primary Care Unavailable ELISA RUVALCABA Admitting Unav ailable ELISA RUVALCABA Attending Unav ailable HIESTDRAGAN MCCARTHY Admitting Unavailable DRAGAN BLACKWOOD Consulting Unavailable DRAGAN BLACKWOOD Attending Unavailable LA MALDONADO Admitting Unavailable LA MALDONADO Consulting Unavailable LA MALDONADO Attending Unavailable HOOD TIWARI Attending Unavailable VALENCIA SOLORZANO Attending Unavailable HOOD TIWARI Attending Unavailable HOOD TIWARI Attending Unavailable HOOD TIWARI Attending Unavailable Floro Hood WAGONER Unavailable Dragan Blackwood MD Primary Care Provider Medications Completed/Discontinued Medications Medication Drug Class(es) Dates Sig (Normalized) Sig (Original) miSOPROStol 0.2 mg oral tablet (2 sources) Prostaglandin E1 Analog Start: 03-06-2023 End: 03-28-2023 take 1 tablet by mouth once miSOPROStol (Cytotec) 200 MCG tablet Indications: Unwanted fertility Take 1 tablet (200 mcg) by mouth 1 (one) time for 1 dose Take 1 tablet po the evening before IUD procedure is scheduled 1 tablet 0 03/06/2023 03/28/2023 Discontinued (Therapy completed) Problems Active Problems Problem Classification Problem Date Documented Da te Episodic/Chronic Administrative/social admission (4 sources) Encounter for pre-employment examination; Translations: [ENCOUNTER FOR PRE-EMPLOYMENT EXAM] Onset: 03-26-2020 Episodic Contraceptive and procreative management (2 sources) Unwanted fertility ; Translations: [Encounter for other general counseling and advice on contraception] 03-06-2023 Episodic Menstrual disorders (1 source) Amenorrhea, unspecified; [...] Surf AB Quant <3.1 Critically low Immunity>9.9 [facility] Comment on above: Result Comment: Stat us of Immunity Anti-HBs Level Inconsistent with Immunity 0.0 - 9.9 Consistent with Immunity >9.9 Performed By: #### H EPBSRF #### [facility] [address] [place], [place] [id number] Darya Camejo MMR IMMUNITYon 03-30-2020 Mumps Abs, IgG 23.7 AU/mL Normal Immune >10.[address] [facility] Comment on above: Result Comment: Nega tive <9.0 Equivocal 9.0 - 10.9 Positive >10.9 A positive result generally indicates past exposure to Mumps virus or previous vaccination. Performed By: #### M MRIMMU #### [facility] [address] [place], [place] [address] Darya Nell Rubella Antibodies, IgG 1.71 index Normal Immune >0.99 [facility] Comment on above: Result Comment: Non- immune <0.90 Equivocal 0.90 - 0.99 Immune >0.99 Performed By: #### M MRIMMU #### [facility] [address] [place], [place] [address] Darya Camejo Rubeola Ab, IgG 82.4 AU/mL Normal Immune >16.4 [facility] Comment on above: Result Comment: Nega tive <13.5 Equivocal 13.5 - 16.4 Positive >16.4 Presence of antibodies to Rubeola is presumptive evidence of immunity except when acute infection is suspected. Performed By: #### M MRIMMU #### [facility] [address] [place] [address] Darya Nell QUANTIFERON TB GOLD PLUS (NO N-INC)on 03-30-2020 Comment Incubation performed. Normal [facility] Comment on above: Performed By: #### Q NTTBG #### [facility] [address] [place] [address] Darya Nell Criteria Comment Normal [facility] Comment on above: Result Comment: The QuantiFERON-TB Gold Plus result is determined by subtracting the Nil value from either TB antigen (Ag) tube. The mitogen tube serves as a control for the test. Performed By: #### Q NTTBG #### [facility] [address] [place] [address] Darya Nell Mitogen Value >10.00 Normal [facility] Comment on above: Performed By: #### Q NTTBG #### [facility] [address] [place] [address] Darya Nell Nill Value 0.03 IU/mL Normal [facility] Comment on above: Performed By: #### Q NTTBG #### [facility] [address] [place] [address] Darya Nell Quantiferon Gold Plus Negative Normal Negative [facility] Comment on above: Performed By: #### Q NTTBG #### [facility] [address] [place] [address] Darya Nell TB1 Ag Value 0.02 IU/mL Normal [facility] Comment on above: Performed By: #### Q NTTBG #### [facility] [address] [place] [address] Darya Nell TB2 Ag Value 0.03 IU/mL Normal [facility] Comment on above: Performed By: #### Q NTTBG #### [facility] [address] [place], [place] [address] Darya Camejo VARICELLA IGG ABon 1 Varicella Zoster IgG <135 Critically low Immune >165 [facility] Comment on above: Result Comment: Nega tive <135 Equivocal 135 - 165 Positive >165 A positive result generally indicates exposure to the pathogen or administration of specific immunoglobulins, but it is not indication of active infection or stage of disease. Performed By: #### V ARCEL #### [facility] [address] [place] [id number] Darya Camejo COVID-19 PCRon 10-04-2019 SARS-CoV-2, DYLAN Not Detected Normal Not Detected [facility] Comment on above: Result Comment: This test was developed and its performance characteristics determined by [employer]. This test has not been FDA cleared [...] assay. Performed By: #### C VDPCR #### [facility] [address] [place] [address] Darya Camejo Chlam & GC, DNAon 04-28-2019 Chlamydia, DNA Negative Normal Negative [facility] Comment on above: Result Comment: The [...] Performed By: #### . Automated Diff #### [address] [place] [place] [address] Gonorrhea, DNA Negative Normal Negative [facility] Comment on above: Result Comment: The [...] Performed By: #### . Automated Diff #### [address] [address] Operative Reporton 9 Operative Report Patient: Iesha Thomas Age: 18 [...] Spontaneous cry was noted upon delivery. The ?s nose and mouth were bulb suctioned, the [...] in apparently stable condition. Electronically signed by KendallTorres DO, Elisa Moyaye 02/03/19 15:45 EST Normal [facility] CBC w/ Diffon 01-27-2019 Erythrocyte distribution width (RBC) [Ratio] 15.8 % High 11.6-14.8 [facility] Comment on above: Performed By: #### . Automated Diff #### [address] [address] Hematocrit (Bld) [Volume fraction] 26.5 % Low 36.0-46.0 [facility] Comment on above: Performed By: #### . Automated Diff #### [address] [address] Hemoglobin (Bld) [Mass/Vol] 8.6 g/dL Low 12.0-16.0 [facility] Comment on above: Performed By: #### . Automated Diff #### [address] [address] MCH (RBC) [Entitic mass] 27.3 pg Normal 27.0-35.0 [facility] Comment on above: Performed By: #### . Automated Diff #### [address] [address] MCHC (RBC) [Mass/Vol] 32.5 % Normal 31.0-37.0 [facility] Comment on above: Performed By: #### . Automated Diff #### [address] [address] MCV (RBC) [Entitic vol] 83.9 fL Normal 80.0-100.0 [facility] Comment on above: Performed By: #### . Automated Diff #### [address] [address] Platelet mean volume (Bld) [Entitic vol] 9.3 fL Normal 6.7-10.6 [facility] Comment on above: Performed By: #### . Automated Diff #### [address] [address] Platelets (Bld) [#/Vol] 131 x10*3/mcL Low 150-350 [facility] Comment on above: Performed By: #### . Automated Diff #### [address] [address] RBC (Bld) [#/Vol] 3.16 x10*6/mcL Low 3.80-5.20 [facility] Comment on above: Performed By: #### . Automated Diff #### [address] [address] WBC (Bld) [#/Vol] 13.3 x10*3/mcL High 4.5-11.0 [facility] Comment on above: Performed By: #### . Automated Diff #### [address] [address] Diff Autoon 01-27-2019 Baso Absolute 0.0 x10*3/mcL Normal 0.0-0.2 [facility] Comment on above: Performed By: #### . Automated Diff #### [address] [address] Basophils/100 WBC (Bld) 0.1 % Normal 0.0-1.5 [facility] Comment on above: Performed By: #### . Automated Diff #### [address] [address] Eos Absolute 0.1 x10*3/mcL Normal 0.0-0.4 [facility] Comment on above: Performed By: #### . Automated Diff #### [address] [address] Eosinophils/100 WBC (Bld) 0.4 % Normal 0.0-5.4 [facility] Comment on above: Performed By: #### . Automated Diff #### [address] [address] Lymphocytes (Bld) [#/Vol] 2.0 x10*3/mcL Normal 1.2-5.2 [facility] Comment on above: Performed By: #### . Automated Diff #### [address] [address] Lymphocytes/100 WBC (Bld) 14.7 % Low 28.0-42.0 [facility] Comment on above: Performed By: #### . Automated Diff #### [address] [address] [place] Absolute 1.5 x10*3/mcL High 0.1-1.1 [facility] Comment on above: Performed By: #### . Automated Diff #### [place] [id number] Monocytes/100 WBC (Bld) 11.4 % Normal 3.7-11.9 [facility] Comment on above: Performed By: #### . Automated Diff #### [place] [address] Neutro Absolute 9.8 x10*3/mcL High 1.8-8.0 [facility] Comment on above: Performed By: #### . Automated Diff #### [place] [address] Neutro Auto 73.4 % High 45.6-68.4 [facility] Comment on above: Performed By: #### . Automated Diff #### [place] [address] Inpatient Clinical Summaryon 01-27-2019 Inpatient Clinical Summary [address] [address] [place] [address] Clinical Summary Person Information Name: Iesha Thomas Age: 18 Years : 2000 Sex: Female PCP: Marital Status: Single PCP: Race: White Ethnicity: Not or Language: Gambian Visit Id: Visit Reason: IUP Speciality: Acuity: PP C/S Enc Type: Inpatient Med Service: Gynecology-Obstetrics Arrival: 01/24/2019 10:56:00 Discharge: Dispo Type: Address: [address] [place] [address] [place] [address] Diagnosis: Mother positive for group B Streptococcus [...] range between ( 28.0 and 42.0 ) Crenshaw Auto: 11.4 % -- Normal range between [...] range between ( 36.0 and 46.0 ) [place] Absolute: 1.5 x10 MCH: 27.3 pg -- [...] Documented This Visit New Medications [facility], [address] [place], [place] [id number], [phone] docusate (Doculase 100 mg oral capsule) 1 [...] DO Consulting Physician: Referring Physician: Follow up: Normal [facility] Obstetrics Progress Noteon 1 03-29-2018 Obstetrics [...] Known Allergies Problem list: All Problems / [id number] / Confirmed, Problems (Active Problems Only) (SNOMED CT: 689833777, Onset: 06/14/18) Physical Examination VS/Measurements Vital Signs [...] care. Diagnosis Thin meconium stained amniotic fluid ([id number] P96.83, Discharge, Medical). Prolonged ([id number] O48.1, Discharge, Medical). Post-op pain ([id number] G89.18, Discharge, Medical). Mother positive for group B Streptococcus colonization ([id number] P00.2, Discharge, Medical). Course: Progressing as expected, d/c home. Electronically signed by Elmira Thomas MD 01/27/19 10:36 EST Normal [facility] CBC w/ Diffon 01-26-2019 Erythrocyte distribution width (RBC) [Ratio] 15.8 % High 11.6-14.8 [facility] Comment on above: Performed By: #### . Automated Diff #### [address] [address] Hematocrit (Bld) [Volume fraction] 31.4 % Low 36.0-46.0 [facility] Comment on above: Performed By: #### . Automated Diff #### [address] [address] Hemoglobin (Bld) [Mass/Vol] 10.2 g/dL Low 12.0-16.0 [facility] Comment on above: Performed By: #### . Automated Diff #### [address] [address] MCH (RBC) [Entitic mass] 27.4 pg Normal 27.0-35.0 [facility] Comment on above: Performed By: #### . Automated Diff #### [address] [address] MCHC (RBC) [Mass/Vol] 32.6 % Normal 31.0-37.0 [facility] Comment on above: Performed By: #### . Automated Diff #### [address] [address] MCV (RBC) [Entitic vol] 84.1 fL Normal 80.0-100.0 [facility] Comment on above: Performed By: #### . Automated Diff #### [address] [address] Platelet mean volume (Bld) [Entitic vol] 9.4 fL Normal 6.7-10.6 [facility] Comment on above: Performed By: #### . Automated Diff #### [address] [address] Platelets (Bld) [#/Vol] 152 x10*3/mcL Normal 150-350 [facility] Comment on above: Performed By: #### . Automated Diff #### [address] [address] RBC (Bld) [#/Vol] 3.73 x10*6/mcL Low 3.80-5.20 [facility] Comment on above: Performed By: #### . Automated Diff #### [address] [address] WBC (Bld) [#/Vol] 22.8 x10*3/mcL High 4.5-11.0 [facility] Comment on above: Performed By: #### . Automated Diff #### [address] [address] Diff Autoon 01-26-2019 Baso Absolute 0.0 x10*3/mcL Normal 0.0-0.2 [facility] Comment on above: Performed By: #### . Automated Diff #### [address] [address] Basophils/100 WBC (Bld) 0.1 % Normal 0.0-1.5 [facility] Comment on above: Performed By: #### . Automated Diff #### [address] [address] Eos Absolute 0.0 x10*3/mcL Normal 0.0-0.4 [facility] Comment on above: Performed By: #### . Automated Diff #### [address] [address] Eosinophils/100 WBC (Bld) 0.0 % Normal 0.0-5.4 [facility] Comment on above: Performed By: #### . Automated Diff #### [address] [address] Lymphocytes (Bld) [#/Vol] 0.7 x10*3/mcL Low 1.2-5.2 [facility] Comment on above: Performed By: #### . Automated Diff #### [address] [address] Lymphocytes/100 WBC (Bld) 2.9 % Low 28.0-42.0 [facility] Comment on above: Performed By: #### . Automated Diff #### [address] [address] Crenshaw Absolute 1.0 x10*3/mcL Normal 0.1-1.1 [facility] Comment on above: Performed By: #### . Automated Diff #### [address] [address] Monocytes/100 WBC (Bld) 4.2 % Normal 3.7-11.9 [facility] Comment on above: Performed By: #### . Automated Diff #### [address] [address] Neutro Absolute 21.2 x10*3/mcL High 1.8-8.0 [facility] Comment on above: Performed By: #### . Automated Diff #### [address] [address] Neutro Auto 92.8 % High 45.6-68.4 [facility] Comment on above: Performed By: #### . Automated Diff #### [address] [address] Obstetrics Progress Noteon 1 03-28-2018 Obstetrics Progress [...] Last Charted Temp Oral 36.7 degC (JAN 26 01:30) Resp Rate 18 br/min (JAN 26:) SBP [...] repeat CBC tomorrow morning. Electronically signed by Molly Neal CNM 01/26/19 10:04 EST Normal [facility] CBC w/ Diffon 01-25-2019 Erythrocyte distribution width (RBC) [Ratio] 15.9 % High 11.6-14.8 [facility] Comment on above: Performed By: #### C BC #### [address] [address] Hematocrit (Bld) [Volume fraction] 30.6 % Low 36.0-46.0 [facility] Comment on above: Performed By: #### C BC #### [address] [address] Hemoglobin (Bld) [Mass/Vol] 10.2 g/dL Low 12.0-16.0 [facility] Comment on above: Performed By: #### C BC #### [address] [address] MCH (RBC) [Entitic mass] 28.0 pg Normal 27.0-35.0 [facility] Comment on above: Performed By: #### C BC #### [address] [address] MCHC (RBC) [Mass/Vol] 33.3 % Normal 31.0-37.0 [facility] Comment on above: Performed By: #### C BC #### [address] [address] MCV (RBC) [Entitic vol] 84.1 fL Normal 80.0-100.0 [facility] Comment on above: Performed By: #### C BC #### [address] [address] Platelet mean volume (Bld) [Entitic vol] 9.2 fL Normal 6.7-10.6 [facility] Comment on above: Performed By: #### C BC #### [address] [address] Platelets (Bld) [#/Vol] 150 x10*3/mcL Normal 150-350 [facility] Comment on above: Performed By: #### C BC #### [address] [address] RBC (Bld) [#/Vol] 3.64 x10*6/mcL Low 3.80-5.20 [facility] Comment on above: Performed By: #### C BC #### [address] [address] WBC (Bld) [#/Vol] 17.0 x10*3/mcL High 4.5-11.0 [facility] Comment on above: Performed By: #### C BC #### [address] [address] Diff Autoon 01-25-2019 Baso Absolute 0.0 x10*3/mcL Normal 0.0-0.2 [facility] Comment on above: Performed By: #### . Automated Diff #### [address] [address] Basophils/100 WBC (Bld) 0.0 % Normal 0.0-1.5 [facility] Comment on above: Performed By: #### . Automated Diff #### [address] [address] Eos Absolute 0.0 x10*3/mcL Normal 0.0-0.4 [facility] Comment on above: Performed By: #### . Automated Diff #### [address] [address] Eosinophils/100 WBC (Bld) 0.1 % Normal 0.0-5.4 [facility] Comment on above: Performed By: #### . Automated Diff #### [address] [address] Lymphocytes (Bld) [#/Vol] 1.6 x10*3/mcL Normal 1.2-5.2 [facility] Comment on above: Performed By: #### . Automated Diff #### [address] [address] Lymphocytes/100 WBC (Bld) 9.5 % Low 28.0-42.0 [facility] Comment on above: Performed By: #### . Automated Diff #### [address] [address] Crenshaw Absolute 1.5 x10*3/mcL High 0.1-1.1 [facility] Comment on above: Performed By: #### . Automated Diff #### [address] [address] Monocytes/100 WBC (Bld) 9.0 % Normal 3.7-11.9 [facility] Comment on above: Performed By: #### . Automated Diff #### [address] [address] Neutro Absolute 13.8 x10*3/mcL High 1.8-8.0 [facility] Comment on above: Performed By: #### . Automated Diff #### [address] [address] Neutro Auto 81.4 % High 45.6-68.4 [facility] Comment on above: Performed By: #### . Automated Diff #### [address] [address] Obstetrics Progress Noteon 1 03-27-2018 Obstetrics Progress [...] list: Problems (Active Problems Only) (SNOMED CT: [id number], Onset: 06/14/18) Physical Examination VS/Measurements Vital Signs [...] Normal range of motion. Integumentary: Warm, Dry, [place]. Neurologic: Alert, Oriented. Psychiatric: Cooperative. Review / Management OB Results Review MASOOD/ EGA: 01/24/2019 13:11 EST 1 Current 01/25/2019 19:57 EST Monitoring Annotations Plan of care being discussed. 01/25/2019 19:56 EST Monitoring Annotations SVE per Estefania Rowlandtig CNM. 01/25/2019 19:54 EST Monitoring Annotations Estefania Rowlandtig CNM at bedside. 01/25/2019 19:05 EST Monitoring [...] Was notified at 191 by RN that had prolonged deceleration with moderate variability and [...] Team - anesthesia, Dr Grace, and surgical training specialist were notified by director of pulmonary unit at 2007 for a planned 2044 c/s. Consents were obtained. Electronically signed by Molly Neal CNM 01/25/19 20:35 EST Normal [facility] Obstetrics Progress Note Patient: Iesha Thomas [...] list: Problems (Active Problems Only) (SNOMED CT: 869128054, Onset: 06/14/18) Physical Examination VS/Measurements Vital Signs [...] amniotic fluid (meconium, leaking). Integumentary: Warm, Dry, [place]. Neurologic: Alert, Oriented. Psychiatric: Cooperative. Review / [...] variability 01/25/2019 14:57 EST Monitoring Annotations Yousif CNM updated on status of pt, review [...] Station -2 01/25/2019 10:00 EST Monitoring Annotations Yousif WAGONER at bedside for review of strip, [...] Present 01/25/2019 13:51 EST Monitoring Annotations Dom EMERGENCY PLANNER at bedside discussing epidural and obtaining consent. [...] Station -2 01/25/2019 10:00 EST Monitoring Annotations Yousif WAGONER at bedside for review of strip, [...] Molly Neal CNM 01/25/19 16:40 EST Normal [facility] Obstetrics Progress Note Patient: Iesha Thomas [...] list: Problems (Active Problems Only) (SNOMED CT: 917997675, Onset: 06/14/18) Physical Examination VS/Measurements Vital Signs (last 24 hrs) Last Charted Temp Oral 36.8 degC (JAN 24 11:45) Resp Rate 16 br/min (JAN 25:15) SBP 107 mmHg (JAN 25:15) DBP L 56mmHg (JAN 25:15) Weight 106 kg (JAN 24 11:21) General: [...] Normal range of motion. Integumentary: Warm, Dry, [place]. Neurologic: Alert, Oriented. Psychiatric: Cooperative. Review / [...] Plan Diagnosis Thin meconium stained amniotic fluid ([id number] P96.83, Discharge, Medical). condition: Reassuring heart rate. Maternal condition: Stable. Plan Continue present care. AROM was done with patient consent and without difficulty. Continue pitocin per protocol Epidural if patient desires Dr Grace updated on status Electronically signed by Val SHONDAMolly Pan Kyleigh 01/25/19 10:05 EST Normal [facility] CBC w/ Diffon 01-24-2019 Erythrocyte distribution width (RBC) [Ratio] 15.8 % High 11.6-14.8 [facility] Comment on above: Performed By: #### C BC #### [address] [address] Hematocrit (Bld) [Volume fraction] 30.4 % Low 36.0-46.0 [facility] Comment on above: Performed By: #### C BC #### [address] [address] Hemoglobin (Bld) [Mass/Vol] 10.3 g/dL Low 12.0-16.0 [facility] Comment on above: Performed By: #### C BC #### [address] [address] MCH (RBC) [Entitic mass] 28.0 pg Normal 27.0-35.0 [facility] Comment on above: Performed By: #### C BC #### [address] [address] MCHC (RBC) [Mass/Vol] 33.8 % Normal 31.0-37.0 [facility] Comment on above: Performed By: #### C BC #### [address] [address] MCV (RBC) [Entitic vol] 83.0 fL Normal 80.0-100.0 [facility] Comment on above: Performed By: #### C BC #### [address] [address] Platelet mean volume (Bld) [Entitic vol] 9.3 fL Normal 6.7-10.6 [facility] Comment on above: Performed By: #### C BC #### [address] [address] Platelets (Bld) [#/Vol] 114 x10*3/mcL Low 150-350 [facility] Comment on above: Performed By: #### C BC #### [address] [address] RBC (Bld) [#/Vol] 3.67 x10*6/mcL Low 3.80-5.20 [facility] Comment on above: Performed By: #### C BC #### [address] [address] WBC (Bld) [#/Vol] 13.9 x10*3/mcL High 4.5-11.0 [facility] Comment on above: Performed By: #### C BC #### [address] [address] Diff Autoon 01-24-2019 Baso Absolute 0.0 x10*3/mcL Normal 0.0-0.2 [facility] Comment on above: Performed By: #### . Automated Diff #### [address] [address] Basophils/100 WBC (Bld) 0.3 % Normal 0.0-1.5 [facility] Comment on above: Performed By: #### . Automated Diff #### [address] [address] Eos Absolute 0.0 x10*3/mcL Normal 0.0-0.4 [facility] Comment on above: Performed By: #### . Automated Diff #### [address] [address] Eosinophils/100 WBC (Bld) 0.3 % Normal 0.0-5.4 [facility] Comment on above: Performed By: #### . Automated Diff #### [address] [address] Lymphocytes (Bld) [#/Vol] 1.4 x10*3/mcL Normal 1.2-5.2 [facility] Comment on above: Performed By: #### . Automated Diff #### [address] [address] Lymphocytes/100 WBC (Bld) 10.3 % Low 28.0-42.0 [facility] Comment on above: Performed By: #### . Automated Diff #### [address] [address] Crenshaw Absolute 1.0 x10*3/mcL Normal 0.1-1.1 [facility] Comment on above: Performed By: #### . Automated Diff #### [address] [address] Monocytes/100 WBC (Bld) 6.9 % Normal 3.7-11.9 [facility] Comment on above: Performed By: #### . Automated Diff #### [address] [address] Neutro Absolute 11.4 x10*3/mcL High 1.8-8.0 [facility] Comment on above: Performed By: #### . Automated Diff #### [address] [address] Neutro Auto 82.2 % High 45.6-68.4 [facility] Comment on above: Performed By: #### . Automated Diff #### [address] [address] History and Physicalon 01-24 History and Physical [...] Last Charted Temp Oral 36.8 degC (JAN 24:) Resp Rate 16 br/min (JAN 24:) SBP 118 mmHg (JAN 24) DBP 70 mmHg (JAN 24) Weight 106 kg (JAN 24:21) General: Alert and oriented. HENT: Normocephalic. Respiratory: [...] Normal range of motion. Integumentary: Warm, Dry, [place]. Neurologic: Alert, Oriented. Psychiatric: Cooperative. Review / [...] Mother positive for group B Streptococcus colonization ([id number] P00.2, Discharge, Medical). Prolonged (WUE79-ML O48.1, Discharge, Medical). condition: Reassuring heart rate. Maternal condition: Stable. Plan Admit. Discussed with spouse and patient - IOL process. Discussed cervidil for cervical ripening then Pitocin for IOL. Dr Grace is agreeable with plan of care. Education and Follow-up: Counseled: Patient, Family, Regarding diagnosis, Regarding treatment, Regarding medications. Discharge Planning: Plan to discharge ( To home ). Electronically signed by Val WAGONERDeanneMolly [facility] 01/24/19 12:20 EST Normal [facility] UDS OB/Con 01-24-2019 Creatinine [Mass/Vol] 102.2 mg/dL Normal Bl [facility] Comment on above: Performed By: #### C [id number] #### [facility] [address] [place] [address] Ur Amph Scrn w/Conf Negative Normal NEG = <1000 [facility] Comment on above: Performed By: #### C [id number] #### [facility] [address] [place] [address] Ur Serene Scrn w/Conf Negative Normal NEG = <200 [facility] Comment on above: Performed By: #### C [id number] #### [address] [address] Ur Benzodia Scrn w/Conf Negative Normal NEG = <200 [facility] Comment on above: Performed By: #### C [id number] #### [address] [address] Ur Cannab Scrn w/Conf Negative Normal NEG = <50 [facility] Comment on above: Performed By: #### C [id number] #### [address] [address] Ur Cocaine Scrn w/Conf Negative Normal NEG = <300 [facility] Comment on above: Performed By: #### C [id number] #### [address] [address] Ur Methadone Scrn w/Conf Negative Normal NEG = <300 [facility] Comment on above: Performed By: #### C [id number] #### [address] [address] Ur Opiate Scrn w/Conf Negative Normal NEG = <300 [facility] Comment on above: Performed By: #### C [id number] #### [address] [address] Ur Oxy Screen w/Conf Negative Normal NEG = <100 [facility] Comment on above: Performed By: #### C [id number] #### [address] [address] Ur Oxy Scrn Qnt w/Confirm 10 ng/mL Normal <=99 [facility] Comment on above: Performed By: #### C [id number] #### [address] [address] Ur PCP Scrn w/Conf Negative Normal NEG = <25 [facility] Comment on above: Performed By: #### C [id number] #### [address] [address] [employer] Engine [employer] TEJAS QC [place] Yes Normal [facility] Comment on above: Performed By: #### C [id number] #### [place] [address] Ur Buprenorphine Scrn w/Conf Negative Normal NEG = <10 [facility] Comment on above: Performed By: #### C [id number] #### [place] [address] UA pH 6.0 Normal 4.5 - 7.8 [facility] Comment on above: Performed By: #### C [id number] #### [place] [address] UA Spec Grav 1.015 Normal 1.003-1.035 [facility] Comment on above: Performed By: #### C D:[id number] #### [place] [address] Grp B PCRon 12-29-2018 Allergic to Penicillin? Unknown Normal [facility] Comment on above: Result Comment: For antibiotic sensitivity, please contact the Laboratory to request anti-microbial susceptibility testing within 7 days of specimen collection. Performed By: #### C D:[id number] #### [place] [address] Group B Strep PCR Positive Abnormal Negative [facility] Comment on above: Result Comment: Grou p B Strep nucleic acid detected. The [employer] GBS Assay is an automated nucleic acid [...] clindamycin is noted. Performed By: #### C D:[id number] #### [facility] [address] [place] [address] Cult,Urineon 06-26-2018 Cult,Urine Specimen Description .CLEAN CATCH URINE Special Requests NOT REPORTED Culture NO SIGNIFICANT GROWTH Report Status FINAL 06/25/2018 Normal [facility] Comment on above: Performed By: #### U RC #### [address] [id number] [employer] Equipment Operator: Morgan Carlton MD [facility] [address] [place] [address] [employer] Course Equipment Operator: Chano Camacho MD Chlamydia/GC DNA, Uron 06-25 Protein mass conc Negative Normal NEG [facility] Comment on above: Result Comment: CHLA MYDIA [...] target. Performed By: #### U CGP #### [address] [id number] [employer] Equipment Operator: Morgan Carlton MD Result Comment: NEIS SERIA [...] HIV Ag/Abon 06-25-2018 HIV Ag/Ab NONREACTIVE Normal NR [facility] Comment on above: Result Comment: No l aboratory evidence of HIV infection. If acute HIV infection is suspected, consider testing for HIV-1 RNA. Performed By: #### H IVCMB, AHCV #### [address] [id number] [employer] Operator: Morgan Carlton MD Hep C Abon 06-25-2018 Hep C Ab NONREACTIVE Normal [facility] Comment on above: Result Comment: The hepatitis [...] Performed By: #### H IVCMB, AHCV #### [address] [address] [employer] Equipment Operator: Morgan Carlton MD Profileon 9 Hep B Surf Ag NONREACTIVE Normal [facility] Comment on above: Performed By: #### P RENAT #### [address] [address] [employer] Equipment Operator: Morgan Carlton MD [address] [place] [id number] [employer] Equipment Operator: Chano Camacho MD Rubella Ab, IgG 61.8 IU/mL Normal [facility] Comment on above: Result Comment: REFERENCE RANGE: <5.0 NON-REACTIVE (non-immune) 5.0 TO 9.9 EQUIVOCAL >=10.0 REACTIVE (immune) Performed By: #### P RENAT #### [address] [address] [employer] Equipment Operator: Morgan Carlton MD [address] [place] [address] [employer] Course Equipment Operator: Chano Camacho MD T.pallidum Ab Screen NONREACTIVE Normal [facility] Comment on above: Result Comment: T. pallidum antibodies are not detected. There is no serological evidence of infection with T. pallidum (early primary syphilis cannot be excluded). Retest in 2-4 weeks if syphilis is clinically suspect. Performed By: #### P RENAT #### [address] [address] [employer] Equipment Operator: Morgan Carlton MD [address] [place] [address] [employer] Equipment Operator: Chano Camacho MD Profileon 9 Abs. Basophil <0.03 Normal 0.00-0.20 [facility] Comment on above: Performed By: #### P RENAT #### [address] [address] [employer] Equipment Operator: Morgan Carlton MD [address] [place] [id number] [employer] Equipment Operator: Chano Camacho MD Abs.Imm.Granulocyte 0.06 k/uL Normal 0.00-0.30 [facility] Comment on above: Performed By: #### P RENAT #### [address] [address] [employer] Equipment Operator: Morgan Carlton MD [address] [place] [address] [employer] Course Equipment Operator: Chano Camacho MD Abs.Neutrophil (Seg) 8.80 k/uL High 1.80-8.00 [facility] Comment on above: Performed By: #### P RENAT #### [address] [address] [employer] Course Equipment Operator: Morgan Carltno MD [address] [place] [address] [employer] Course Equipment Operator: Chano Camacho MD Basophils/100 WBC (Bld) 0 % Normal 0-2 [facility] Comment on above: Performed By: #### P RENAT #### [address] [address] [employer] Course Equipment Operator: Morgan Carlton MD [address] [place] [id number] [employer] Equipment Operator: Chano Camacho MD Eosinophils #/vol (Bld) 0.03 10*3/uL Normal 0.00-0.44 [facility] Comment on above: Performed By: #### P RENAT #### [facility] [address] [place] [address] [employer] Course Equipment Operator: Morgan Carlton MD [facility] [address] [place] [address] Dr. [place], [place] [id number] [employer] Course Equipment Operator: Chano Camacho MD Eosinophils/100 WBC (Bld) 0 % Low 1-4 [facility] Comment on above: Performed By: #### P RENAT #### [address] [address] [employer] Course Equipment Operator: Morgan Carlton MD [facility] [address] [place] [address] Dr. [place] [phone] [employer] Equipment Operator: Chano Camacho MD Erythrocyte distribution width Ratio (RBC) 12.5 % Normal 11.8-14.4 [facility] Comment on above: Performed By: #### P RENAT #### [address] [address] [employer] Course Equipment Operator: Morgan Carlton MD [facility] [address] [place] [address] [place] [address] [employer] Course Equipment Operator: Chano Camacho MD Hematocrit Volume Fraction (Bld) 42.0 % Normal 36.3-47.1 [facility] Comment on above: Performed By: #### P RENAT #### [address] [address] [employer] Equipment Operator: Morgan Carlton MD [facility] [address] [place] [address] Dr. [place], [place] [phone] [employer] Equipment Operator: Chano Camacho MD Hemoglobin mass conc (Bld) 14.0 g/dL Normal 11.9-15.1 [facility] Comment on above: Performed By: #### P RENAT #### [address] [address] [employer] Equipment Operator: Morgan Carlton MD [facility] [address] [place] [address] [place], [place] [phone] [employer] Equipment Operator: Chano Camacho MD Immature granulocytes #/vol (Bld) 1 % High 0 [facility] Comment on above: Performed By: #### P RENAT #### [facility] [address] [place] [address] [employer] Course Equipment Operator: Morgan Carlton MD [facility] [address] [place] [address] Dr. [place] [phone] [employer] Equipment Operator: Chano Camacho MD Lymphocytes #/vol (Bld) 1.61 10*3/uL Normal 1.20-5.20 [facility] Comment on above: Performed By: #### P RENAT #### [address] [address] [employer] Course Equipment Operator: Morgan Carlton MD [address] [place] [phone] [employer] Equipment Operator: Chano Camacho MD Lymphocytes/100 WBC (Bld) 14 % Low 25-67 [facility] Comment on above: Performed By: #### P RENAT #### [address] [address] [employer] Equipment Operator: Morgan Carlton MD [address] [place] [phone] [employer] Equipment Operator: Chano Camacho MD MCH Entitic mass (RBC) 29.7 pg Normal 25.2-33.5 [facility] Comment on above: Performed By: #### P RENAT #### [facility] [address] [place] [address] [employer] Equipment Operator: Morgan Carlton MD [facility] [address] [place] [address] Dr. [place] [phone] [employer] Equipment Operator: Chano Camacho MD MCHC mass conc (RBC) 33.3 g/dL Normal 28.4-34.8 [facility] Comment on above: Performed By: #### P RENAT #### [address] [address] [employer] Equipment Operator: Morgan Carlton MD [address] [place] [address] [employer] Course Equipment Operator: Chano Camacho MD MCV Entitic volume (RBC) 89.0 fL Normal 82.6-102.9 [facility] Comment on above: Performed By: #### P RENAT #### [address] [address] [employer] Equipment Operator: Morgan Carlton MD [address] [place] [phone] [employer] Equipment Operator: Chano Camacho MD Monocytes #/vol (Bld) 0.73 10*3/uL Normal 0.10-1.40 [facility] Comment on above: Performed By: #### P RENAT #### [address] [address] [employer] Course Equipment Operator: Morgan Carlton MD [address] [place] [phone] [employer] Equipment Operator: Chano Camacho MD Monocytes/100 WBC (Bld) 7 % Normal 2-8 [facility] Comment on above: Performed By: #### P RENAT #### [address] [address] [employer] Equipment Operator: Morgan Carlton MD [address] [place] [phone] [employer] Equipment Operator: Chano Camacho MD Neutrophil (Seg) 78 % High 34-64 [facility] Comment on above: Performed By: #### P RENAT #### [address] [address] [employer] Course Equipment Operator: Morgan Carlton MD [address] [place] [address] [employer] Course Equipment Operator: Chano Camacho MD NRBC Automated 0.0 per 100 WBC Normal 0.0 [facility] Comment on above: Performed By: #### P RENAT #### [place] [address] [place] [address] [employer] Course Equipment Operator: Morgan Carlton MD [facility] [address] [place] [address] Dr[place], [place] [id number] [employer] Equipment Operator: Chano Camacho MD Platelet mean volume Entitic volume (Bld) 10.6 fL Normal 8.1-13.5 [facility] Comment on above: Performed By: #### P RENAT #### [address] [address] [employer] Course Equipment Operator: Morgan Carlton MD [address] [place] [phone] [employer] Equipment Operator: Chano Camacho MD Platelets #/vol (Bld) 193 10*3/uL Normal 138-453 [facility] Comment on above: Performed By: #### P RENAT #### [address] [address] [employer] Course Equipment Operator: Morgan Carlton MD [address] [place] [phone] [employer] Equipment Operator: Chano Camacho MD RBC #/vol (Bld) 4.72 10*6/uL Normal 3.95-5.11 [facility] Comment on above: Performed By: #### P RENAT #### [address] [address] [employer] Equipment Operator: Morgan Carlton MD [facility] [address] [place] [address] [place] [id number] [employer] Equipment Operator: Chano Camacho MD WBC #/vol (Bld) 11.3 10*3/uL Normal 4.5-13.5 [facility] Comment on above: Performed By: #### P RENAT #### [address] [address] [employer] Course Equipment Operator: Morgan Carlton MD [address] [place] [address] [employer] Course Equipment Operator: Chano Camacho MD Auto Diff Performed NOT REPORTED Normal [facility] Comment on above: Performed By: #### P RENAT #### [place] [address] [place] [address] [employer] Course Equipment Operator: Morgan Carlton MD [address] [place] [phone] [employer] Equipment Operator: Chano Camacho MD Platelets #/vol (Bld) NOT REPORTED Normal [facility] Comment on above: Performed By: #### P RENAT #### [address] [address] [employer] Course Equipment Operator: Morgan Carlton MD [address] [place] [phone] [employer] Equipment Operator: Chano Camacho MD RBC morphology finding Nom (Bld) NOT REPORTED Normal [facility] Comment on above: Performed By: #### P RENAT #### [address] [address] [employer] Course Equipment Operator: Morgan Carlton MD [address] [place] [address] [employer] Course Equipment Operator: Chano Camacho MD WBC Morphology NOT REPORTED Normal [facility] Comment on above: Performed By: #### P RENAT #### [address] [address] [employer] Course Equipment Operator: Morgan Carlton MD [address] [place] [phone] [employer] Equipment Operator: Chano Camacho MD Type + Scrnon 06-24 Type + Scrn Negative [facility] Comment on above: Performed By: #### P RTYS #### [address] [place], [place] 1219983 [employer] Equipment Operator: Chano Camacho MD Toxicology Scree, Urineon Amphetamine(s),Ur Negative Normal NEG [facility] Comment on above: Performed By: #### C PDAU #### [facility] [address] [place], [place] 6368083 [employer] Equipment Operator: Chano Camacho MD Barbiturate(s),Ur Negative Normal NEG [facility] Comment on above: Performed By: #### C PDAU #### [facility] [address] [place], [place] [phone] [employer] Equipment Operator: Chano Camacho MD Benzodiazepine(s) Negative Normal [facility] Comment on above: Performed By: #### C PDAU #### [facility] [address] [place], [place] 425[address]83 [employer] Equipment Operator: Chano Camacho MD Buprenorphrine, Ur Negative Normal NEG [facility] Comment on above: Performed By: #### C PDAU #### [facility] [address] [place], [place] 3274683 [employer] Equipment Operator: Chano Camacho MD Cannabinoid(s),Ur Negative Normal [facility] Comment on above: Performed By: #### C PDAU #### [facility] [address] [place], [place] 6377083 [employer] Equipment Operator: Chano Camacho MD Cocaine Metabolite Negative Normal [facility] Comment on above: Performed By: #### C PDAU #### [facility] [address] [place], [place] 1003083 [employer] Equipment Operator: Chano Camacho MD Methadone Ql (U) Negative Normal NEG [facility] Comment on above: Performed By: #### C PDAU #### [facility] [address] [place], [place] 0643783 [employer] Equipment Operator: Chano Camacho MD Methamphetamine, Ur Negative Normal [facility] Comment on above: Performed By: #### C PDAU #### [facility] [address] [place], [place] 4700783 [employer] Equipment Operator: Chano Camacho MD Opiate(s), Ur Negative Normal NEG [facility] Comment on above: Performed By: #### C PDAU #### [facility] [address] [place], [place] 6036383 [employer] Equipment Operator: Chano Camacho MD Oxycodone, Urine Negative Normal NEG [facility] Comment on above: Performed By: #### C PDAU #### [facility] [address] [place] [address] [employer] Equipment Operator: Chano Camacho MD Phencyclidine, Ur Negative Normal NEG [facility] Comment on above: Performed By: #### C PDAU #### [facility] [address] [place], [place] 9152783 [employer] Equipment Operator: Chano Camacho MD Protein mass conc (U) Negative Normal NEG [facility] Comment on above: Performed By: #### C PDAU #### [facility] [address] [place], [place] 7750083 [employer] Equipment Operator: Chano Camacho MD Tricyclic antidepressants Screen Ql (U) Negative Normal NEG [facility] Comment on above: Result Comment: Drug screen results are to be used for medical purposes only. All positive results are unconfirmed. Testing for employment or legal uses should be sent to a reference laboratory for confirmation. Performed By: #### C PDAU #### [facility] [address] [place], [place] 5506083 [employer] Equipment Operator: Chano Camacho MD Interpretive Info NOT REPORTED Normal [facility] Comment on above: Performed By: #### C PDAU #### [facility] [address] [place], [place] 1870783 [employer] Equipment Operator: Chano Camacho MD MDMA, Urine NOT REPORTED Normal NEG [facility] Comment on above: Performed By: #### C PDAU #### [facility] [address] [place] [address] [employer] Course Equipment Operator: Chano Camacho MD Vital Signs Date Time Vital Sign Value Performing Clinician Naseem rai 03-06-2023 11:36-0500 Body mass index (BMI) [Ratio] 37.61 kg/m2 Hood Floro CNM Work Phone: [facility] 03-06-2023 11:36-0500 Body weight 102.51 kg Hood Floro CNM Work Phone: [facility] 03-06-2023 11:36-0500 Diastolic blood pressure 80 mm[Hg] Hood Floro CNM Work Phone: [facility] 03-06-2023 11:36-0500 Systolic blood pressure 118 mm[Hg] Hood Floro CNM Work Phone: [facility] Encounters Encounter Date Encounter Type Care Provider Facility Start: 04-10-2023 End: 04-10-2023 ambulatory VALENCIA RASHAD Not Available Start: 03-28-2023 End: 03-29-2023 ambulatory HOOD L FLORO Not Available Start: 03-06-2023 End: 03-07-2023 ambulatory HOOD L FLORO Not Available Start: 03-06-2023 End: 03-06-2023 Office outpatient visit 15 minutes Hood L Floro CNM Work Phone: [facility] Comment on above: Unwanted fertility ( Primary Dx) Start: 02-05-2023 End: 02-06-2023 ambulatory HOOD L FLORO Not Available Start: 01-23-2023 End: 01-24-2023 ambulatory HOOD L FLORO Not Available Start: 03-26-2020 End: 03-27-2020 Patient encounter procedure LA MALDONADO Facility:[facility] Start: 10-01-2019 End: 10-02-2019 Patient encounter procedure DRAGAN BLACKWOOD Facility:[facility] Start: 01-24-2019 End: 01-27-2019 Evaluation and management of inpatient ELISA MIXON SIDDHARTHA SHAYG Facility:[facility] Start: 06-24-2018 End: 06-25-2018 Patient encounter procedure SOHEILA MEHTA [facility] Start: 06-24-2018 End: 06-24-2018 Patient encounter procedure SOHEILA MEHTA [facility] Procedures Date Procedure Procedure Detail Performing Clinician Start: 06-24-2018 C.TRACHOMATIS N.GONO RRHOEAE DNA, URINE SOHEILA MEHTA Start: 06-24-2018 Culture bacterial qu anttative colony count urine SOHEILA MEHTA Start: 06-24-2018 Drug screen, qualitate/multi SOHEILA MEHTA Start: 06-24-2018 Antibody hiv-1&hiv-2 single result SOHEILA MEHTA Start: 06-24-2018 Hepatitis c antibody FAY VILLANUEVA Start: 06-24-2018 Obstetric panel SOHEILA Carlson [facility] Start: 06-24-2018 TYPE AND SCREEN SOHEILA MEHTA Plan of Treatment Date Care Activity Detail Author Start: 05-07-2023 End: 05-07-2023 Professional / ancillary services management 05/07/2023 9:30 AM EST Ancillary Procedure [facility] [address] [place] [address] [place] [id number] [facility] Start: 11-17-2022 Influenza vaccination Influenza Vacc ine (#1) [facility] Immunizations Immunization Date Immunization Notes Care Provider Fa [facility] 01-13-2021 influenza virus vacc ine, unspecified formulation Hood Tiwari CNM Work Phone: [facility] Payers Date Payer Category Payer Unknown [id number] 2022 Unknown [id number] 2018 Unknown 2012 Unknown [id number] 1998 Unknown [id number] 2.16.8 [id number] 1998 Unknown [id number] 2.16.8 [id number] 1998 Unknown [id number] 2.16.8 [id number] 1998 Unknown [id number] 2.16.84 [id number] 1998 Unknown [id number] 2.16.84 [id number] 1998 Unknown [id number] 2.16.84 [id number] 1998 Unknown [id number] 2.16.840 .[id number] 1998 Unknown [id number] 2.16.840 .[id number] 1998 Unknown [id number] [id number] 1959 Self-pay Unknown [id number] 2.16.84 [id number] Social History Date Type Detail Facility Start: 10-10-2022 Tobacco smoking stat [facility] Never smoked tobacco [facility] Start: 10-10-2022 Tobacco use and exposure Smokeless t obacco non-user [facility] Start: 03-06-2023 Alcohol intake Ex-drinker (finding) [facility] Start: 10-10-2022 End: 03-28-2023 History of Social function [facility] Start: 10-10-2022 End: 03-28-2023 Tobacco use panel [facility] Start: 09-14-2022 Alcohol Comment caffeine: 1-2 cups/d ay [facility] Start: 2000 Sex Assigned At Not on file N [facility] Start: 01-25-2023 End: 02-04-2023 Exposure to SARS-CoV-2 (event) Not sure [facility] History of Present illness Narrative 03-06-2023 Hood Tiwari CNM - 03/06/2023 11:30 AM EST Note Date & Type Note Facility 03-06-2023 History of Presen t illness Narrative Iesha Hilliarddanymirzajolynnleatha is here for visit. She is 6 weeks . Complaints: has no unusual complaints Weeks at delivery: 39 week Type of delivery: , Low Transverse; repeat Gender: male Baby is healthy: yes Breast or bottle feeding: breast Complaints or complications: no complications mood: well Contraception: Resumed Sexual activity: no Resumed Menses: no EXAM: GENERAL APPEARANCE: alert, well appearing, in no apparent distress ASSESSMENT/PLAN: There are no diagnoses linked to this encounter. normal exam documented in this encounter [facility] Evaluation note Note Date & Type Note Facility Evaluation note Diagnosis Unwanted fertility- Primary documented in this encounter [facility] Summary Purpose Family History No Family History [...] Review Problems (Active Problems Only) (SNOMED CT: [id number], Onset: 06/14/18) Delivery Summary A Membrane Status [...] section and content) DATE CREATED AUTHOR [facility]26/2018 [facility] DATE CREATED AUTHOR AUTHOR'S ORGANIZ ATION 04/28/2019 [facility] DATE CREATED AUTHOR AUTHOR'S ORGANIZ ATION 04/01/2020 [facility] DATE CREATED AUTHOR AUTHOR'S ORGANIZ ATION 04/11/2023 [facility] EPIC Reason for Visit (unrecogniz ed section and content) Reason Comments Care Care Teams (unrecognized sec tion and content) Blister Rust Eradicator Relationship Specialty Start Date End Date Dragan Blackwood MD [address] [place] [id number], [address] [place], [place] [id number] PCP - General Family Medicine 10/10/22 Hood Tiwari CNM [address] [place] [address] Obstetrics and Gynecology 08/15/22 FOR RECORDS PERTAINING TO PATIENTS WHO ARE [...] BE BASED ON THE PRIMARY CLINICAL RECORDS. [employer] provides no warranty or guarantee of the accuracy or completeness of information in this document.
== END 2023-06-21 09:04 | disposition home or self-care (01) ==
LOC: NOMS 09:03
PROVIDERS: PCP Internal Medicine; Visit Provider Obstetrics & Gynecology
DX: R10.2 Pelvic and perineal pain (principal); Z97.5 Presence of (intrauterine) contraceptive device
CPT/HCPCS: 76830